=== PATIENT | male | born 1940 | race Caucasian/White ===

== ENCOUNTER → 2020-01-12 14:47 | Outpatient (ROUT) | payer MEDICARE, OTHER, SELFPAY ==
[2020-01-12 15:07] LABS: Add Manual Diff / Slide Review NO; Basophils Absolute Auto 100 /uL (0-100); Basophils Percent Auto 0.8 % (0-2); Eosinophils Absolute Auto 200 /uL (0-450); Eosinophils Percent Auto 2.5 % (2-4); Hematocrit 45.7 % (41-53); Hemoglobin 15.3 g/dL (13.5-17.5); Lymphocytes Absolute Auto 2000 /uL (1100-4500); Lymphocytes Percent Auto 26.6 % (25-40); Mean Corpuscular HGB Conc 33.4 % (30-36); Mean Corpuscular Hemoglobin 28.5 PG (26-34); Mean Corpuscular Volume 85.2 fL (80-100); Monocytes Absolute Auto 600 /uL (0-900); Monocytes Percent Auto 7.6 % (3-14); Neutrophils Absolute Auto 4700 /uL (1500-7000); Neutrophils Percent Auto 62.5 % (50-75); Platelet Count 367 X10^3/uL (150-400); Red Blood Cell Count 5.36 X10^6/uL (4.5-5.9); Red Cell Distribution Width 14.1 % (11.6-14.8); White Blood Cell Count 7.5 X10^3/uL (4.5-11.0)
[2020-01-12 15:19] LABS: Alanine Aminotransferase 24 IU/L (<50); Albumin 4.5 g/dL (3.5-5.0); Albumin Globulin Ratio 1.5 (1.0-2.8); Alkaline Phosphatase 73 U/L (38-126); Aspartate Aminotransferase 26 IU/L (17-59); BUN Creatinine Ratio 22.9 (6-22); Bilirubin Total 0.9 mg/dL (0.2-1.3); Blood Urea Nitrogen 22 mg/dL (9-20); Calcium 9.5 mg/dL (8.4-10.2); Carbon Dioxide 24 mmol/L (22-32); Chloride 104 mmol/L (98-107); Cholesterol 158 mg/dL (140-199); Estimated Glomerular Filt Rate > 60.0 mL/min (>60); Globulin 3.1 g/dL (1.7-4.1); Glucose 99 mg/dL (80-110); HDL Cholesterol 31 mg/dL (40-60); HEMOLYSIS < 15 (0-50); LDL Cholesterol Calculated 94 mg/dL (<100); Sodium 136 mmol/L (137-145); Total Protein 7.6 g/dL (6.3-8.2); Triglycerides 167 mg/dL (35-150)
[2020-01-12 15:41] LABS: TSH w/ Reflex to FT4 2.23 uIU/mL (0.47-4.68)
== END ==
PROVIDERS: PCP Internal Medicine; Visit Provider Internal Medicine
DX: E78.5 Hyperlipidemia, unspecified (principal); I10 Essential (primary) hypertension; R53.83 Other fatigue
CPT/HCPCS: 80053; 80061; 84443; 85025

== ENCOUNTER 2020-02-27 07:43 | Emergency (ER) | payer MEDICARE, OTHER, SELFPAY ==
[2020-02-27 08:17] VITALS: BP 130/64; PULSE 90; RESP 18; TEMP 37.5; O2SAT 93; BMI 28.1
--- NOTE | 2020-02-27 08:46 | ED.FALL ---
HPI - Fall General Chief Complaint: Fall Stated Complaint: POSS COVID SYMPTOMS 4 X DAYS Time Seen by Provider: 02/27/20 07:57 Source: patient Mode of arrival: Ambulatory Limitations: no limitations History of Present Illness HPI Narrative: PATIENT IS A 79-YEAR-OLD MALE WITH HISTORY OF CORONARY ARTERY DISEASE AND STENT IS PRESENTING WITH HIS BOTH HAVE BEEN EXTREMELY FATIGUED AND TIRED OVER THE LAST 5 DAYS. He lost his taste and smell 2 years ago. He denies any shortness of breath. Yesterday he got out of the shower felt extremely dizzy lightheaded and wound up on the floor after sitting on the bed. He had a brief loss of consciousness. He is not on any anticoagulation but he is on aspirin daily. He denies any nausea vomiting or weakness. He denies any chest pain or palpitations. He states he has nonproductive cough but denies any significant shortness of breath. He has no known exposure to COVID-19 that he is aware of. He states they have not traveled anywhere or seen anyone. Place fall occurred: home Related Data Home Medications Medication Instructions Recorded Confirmed aspirin 81 mg tablet,delayed 81 mg PO DAILY 04/05/19 09/18/19 release atorvastatin 20 mg tablet 20 mg PO DAILY 04/05/19 09/18/19 lisinopril 10 mg tablet 10 mg PO DAILY 04/05/19 09/18/19 metoprolol succinate 25 mg 25 mg PO DAILY 04/05/19 09/18/19 tablet,extended release 24 hr Allergies Allergy/AdvReac Type Severity Reaction Status Date / Time No Known Drug Allergies Allergy Verified 09/18/19 08:55 Review of Systems Review of Systems ROS Unobtainable: All systems reviewed & are unremarkable except as noted in HPI and below Constitutional Constitutional: Denies chills, Reports fatigue, Denies fever(s), Denies lethargy, Reports malaise and Denies weakness Eyes Eyes: Denies change in vision, Denies eye discharge, Denies irritation and Denies loss of vision Cardiovascular Cardiovascular: Reports as per HPI, Denies chest pain and Denies dyspnea Respiratory Respiratory: Reports cough and Denies dyspnea Gastrointestinal Gastrointestinal: Denies abdominal pain, Denies change in bowel habits, Denies diarrhea, Denies nausea and Denies vomiting Genitourinary Genitourinary: Denies urinary hesitancy and Denies urinary urgency Genitourinary: Denies urinary hesitancy and Denies urinary urgency Musculoskeletal Musculoskeletal: Denies back pain Integumentary/Breasts Skin/Breast: Denies pruritus, Denies erythema, Denies rash and Denies wounds Neurologic Neurologic: Denies loss of vision and Denies weakness Endocrine Endocrine: Reports fatigue Patient History Medical History Aortic root dilatation BPH w urinary obs/LUTS CAD (coronary artery disease) (~2014) Essential hypertension History of gout History of stroke Impaired fasting glucose Left ventricular hypertrophy due to hypertensive disease Leukocytosis Mild aortic stenosis Mixed hyperlipidemia Surgical History S/P appendectomy Status post primary angioplasty with coronary stent (02/16/15) Family History Mother Breast cancer genetic susceptibility Social History Smoking Status: Never smoker Smoking Status: Never smoker alcohol intake frequency: 0-2 drinks per day Substance Use Type: does not use Exam Initial Vital Signs Initial Vital Signs: Vital Signs Temperature 99.5 F 02/27/20 08:17 Pulse Rate 90 02/27/20 08:17 Respiratory Rate 18 02/27/20 08:17 Blood Pressure 130/64 02/27/20 08:17 Pulse Oximetry 93 02/27/20 08:17 GENERAL: Well-appearing, well-nourished and in no acute distress. HEENT: Head atraumatic,EOMI, pupils reactive, face symmetric, moist mucous membranes CARDIOVASCULAR: Regular rate and rhythm without murmurs, rubs or gallops. RESPIRATORY: Breath sounds equal bilaterally, no wheezes rales or rhonchi. ABDOMEN: Soft, nontender. Normoactive bowel sounds all 4 quadrants. No guarding or rebound. : No CVA tenderness EXTREMITIES: Normal range of motion, no clubbing or edema. Neurovascularly intact NEUROLOGICAL: Alert and oriented x4.Normal gait and speech. SKIN: Warm, dry, no laceration, no petechiae, no rashes or lesions. Course Orders Ordered: ED Orders 02/27/20 08:03 COVID19 Stat 02/27/20 08:45 XR chest 2V Stat 02/27/20 08:55 EKG-12 Lead Stat 02/27/20 09:05 Complete Blood Count AUTO DIFF Stat Comprehensive Metabolic Panel Stat D Dimer Stat Ferritin Stat Lactate Dehydrogenase Stat Lipase Stat NT-proBNP (BNP-Adult 18+) Stat Procalcitonin Stat Troponin & CK Cardiac Panel Stat Vital Signs Vital signs: Vital Signs - 8 hr 02/27/20 11:15 Pulse Rate 82 Respiratory Rate 16 Blood Pressure 146/73 H Pulse Oximetry 95 MDM - Fall Lab Data Attestation: I reviewed the patient's lab results. Result diagrams: 02/27/20 09:05 02/27/20 09:05 Labs: Lab Results 02/27/20 02/27/20 02/27/20 Range/Units 08:03 09:05 09:05 WBC 8.3 (4.5-11.0) X10^3/uL RBC 5.34 (4.5-5.9) X10^6/uL Hgb 15.1 (13.5-17.5) g/dL Hct 45.3 (41-53) % MCV 84.9 (80-100) fL MCH 28.3 (26-34) PG MCHC 33.3 (30-36) % RDW 14.6 (11.6-14.8) % Plt Count 203 (150-400) X10^3/uL Neut % (Auto) 79.2 H (50-75) % Lymph % (Auto) 12.7 L (25-40) % [place] % (Auto) 7.9 (3-14) % Eos % (Auto) 0.0 L (2-4) % Baso % (Auto) 0.2 (0-2) % Neut # (Auto) 6600 (0317-4934) /uL Lymph # (Auto) 1100 (5800-6552) /uL [place] # (Auto) 700 (0-900) /uL Eos # (Auto) 0 (0-450) /uL Baso # (Auto) 0 (0-100) /uL D-Dimer (<230) ng/mL Sodium 136 L (137-145) mmol/L Potassium 4.7 (3.4-5.1) mmol/L Chloride 106 (98-107) mmol/L Carbon Dioxide 23 (22-32) mmol/L BUN 29 H (9-20) mg/dL Creatinine 1.14 (0.66-1.25) mg/dL Estimated GFR > 60.0 (>60) mL/min BUN/Creatinine Ratio 25.4 H (6-22) Glucose 114 H (80-110) mg/dL Calcium 8.7 (8.4-10.2) mg/dL Ferritin (18-464) ng/mL Total Bilirubin 0.4 (0.2-1.3) mg/dL AST 71 H (17-59) IU/L ALT 51 H (<50) IU/L Alkaline Phosphatase 55 (38-126) U/L Lactate Dehydrogenase (313-618) U/L Total Creatine Kinase 172 H (55-170) U/L CK-MB (CK-2) < 0.22 (<2.37) ng/mL CK-MB (CK-2) Rel Index 0.1 L (1.5-5.0) % Troponin I < 0.012 (0.01-0.034) ng/mL NT-Pro-B Natriuret Pep (<450) pg/mL Total Protein 7.5 (6.3-8.2) g/dL Albumin 4.1 (3.5-5.0) g/dL Globulin 3.4 (1.7-4.1) g/dL Albumin/Globulin Ratio 1.2 (1.0-2.8) Lipase 537 H (23-300) U/L Procalcitonin (<0.5) ng/mL COVID-19 PCR Positive H (Negative) 02/27/20 02/27/20 02/27/20 Range/Units 09:05 09:05 09:05 WBC (4.5-11.0) X10^3/uL RBC (4.5-5.9) X10^6/uL Hgb (13.5-17.5) g/dL Hct (41-53) % MCV (80-100) fL MCH (26-34) PG MCHC (30-36) % RDW (11.6-14.8) % Plt Count (150-400) X10^3/uL Neut % (Auto) (50-75) % Lymph % (Auto) (25-40) % [place] % (Auto) (3-14) % Eos % (Auto) (2-4) % Baso % (Auto) (0-2) % Neut # (Auto) (0770-8363) /uL Lymph # (Auto) (5086-7586) /uL [place] # (Auto) (0-900) /uL Eos # (Auto) (0-450) /uL Baso # (Auto) (0-100) /uL D-Dimer 493 H (<230) ng/mL Sodium (137-145) mmol/L Potassium (3.4-5.1) mmol/L Chloride (98-107) mmol/L Carbon Dioxide (22-32) mmol/L BUN (9-20) mg/dL Creatinine (0.66-1.25) mg/dL Estimated GFR (>60) mL/min BUN/Creatinine Ratio (6-22) Glucose (80-110) mg/dL Calcium (8.4-10.2) mg/dL Ferritin 914 H (18-464) ng/mL Total Bilirubin (0.2-1.3) mg/dL AST (17-59) IU/L ALT (<50) IU/L Alkaline Phosphatase (38-126) U/L Lactate Dehydrogenase 763 H (313-618) U/L Total Creatine Kinase (55-170) U/L CK-MB (CK-2) (<2.37) ng/mL CK-MB (CK-2) Rel Index (1.5-5.0) % Troponin I (0.01-0.034) ng/mL NT-Pro-B Natriuret Pep 29 (<450) pg/mL Total Protein (6.3-8.2) g/dL Albumin (3.5-5.0) g/dL Globulin (1.7-4.1) g/dL Albumin/Globulin Ratio (1.0-2.8) Lipase (23-300) U/L Procalcitonin 0.24 (<0.5) ng/mL COVID-19 PCR (Negative) Imaging Data Chest x-ray: Radiologist's Impression: PROCEDURE: XR CHEST 2V INDICATIONS: passed out TECHNIQUE: 2 views of the chest were acquired. COMPARISON: None. FINDINGS: Surgical changes and devices: None. Lungs and pleura: Scattered subsegmental scarring and/or atelectasis. No acute consolidation. No pleural effusions or pneumothorax. Mediastinum: Mediastinal contours are normal. Heart size is normal. Bones and chest wall: No suspicious bony abnormalities. Soft tissues appear unremarkable. IMPRESSION: No acute disease. Dictated by: Mika Scott M.D. on 02/27/2020 at 9:30 ECG Data Attestation: I personally reviewed and interpreted this ECG as follows: Interpretation: Sinus rhythm rate 80 p.r. interval 178 QRS [address] changes no priors to compare MDM Narrative Medical decision making narrative: Patient has slightly elevated COVID-19 markers. Chest x-ray is clear. O2 is 93-94% on room air. He is feeling okay. I have instructed them to monitor oxygen levels frequently despite how they are feeling. And to return if oxygen levels are decreasing or failure feeling poorly. The patient's comorbidities coronary artery disease. He is already taking aspirin daily I also encouraged him to take vitamin-D supplements. SHAMA Index for Intubation after HFNC from [employer] on 02/27/2020 All calculations should be rechecked by clinician prior to use RESULT SUMMARY: 27.98 points SHAMA Index Low risk of progressing to intubation INPUTS: SpO? ?> 94 % FiO? ?> 21 % Respiratory rate ?> 16 breaths/min Discharge Plan Departure Patient Disposition: Home Clinical Impression: COVID-19 Instructions: DI for COVID-19 (Suspected or Confirmed ) Activity Restrictions/Additional Instructions: *You have been diagnosed with COVID-19 *What to do: Strongly recommend you purchase a home pulse oximeter to monitor your oxygen level. If your oxygen level starts decreasing lower than 88% need to return to the emergency department. Is also recommended that he start taking supplements such as vitamin D around 6636-1527 units daily *Continue to take medications as directed *Follow up with your primary care provider in 2-3 days *Return to ER if you should have increasing shortness of breath, chest pain, bluish lips or any new, worsening or concerning symptoms CDC Guidelines for home isolation: - Stay away from others - Limit contact with pets and animals: If you must care for a pet, wash your hands before and after interacting with them - Wear a mask if you are sick - Cover your mouth and nose with a tissue when you cough or sneeze. Dispose of tissues in a lined trash can and wash your hands immediately with soap and water for at least 20 seconds. If soap and water are not available, clean hands with alcohol-based hand environmental health and safety leader that contains at least 60% alcohol. - Clean your hands often with soap and water for at least 20 seconds - Avoid touching your eyes, nose and mouth with unwashed hands - Do not share dishes, drinking glasses, cups, eating utensils, towels, or bedding with other people in your home. After using these items, wash them thoroughly with soap and water or put in the writing manager. - Clean high-touch surfaces in your isolation area (?sick room? and bathroom) every day; let a caregiver clean and disinfect high-touch surfaces in other areas of the home. Clean the area or item with soap and water or another detergent if it is dirty. Then, use a household disinfectant. Seek medical attention, but call first: - Seek medical care right away if your illness is worsening (for example, if you have difficulty breathing). - Call your doctor before going in: Before going to the doctor?s office or emergency room, call ahead and tell them your symptoms. They will tell you what to do. - If possible, put on a facemask before you enter the building. If you can?t put on a facemask, try to keep a safe distance from other people (at least 6 feet away). This will help protect the people in the office or waiting room. - Follow care instructions from your healthcare provider and local health department: Your local health authorities will give instructions on checking your symptoms and reporting information. Emergency warning signs for COVID-19: - Difficulty breathing or shortness of breath - Persistent pain or pressure in the chest - New confusion or inability to arouse - Bluish lips or face Prescriptions: No Action atorvastatin 20 mg tablet 20 mg PO DAILY RF: 0 lisinopril 10 mg tablet 10 mg PO DAILY RF: 0 metoprolol succinate [Toprol XL] 25 mg tablet extended release 24 hr 25 mg PO DAILY RF: 0 aspirin [Adult Low Dose Aspirin] 81 mg tablet,delayed release (DR/EC) 81 mg PO DAILY RF: 0 Referrals: Danny Rosales MD [Primary Care Provider] -
[2020-02-27 08:48] LABS: COVID19 -Nasal RAPID POSITIVE (Negative)
[2020-02-27 08:52] VITALS: BP 125/66; PULSE 80; RESP 31; O2SAT 94
[2020-02-27 09:00] VITALS: PULSE 79; RESP 27; O2SAT 94
[2020-02-27 09:20] LABS: Add Manual Diff / Slide Review NO; Basophils Absolute Auto 0 /uL (0-100); Basophils Percent Auto 0.2 % (0-2); Eosinophils Absolute Auto 0 /uL (0-450); Hematocrit 45.3 % (41-53); Hemoglobin 15.1 g/dL (13.5-17.5); Lymphocytes Absolute Auto 1100 /uL (1100-4500); Lymphocytes Percent Auto 12.7 % (25-40); Mean Corpuscular HGB Conc 33.3 % (30-36); Mean Corpuscular Hemoglobin 28.3 PG (26-34); Mean Corpuscular Volume 84.9 fL (80-100); Monocytes Absolute Auto 700 /uL (0-900); Monocytes Percent Auto 7.9 % (3-14); Neutrophils Absolute Auto 6600 /uL (1500-7000); Neutrophils Percent Auto 79.2 % (50-75); Platelet Count 203 X10^3/uL (150-400); Red Blood Cell Count 5.34 X10^6/uL (4.5-5.9); Red Cell Distribution Width 14.6 % (11.6-14.8); White Blood Cell Count 8.3 X10^3/uL (4.5-11.0)
[2020-02-27 09:43] LABS: Alanine Aminotransferase 51 IU/L (<50); Albumin 4.1 g/dL (3.5-5.0); Albumin Globulin Ratio 1.2 (1.0-2.8); Alkaline Phosphatase 55 U/L (38-126); Aspartate Aminotransferase 71 IU/L (17-59); BUN Creatinine Ratio 25.4 (6-22); Bilirubin Total 0.4 mg/dL (0.2-1.3); Blood Urea Nitrogen 29 mg/dL (9-20); Calcium 8.7 mg/dL (8.4-10.2); Carbon Dioxide 23 mmol/L (22-32); Chloride 106 mmol/L (98-107); Creatine Kinase 172 U/L (55-170); Estimated Glomerular Filt Rate > 60.0 mL/min (>60); Globulin 3.4 g/dL (1.7-4.1); Glucose 114 mg/dL (80-110); Lipase 537 U/L (23-300); Potassium 4.7 mmol/L (3.4-5.1); Sodium 136 mmol/L (137-145); Total Protein 7.5 g/dL (6.3-8.2)
[2020-02-27 09:54] LABS: Troponin I < 0.012 ng/mL (0.01-0.034)
[2020-02-27 09:55] LABS: D Dimer 493 ng/mL (<230)
[2020-02-27 09:57] LABS: Procalcitonin 0.24 ng/mL (<0.5)
[2020-02-27 09:59] LABS: CKMB % Relative Index 0.1 % (1.5-5.0); Creatine Kinase MB < 0.22 ng/mL (<2.37); HEMOLYSIS 54 (0-50)
[2020-02-27 10:13] LABS: Lactate Dehydrogenase 763 U/L (313-618)
[2020-02-27 10:20] LABS: NT-proBNP (BNP-Adult 18+) 29 pg/mL (<450)
[2020-02-27 10:46] LABS: Ferritin 914 ng/mL (18-464)
[2020-02-27 11:15] VITALS: BP 146/73; PULSE 82; RESP 16; O2SAT 95
== END 2020-02-27 11:33 | disposition home or self-care (01) ==
PROVIDERS: Emergency Provider Emergency Medicine; PCP Internal Medicine
DX: U07.1 COVID-19 (principal); I25.10 Atherosclerotic heart disease of native coronary artery without angina pectoris; Z95.5 Presence of coronary angioplasty implant and graft; R42 Dizziness and giddiness; Z79.82 Long term (current) use of aspirin; R05 Cough; Z86.73 Personal history of transient ischemic attack (TIA), and cerebral infarction without residual deficits; E78.5 Hyperlipidemia, unspecified; I10 Essential (primary) hypertension; R55 Syncope and collapse
CPT/HCPCS: 36415; 71046; 80053; 82550; 82553; 82728; 83615; 83690; 83880; 84145; 84484; 85025; 85379; 87635; 93005; 99283; 99284

== ENCOUNTER 2020-02-29 08:39 | Emergency (ER) | payer MEDICARE, OTHER, SELFPAY ==
--- NOTE | 2020-02-29 08:44 | DI.RAD.S_ITS ---
PROCEDURE: XR CHEST 1V INDICATIONS: covid TECHNIQUE: One view of the chest was acquired. COMPARISON: [facility], CR, XR CHEST 2V, 02/27/2020, 9:05. FINDINGS: Surgical changes and devices: None. Lungs and pleura: Platelike atelectasis at left lung base is seen. Scattered atelectasis at right lung base is also noted. No focal infiltrate. No pleural effusions or pneumothorax. Mediastinum: Mediastinal contours appear normal. Heart size is normal. Bones and chest wall: No suspicious bony lesions. Overlying soft tissues appear unremarkable. IMPRESSION: Bibasilar atelectasis. No definite focal infiltrate. No pleural effusion or pneumothorax. Dictated by: Kevin Underwood M.D. on 02/29/2020 at 9:58 Approved by: Kevin Underwood M.D. on 02/29/2020 at 9:59
[2020-02-29 08:51] VITALS: BP 136/65; PULSE 73; RESP 18; TEMP 37.2; O2SAT 92; BMI 28.1
[2020-02-29 09:38] LABS: Add Manual Diff / Slide Review NO; Basophils Absolute Auto 0 /uL (0-100); Basophils Percent Auto 0.4 % (0-2); Eosinophils Absolute Auto 0 /uL (0-450); Eosinophils Percent Auto 0.1 % (2-4); Hematocrit 44.2 % (41-53); Hemoglobin 14.9 g/dL (13.5-17.5); Lymphocytes Absolute Auto 1000 /uL (1100-4500); Lymphocytes Percent Auto 17.3 % (25-40); Mean Corpuscular HGB Conc 33.8 % (30-36); Mean Corpuscular Hemoglobin 28.3 PG (26-34); Mean Corpuscular Volume 83.7 fL (80-100); Monocytes Absolute Auto 400 /uL (0-900); Neutrophils Absolute Auto 4100 /uL (1500-7000); Neutrophils Percent Auto 74.2 % (50-75); Platelet Count 172 X10^3/uL (150-400); Red Blood Cell Count 5.28 X10^6/uL (4.5-5.9); Red Cell Distribution Width 14.6 % (11.6-14.8); White Blood Cell Count 5.6 X10^3/uL (4.5-11.0)
[2020-02-29 09:46] LABS: D Dimer 258 ng/mL (<230)
[2020-02-29 09:51] LABS: Lactate Dehydrogenase 776 U/L (313-618)
[2020-02-29 09:53] LABS: Alanine Aminotransferase 47 IU/L (<50); Albumin Globulin Ratio 1.3 (1.0-2.8); Alkaline Phosphatase 55 U/L (38-126); Aspartate Aminotransferase 61 IU/L (17-59); BUN Creatinine Ratio 22.2 (6-22); Bilirubin Total 0.5 mg/dL (0.2-1.3); Blood Urea Nitrogen 24 mg/dL (9-20); C-Reactive Protein Quant 1.9 mg/dL (<1.0); Calcium 8.4 mg/dL (8.4-10.2); Carbon Dioxide 23 mmol/L (22-32); Chloride 103 mmol/L (98-107); Creatine Kinase 125 U/L (55-170); Estimated Glomerular Filt Rate > 60.0 mL/min (>60); Globulin 3.2 g/dL (1.7-4.1); Glucose 111 mg/dL (80-110); HEMOLYSIS 22 (0-50); Potassium 4.3 mmol/L (3.4-5.1); Sodium 134 mmol/L (137-145); Total Protein 7.2 g/dL (6.3-8.2)
[2020-02-29 10:00] LABS: NT-proBNP (BNP-Adult 18+) 40 pg/mL (<450)
[2020-02-29 10:02] LABS: Troponin I < 0.012 ng/mL (0.01-0.034)
[2020-02-29 10:05] LABS: Procalcitonin < 0.05 ng/mL (<0.5)
[2020-02-29 10:06] LABS: CKMB % Relative Index 0.2 % (1.5-5.0); Creatine Kinase MB < 0.22 ng/mL (<2.37)
[2020-02-29 10:11] VITALS: BP 133/65; PULSE 74; RESP 18; O2SAT 93
--- NOTE | 2020-02-29 10:27 | ED.SOB ---
HPI - SOB/Dyspnea General Chief Complaint: Shortness of Breath/Dyspnea Stated Complaint: positive kamara Time Seen by Provider: 02/29/20 08:43 Source: patient Mode of arrival: Ambulatory Limitations: no limitations History of Present Illness HPI Narrative: Patient is 79-year-old male who presents with a known COVID-19 and overall not feeling well. He was seen evaluated a few days ago and discharged home. His states that they have been checking there oxygen with her home pulse oximeter it was 90% this morning she did not feel well but he has no complaints and they both came to the emergency department for evaluation. He states that he overall has been feeling better but is not back up to his normal self. He denies any chest pain shortness of breath or cough. He lost his taste and smell a few years ago. He really has no changes from previously. Context: recent illness Related Data Home Medications Medication Instructions Recorded Confirmed aspirin 81 mg tablet,delayed 81 mg PO DAILY 04/05/19 09/18/19 release atorvastatin 20 mg tablet 20 mg PO DAILY 04/05/19 09/18/19 lisinopril 10 mg tablet 10 mg PO DAILY 04/05/19 09/18/19 metoprolol succinate 25 mg 25 mg PO DAILY 04/05/19 09/18/19 tablet,extended release 24 hr Allergies Allergy/AdvReac Type Severity Reaction Status Date / Time No Known Drug Allergies Allergy Verified 02/29/20 08:51 Review of Systems Review of Systems Narrative: GENERAL: Denies chills, fatigue, malaise, fever, sweats, travel HEENT: Denies sinus pain, ear pain, sore throat, difficulty swallowing, neck pain RESPIRATORY: Denies dyspnea, cough, wheezing, hemoptysis, sputum. CARDIOVASCULAR: Denies chest pain, palpitations, orthopnea, edema GASTROINTESTINAL: Denies nausea, vomiting, abdominal pain, diarrhea, constipation, melena. : Denies dysuria, frequency, incontinence, hematuria, urinary retention, flank pain. MUSCULOSKELETAL: Denies weakness, joint pain, or bony pain SKIN: No rash, no erythema, no pruritus NEUROLOGIC: Denies weakness, dizziness, headache, numbness, change in speech, confusion PSYCHIATRIC: No concerning psychosocial issues. 12 point review of systems is negative except for those stated above and HPI Patient History Medical History Aortic root dilatation BPH w urinary obs/LUTS CAD (coronary artery disease) (~2014) Essential hypertension History of gout History of stroke Impaired fasting glucose Left ventricular hypertrophy due to hypertensive disease Leukocytosis Mild aortic stenosis Mixed hyperlipidemia Surgical History S/P appendectomy Status post primary angioplasty with coronary stent (02/16/15) Family History Mother Breast cancer genetic susceptibility Social History Smoking Status: Never smoker Smoking Status: Never smoker alcohol intake frequency: 0-2 drinks per day Substance Use Type: does not use Exam Initial Vital Signs Initial Vital Signs: Vital Signs Temperature 99 F 02/29/20 08:51 Pulse Rate 73 02/29/20 08:51 Respiratory Rate 18 02/29/20 08:51 Blood Pressure 136/65 02/29/20 08:51 Pulse Oximetry 92 02/29/20 08:51 GENERAL: Well-appearing, well-nourished and in no acute distress. HEENT: Head atraumatic,EOMI, pupils reactive, face symmetric, moist mucous membranes CARDIOVASCULAR: Regular rate and rhythm without murmurs, rubs or gallops. RESPIRATORY: Breath sounds equal bilaterally, no wheezes rales or rhonchi. ABDOMEN: Soft, nontender. Normoactive bowel sounds all 4 quadrants. No guarding or rebound. EXTREMITIES: Normal range of motion, no clubbing or edema. Neurovascularly intact NEUROLOGICAL: Alert and oriented x4.Normal gait and speech. Cranial nerves II through XII grossly intact. SKIN: Warm, dry, no laceration, no petechiae, no rashes or lesions. Course Orders Ordered: ED Orders 02/29/20 08:44 XR chest 1V Stat EKG-12 Lead Stat 02/29/20 09:25 C-Reactive Protein Quant Stat Complete Blood Count AUTO DIFF Stat Comprehensive Metabolic Panel Stat D Dimer Stat Ferritin Stat Lactate (Lactic Acid) Stat Lactate Dehydrogenase Stat NT-proBNP (BNP-Adult 18+) Stat Procalcitonin Stat Troponin & CK Cardiac Panel Stat Vital Signs Vital signs: Vital Signs - 8 hr 02/29/20 08:51 02/29/20 10:11 Temperature 99 F Pulse Rate 73 74 Respiratory Rate 18 18 Blood Pressure 136/65 133/65 Pulse Oximetry 92 93 MDM - SOB/Dyspnea Lab Data Attestation: I reviewed the patient's lab results. Result diagrams: 02/29/20 09:25 02/29/20 09:25 Labs: Lab Results 02/29/20 02/29/20 02/29/20 Range/Units 09:25 09:25 09:25 WBC 5.6 (4.5-11.0) X10^3/uL RBC 5.28 (4.5-5.9) X10^6/uL Hgb 14.9 (13.5-17.5) g/dL Hct 44.2 (41-53) % MCV 83.7 (80-100) fL MCH 28.3 (26-34) PG MCHC 33.8 (30-36) % RDW 14.6 (11.6-14.8) % Plt Count 172 (150-400) X10^3/uL Neut % (Auto) 74.2 (50-75) % Lymph % (Auto) 17.3 L (25-40) % [place] % (Auto) 8.0 (3-14) % Eos % (Auto) 0.1 L (2-4) % Baso % (Auto) 0.4 (0-2) % Neut # (Auto) 4100 (3811-8116) /uL Lymph # (Auto) 1000 L (2489-9214) /uL [place] # (Auto) 400 (0-900) /uL Eos # (Auto) 0 (0-450) /uL Baso # (Auto) 0 (0-100) /uL D-Dimer 258 H (<230) ng/mL Sodium 134 L (137-145) mmol/L Potassium 4.3 (3.4-5.1) mmol/L Chloride 103 (98-107) mmol/L Carbon Dioxide 23 (22-32) mmol/L BUN 24 H (9-20) mg/dL Creatinine 1.08 (0.66-1.25) mg/dL Estimated GFR > 60.0 (>60) mL/min BUN/Creatinine Ratio 22.2 H (6-22) Glucose 111 H (80-110) mg/dL Lactate (0.7-2.1) mmol/L Calcium 8.4 (8.4-10.2) mg/dL Ferritin 1040 H (18-464) ng/mL Total Bilirubin 0.5 (0.2-1.3) mg/dL AST 61 H (17-59) IU/L ALT 47 (<50) IU/L Alkaline Phosphatase 55 (38-126) U/L Lactate Dehydrogenase (313-618) U/L Total Creatine Kinase 125 (55-170) U/L CK-MB (CK-2) < 0.22 (<2.37) ng/mL CK-MB (CK-2) Rel Index 0.2 L (1.5-5.0) % Troponin I < 0.012 (0.01-0.034) ng/mL C-Reactive Protein 1.9 H (<1.0) mg/dL NT-Pro-B Natriuret Pep (<450) pg/mL Total Protein 7.2 (6.3-8.2) g/dL Albumin 4.0 (3.5-5.0) g/dL Globulin 3.2 (1.7-4.1) g/dL Albumin/Globulin Ratio 1.3 (1.0-2.8) Procalcitonin (<0.5) ng/mL 02/29/20 02/29/20 02/29/20 Range/Units 09:25 09:25 09:25 WBC (4.5-11.0) X10^3/uL RBC (4.5-5.9) X10^6/uL Hgb (13.5-17.5) g/dL Hct (41-53) % MCV (80-100) fL MCH (26-34) PG MCHC (30-36) % RDW (11.6-14.8) % Plt Count (150-400) X10^3/uL Neut % (Auto) (50-75) % Lymph % (Auto) (25-40) % [place] % (Auto) (3-14) % Eos % (Auto) (2-4) % Baso % (Auto) (0-2) % Neut # (Auto) (1357-2211) /uL Lymph # (Auto) (2685-7993) /uL [place] # (Auto) (0-900) /uL Eos # (Auto) (0-450) /uL Baso # (Auto) (0-100) /uL D-Dimer (<230) ng/mL Sodium (137-145) mmol/L Potassium (3.4-5.1) mmol/L Chloride (98-107) mmol/L Carbon Dioxide (22-32) mmol/L BUN (9-20) mg/dL Creatinine (0.66-1.25) mg/dL Estimated GFR (>60) mL/min BUN/Creatinine Ratio (6-22) Glucose (80-110) mg/dL Lactate 1.0 (0.7-2.1) mmol/L Calcium (8.4-10.2) mg/dL Ferritin (18-464) ng/mL Total Bilirubin (0.2-1.3) mg/dL AST (17-59) IU/L ALT (<50) IU/L Alkaline Phosphatase (38-126) U/L Lactate Dehydrogenase 776 H (313-618) U/L Total Creatine Kinase (55-170) U/L CK-MB (CK-2) (<2.37) ng/mL CK-MB (CK-2) Rel Index (1.5-5.0) % Troponin I (0.01-0.034) ng/mL C-Reactive Protein (<1.0) mg/dL NT-Pro-B Natriuret Pep 40 (<450) pg/mL Total Protein (6.3-8.2) g/dL Albumin (3.5-5.0) g/dL Globulin (1.7-4.1) g/dL Albumin/Globulin Ratio (1.0-2.8) Procalcitonin < 0.05 (<0.5) ng/mL Imaging Data Chest x-ray: Radiologist's Impression: PROCEDURE: XR CHEST 1V INDICATIONS: covid TECHNIQUE: One view of the chest was acquired. COMPARISON: [facility], , XR CHEST 2V, 02/27/2020, 9:05. FINDINGS: Surgical changes and devices: None. Lungs and pleura: Platelike atelectasis at left lung base is seen. Scattered atelectasis at right lung base is also noted. No focal infiltrate. No pleural effusions or pneumothorax. Mediastinum: Mediastinal contours appear normal. Heart size is normal. Bones and chest wall: No suspicious bony lesions. Overlying soft tissues appear unremarkable. IMPRESSION: Bibasilar atelectasis. No definite focal infiltrate. No pleural effusion or pneumothorax. Dictated by: Kevin Underwood M.D. on 02/29/2020 at 9:58 MDM Narrative Medical decision making narrative: Okay. Laboratory markers are relatively stable ferritin is slightly higher but D-dimer is lower. He has had oxygen level over 90% at this time will not requiring oxygen. Have discussed both with he and his no need for admission at this time. Discussed when to return to the emergency department. I discussed all findings with the patient and , Education has been performed regarding treatment plan, diagnosis, warning signs and symptoms and all concerns have been addressed. Verbally agree with and understood all of the above. Discharge Plan Departure Patient Disposition: Home Clinical Impression: COVID-19 Instructions: DI for COVID-19 (Suspected or Confirmed ) Activity Restrictions/Additional Instructions: *You have been diagnosed with COVID-19 *What to do: At this time you do not require hospital admission. You do not require hospital admission typically in till your oxygen level decreases to 88%. There is also unfortunately no medication to make you feel better. Please continue to lay on her stomach if you are having any difficulty breathing. Increase food and fluid intake as tolerated. Rest. Take Tylenol as needed for fever *Continue to take medications as directed Tylenol 650 mg every 4-6 hours if needed for pain or fever Zofran 4 mg every 8 hours if needed for nausea or vomiting *Follow up with your primary care provider in 2-3 days *Return to ER if you should have increasing shortness of breath, oxygen levels 88% or less, decreased intake, passing out or any new, worsening or concerning symptoms Prescriptions: No Action atorvastatin 20 mg tablet 20 mg PO DAILY RF: 0 lisinopril 10 mg tablet 10 mg PO DAILY RF: 0 metoprolol succinate [Toprol XL] 25 mg tablet extended release 24 hr 25 mg PO DAILY RF: 0 aspirin [Adult Low Dose Aspirin] 81 mg tablet,delayed release (DR/EC) 81 mg PO DAILY RF: 0 Referrals: Alba Haas MD [Primary Care Provider] -
[2020-02-29 11:07] LABS: Ferritin 1040 ng/mL (18-464)
[2020-02-29 11:23] VITALS: BP 123/67; PULSE 74; RESP 16; O2SAT 93
== END 2020-02-29 11:24 | disposition home or self-care (01) ==
PROVIDERS: Emergency Provider Emergency Medicine; PCP Internal Medicine
DX: U07.1 COVID-19 (principal)
CPT/HCPCS: 36415; 71045; 80053; 82550; 82553; 82728; 83605; 83615; 83880; 84145; 84484; 85025; 85379; 86140; 99281

== ENCOUNTER 2020-03-03 12:54 | Inpatient (IN) | payer MEDICARE, OTHER, SELFPAY ==
[2020-03-03] VITALS (9 sets, daily range): BP systolic 113–155; BP diastolic 65–76; PULSE 56–76; RESP 16–32; TEMP 36.9–37.2; O2SAT 88–97; BMI 28.1
--- NOTE | 2020-03-03 13:05 | DI.RAD.S_ITS ---
PROCEDURE: XR CHEST 1V INDICATIONS: Short of breath, COVID + TECHNIQUE: One view of the chest was acquired. COMPARISON: [facility], CR, XR CHEST 2V, 02/27/2020, 9:05. [facility], CR, XR CHEST 1V, 02/29/2020, 9:21. FINDINGS: Surgical changes and devices: None. Lungs and pleura: Mild patchy interstitial type infiltrates are seen, right worse than left. An incomplete inspiratory result is noted, causing a crowded appearance to the lung markings. No pneumothorax or significant pleural effusions are seen. Mediastinum: Mediastinal contours appear normal. Heart size is normal. Bones and chest wall: No suspicious bony lesions. Age-appropriate bony degenerative changes are seen. Overlying soft tissues appear unremarkable. IMPRESSION: Mild, patchy bilateral interstitial infiltrates are seen, which are consistent with the given clinical history of COVID pneumonia. Dictated by: Bogdan Davis M.D. on 03/03/2020 at 12:43 Approved by: Bogdan Davis M.D. on 03/03/2020 at 12:44
--- NOTE | 2020-03-03 13:21 | ED.SOB ---
HPI - SOB/Dyspnea General Chief Complaint: Shortness of Breath/Dyspnea Stated Complaint: covid positive, trouble breathing, cough Time Seen by Provider: 03/03/20 12:55 Source: patient and family Mode of arrival: Ambulatory Limitations: no limitations History of Present Illness HPI Narrative: 79-year-old male nonsmoker with history of coronary artery disease presents with a chief complaint of significant shortness of breath with minimal exertion. He and his were both diagnosed with COVID-19 on 02/26. That was the 4th day of illness. This is not other 3rd visit for evaluation and up until this point labs, imaging and evaluation of an reassuring. He has a home pulse oximeter and his pulse ox has been down in the mid 80s. He denies any headache, runny nose sore throat. He has had a dry hacking cough and as stated becomes significantly short of breath with minimal exertion. He denies nausea, vomiting or diarrhea. Today is his 9th day of illness. MD Complaint: shortness of breath and cough Onset (ago): day(s) Context: recent illness Severity: severe Consistency/Duration: constant Relieving factors: rest Exacerbating factors: exertion Associated symptoms: denies other symptoms Treatment prior to arrival: none Related Data Home oxygen amount: none Home Medications Medication Instructions Recorded Confirmed aspirin 81 mg tablet,delayed 81 mg PO DAILY 04/05/19 03/03/20 release atorvastatin 20 mg tablet 20 mg PO DAILY 04/05/19 03/03/20 lisinopril 10 mg tablet 10 mg PO DAILY 04/05/19 03/03/20 metoprolol succinate 25 mg 25 mg PO DAILY 04/05/19 03/03/20 tablet,extended release 24 hr Allergies Allergy/AdvReac Type Severity Reaction Status Date / Time No Known Drug Allergies Allergy Verified 03/03/20 13:23 Review of Systems Constitutional Constitutional: Denies chills, Reports fatigue, Denies fever(s), Denies frequent falls, Denies lethargy and Reports weakness Eyes Eyes: Denies change in vision, Denies eye discharge, Denies irritation and Denies loss of vision ENT Ears, Nose, Mouth, and Throat: Denies change in voice, Denies dizziness, Denies neck pain, Denies sore throat and Denies throat swelling Cardiovascular Cardiovascular: Denies chest pain, Denies irregular heart rhythm, Denies lightheadedness, Denies palpitations, Reports dyspnea, Reports dyspnea on exertion and Denies orthopnea Respiratory Respiratory: Reports cough, Reports dyspnea, Reports dyspnea on exertion and Denies wheezing Gastrointestinal Gastrointestinal: Denies abdominal pain, Denies change in bowel habits, Denies diarrhea, Denies nausea and Denies vomiting Musculoskeletal Musculoskeletal: Denies neck pain and Denies numbness Integumentary/Breasts Skin/Breast: Denies pruritus, Denies erythema, Denies rash and Denies wounds Neurologic Neurologic: Denies behavioral changes, Denies confusion, Denies dizziness, Denies frequent falls, Denies loss of vision, Denies numbness and Reports weakness Psychiatric Psychiatric: Denies anxiety, Denies behavioral changes, Denies confusion, Denies depression, Denies homicidal ideation and Denies suicidal ideation Endocrine Endocrine: Reports fatigue, Denies flushing and Denies palpitations Hematologic/Lymphatic Hematologic/Lymphatic: Denies easy bruising Allergic/Immunologic Allergic/Immunologic: Denies urticaria, Denies throat swelling and Denies wheezing Patient History Medical History Aortic root dilatation BPH w urinary obs/LUTS CAD (coronary artery disease) (~2014) Essential hypertension History of gout History of stroke Impaired fasting glucose Left ventricular hypertrophy due to hypertensive disease Leukocytosis Mild aortic stenosis Mixed hyperlipidemia Surgical History S/P appendectomy Status post primary angioplasty with coronary stent (02/16/15) Family History Mother Breast cancer genetic susceptibility Social History household members: spouse Smoking Status: Never smoker Smoking Status: Never smoker alcohol intake frequency: 0-2 drinks per day Substance Use Type: does not use Exam Narrative Exam Narrative: GENERAL: [79] year old patient appears stated age. Well-nourished, well-developed patient, in obvious significant distress. Rapid shallow breathing. HEAD: Atraumatic. Normocephalic. EYES: Pupils equal round and reactive. Extraocular motions intact. No scleral icterus. No injection or drainage. ENT: Nose without bleeding, purulent drainage. Throat without erythema, tonsillar hypertrophy or exudate. Airway patent. NECK: Trachea midline. Non tender CARDIOVASCULAR: Regular rate and rhythm without murmurs, gallops, or rubs. RESPIRATORY: Increased work of breathing. Rapid, shallow. Breathless. Crackles in B/L bases. L>R GASTROINTESTINAL: Abdomen soft, non-tender, nondistended. EXTREMITIES: No edema or joint tenderness. BACK: Nontender without deformity or crepitance. No flank tenderness. NEURO: AOx3. SKIN: No rash or erythema of visible areas Initial Vital Signs Initial Vital Signs: Vital Signs Temperature 99.0 F 03/03/20 13:05 Course Orders Ordered: ED Orders 03/03/20 13:05 XR chest 1V Stat 03/03/20 13:19 EKG-12 Lead Stat 03/03/20 13:30 C-Reactive Protein Quant Stat Complete Blood Count AUTO DIFF Stat Comprehensive Metabolic Panel Stat D Dimer Stat Ferritin Stat Lactate (Lactic Acid) Stat Lactate Dehydrogenase Stat NT-proBNP (BNP-Adult 18+) Stat Procalcitonin Stat Troponin & CK Cardiac Panel Stat 03/03/20 13:53 Respiratory Panel (Film Array) Stat 03/03/20 14:07 Arterial Blood Gas Stat 03/03/20 14:11 Blood Culture Stat 03/03/20 14:48 Blood Culture Stat Acetaminophen (Acetaminophen 325 Mg Tablet) 650 mg PO Q6HR PRN PRN Reason: Fever/Mild Pain (1-3) Aspirin (Aspirin Ec 81 Mg Tablet) 81 mg PO DAILY [facility] Atorvastatin Calcium (Atorvastatin 20 Mg Tablet) 20 mg PO BEDTIME [facility] Bisacodyl (Bisacodyl 10 Mg Supp) 10 mg MD DAILY PRN PRN Reason: Constipation Dexamethasone (Dexamethasone 10 Mg/Ml Vial) 6 mg IV DAILY [facility] Docusate Sodium (Docusate 100 Mg Capsule) 100 mg PO BID [facility] Enoxaparin Sodium (Enoxaparin 40 Mg/0.4 Ml Syringe) 40 mg SUBCUT DAILY [facility] Remdesivir 100 mg/ Sodium (Chloride) 250 mls @ 250 mls/hr IV DAILY [facility]ICKI Stop: 03/09/20 18:00 Lisinopril (Lisinopril 10 Mg Tablet) 10 mg PO DAILY [facility] Magnesium Hydroxide (Magnesium Hydroxide 30 Ml Udc) 30 ml PO DAILY PRN PRN Reason: Constipation Metoprolol Succinate (Metoprolol Er 25 Mg Tablet) 25 mg PO DAILY [facility] Naloxone HCl (Naloxone 0.4 Mg/Ml Vial) 0.2 mg IV Q2MIN PRN PRN Reason: Opiate Reversal Ondansetron HCl (Ondansetron 4 Mg/2 Ml Inj) 4 mg IV Q8HR PRN PRN Reason: Nausea And Vomiting Discontinued Medications Dexamethasone (Dexamethasone 10 Mg/Ml Vial) 6 mg IV NOW ONE Stop: 03/03/20 13:16 Last Admin: 03/03/20 13:31 Dose: 6 mg Documented by: LINA Enoxaparin Sodium (Enoxaparin 40 Mg/0.4 Ml Syringe) 40 mg SUBCUT NOW ONE Stop: 03/03/20 14:18 Last Admin: 03/03/20 14:23 Dose: 40 mg Documented by: WENDY Remdesivir 200 mg/ Sodium (Chloride) 250 mls @ 250 mls/hr IV NOW ONE Stop: 03/03/20 13:16 Last Infusion: 03/03/20 15:00 Dose: 0 mls/hr Documented by: Admin: 03/03/20 13:48 Dose: 250 mls/hr Documented by: MEKA Vital Signs Vital signs: Vital Signs - 8 hr 03/03/20 13:05 03/03/20 13:18 03/03/20 14:12 Temperature 99.0 F Pulse Rate 76 75 Respiratory Rate 32 H 22 Blood Pressure 155/76 H Pulse Oximetry 88 L 97 03/03/20 14:30 03/03/20 15:00 Temperature Pulse Rate 75 69 Respiratory Rate 18 16 Blood Pressure 137/72 129/65 Pulse Oximetry 95 95 MDM - SOB/Dyspnea Lab Data Result diagrams: 03/03/20 13:30 03/03/20 13:30 Labs: Lab Results 03/03/20 03/03/20 03/03/20 Range/Units 13:30 13:30 13:30 WBC 6.2 (4.5-11.0) X10^3/uL RBC 5.18 (4.5-5.9) X10^6/uL Hgb 14.7 (13.5-17.5) g/dL Hct 43.1 (41-53) % MCV 83.1 (80-100) fL MCH 28.3 (26-34) PG MCHC 34.0 (30-36) % RDW 14.8 (11.6-14.8) % Plt Count 322 (150-400) X10^3/uL Neut % (Auto) 73.6 (50-75) % Lymph % (Auto) 15.6 L (25-40) % Bethel % (Auto) 10.6 (3-14) % Eos % (Auto) 0.0 L (2-4) % Baso % (Auto) 0.2 (0-2) % Neut # (Auto) 4600 (2704-5482) /uL Lymph # (Auto) 1000 L (6249-9583) /uL [place]hel # (Auto) 700 (0-900) /uL Eos # (Auto) 0 (0-450) /uL Baso # (Auto) 0 (0-100) /uL D-Dimer 461 H (<230) ng/mL ABG pH (7.35-7.45) ABG pCO2 (35-45) mmHg ABG pO2 (80-100) mmHg ABG HCO3 (22-26) mmol/L ABG Total CO2 (21-31) mmol/L ABG O2 Saturation (95-100) % ABG Base Excess (-2-2) mmol/L FiO2 Sodium 133 L (137-145) mmol/L Potassium 4.2 (3.4-5.1) mmol/L Chloride 101 (98-107) mmol/L Carbon Dioxide 24 (22-32) mmol/L BUN 19 (9-20) mg/dL Creatinine 1.04 (0.66-1.25) mg/dL Estimated GFR > 60.0 (>60) mL/min BUN/Creatinine Ratio 18.3 (6-22) Glucose 108 (80-110) mg/dL Lactate (0.7-2.1) mmol/L Calcium 8.5 (8.4-10.2) mg/dL Ferritin 1090 H (18-464) ng/mL Total Bilirubin 0.5 (0.2-1.3) mg/dL AST 59 (17-59) IU/L ALT 45 (<50) IU/L Alkaline Phosphatase 61 (38-126) U/L Lactate Dehydrogenase 993 H (313-618) U/L Total Creatine Kinase 124 (55-170) U/L CK-MB (CK-2) 0.34 (<2.37) ng/mL CK-MB (CK-2) Rel Index 0.3 L (1.5-5.0) % Troponin I < 0.012 (0.01-0.034) ng/mL C-Reactive Protein 3.9 H (<1.0) mg/dL NT-Pro-B Natriuret Pep 69 (<450) pg/mL Total Protein 7.4 (6.3-8.2) g/dL Albumin 3.9 (3.5-5.0) g/dL Globulin 3.5 (1.7-4.1) g/dL Albumin/Globulin Ratio 1.1 (1.0-2.8) Procalcitonin (<0.5) ng/mL Chlamy pneumoniae PCR (Not Detect) Adenovirus (PCR) (Not Detect) B.parapertussis DNA PCR (Not Detect) Coronavirus OC43 (PCR) (Not Detect) Coronavirus HKU1 (PCR) (Not Detect) Coronavirus 229E (PCR) (Not Detect) SARS-CoV-2 (PCR) (Not Detecte) Coronavirus NL63 (PCR) (Not Detect) Human Metapneumovir PCR (Not Detect) Influenza Type A (PCR) (Not Detect) Influenza Type B (PCR) (Not Detect) M. pneumoniae (PCR) (Not Detect) Parainfluenza 1 (PCR) (Not Detect) Parainfluenza 2 (PCR) (Not Detect) Parainfluenza 3 (PCR) (Not Detect) Parainfluenza 4 (PCR) (Not Detect) RSV (PCR) (Not Detect) Entero/Rhino (PCR) (Not Detect) 03/03/20 03/03/20 03/03/20 Range/Units 13:30 13:30 13:53 WBC (4.5-11.0) X10^3/uL RBC (4.5-5.9) X10^6/uL Hgb (13.5-17.5) g/dL Hct (41-53) % MCV (80-100) fL MCH (26-34) PG MCHC (30-36) % RDW (11.6-14.8) % Plt Count (150-400) X10^3/uL Neut % (Auto) (50-75) % Lymph % (Auto) (25-40) % Bethel % (Auto) (3-14) % Eos % (Auto) (2-4) % Baso % (Auto) (0-2) % Neut # (Auto) (8829-1290) /uL Lymph # (Auto) (3121-5618) /uL Bethel # (Auto) (0-900) /uL Eos # (Auto) (0-450) /uL Baso # (Auto) (0-100) /uL D-Dimer (<230) ng/mL ABG pH (7.35-7.45) ABG pCO2 (35-45) mmHg ABG pO2 (80-100) mmHg ABG HCO3 (22-26) mmol/L ABG Total CO2 (21-31) mmol/L ABG O2 Saturation (95-100) % ABG Base Excess (-2-2) mmol/L FiO2 Sodium (137-145) mmol/L Potassium (3.4-5.1) mmol/L Chloride (98-107) mmol/L Carbon Dioxide (22-32) mmol/L BUN (9-20) mg/dL Creatinine (0.66-1.25) mg/dL Estimated GFR (>60) mL/min BUN/Creatinine Ratio (6-22) Glucose (80-110) mg/dL Lactate 1.1 (0.7-2.1) mmol/L Calcium (8.4-10.2) mg/dL Ferritin (18-464) ng/mL Total Bilirubin (0.2-1.3) mg/dL AST (17-59) IU/L ALT (<50) IU/L Alkaline Phosphatase (38-126) U/L Lactate Dehydrogenase (313-618) U/L Total Creatine Kinase (55-170) U/L CK-MB (CK-2) (<2.37) ng/mL CK-MB (CK-2) Rel Index (1.5-5.0) % Troponin I (0.01-0.034) ng/mL C-Reactive Protein (<1.0) mg/dL NT-Pro-B Natriuret Pep (<450) pg/mL Total Protein (6.3-8.2) g/dL Albumin (3.5-5.0) g/dL Globulin (1.7-4.1) g/dL Albumin/Globulin Ratio (1.0-2.8) Procalcitonin 0.08 (<0.5) ng/mL Chlamy pneumoniae PCR Not detected (Not Detect) Adenovirus (PCR) Not detected (Not Detect) B.parapertussis DNA PCR Not detected (Not Detect) Coronavirus OC43 (PCR) Not detected (Not Detect) Coronavirus HKU1 (PCR) Not detected (Not Detect) Coronavirus 229E (PCR) Not detected (Not Detect) SARS-CoV-2 (PCR) Detected H (Not Detecte) Coronavirus NL63 (PCR) Not detected (Not Detect) Human Metapneumovir PCR Not detected (Not Detect) Influenza Type A (PCR) Not detected (Not Detect) Influenza Type B (PCR) Not detected (Not Detect) M. pneumoniae (PCR) Not detected (Not Detect) Parainfluenza 1 (PCR) Not detected (Not Detect) Parainfluenza 2 (PCR) Not detected (Not Detect) Parainfluenza 3 (PCR) Not detected (Not Detect) Parainfluenza 4 (PCR) Not detected (Not Detect) RSV (PCR) Not detected (Not Detect) Entero/Rhino (PCR) Not detected (Not Detect) 03/03/20 Range/Units 14:07 WBC (4.5-11.0) X10^3/uL RBC (4.5-5.9) X10^6/uL Hgb (13.5-17.5) g/dL Hct (41-53) % MCV (80-100) fL MCH (26-34) PG MCHC (30-36) % RDW (11.6-14.8) % Plt Count (150-400) X10^3/uL Neut % (Auto) (50-75) % Lymph % (Auto) (25-40) % Bethel % (Auto) (3-14) % Eos % (Auto) (2-4) % Baso % (Auto) (0-2) % Neut # (Auto) (2262-2547) /uL Lymph # (Auto) (3353-5450) /uL Bethel # (Auto) (0-900) /uL Eos # (Auto) (0-450) /uL Baso # (Auto) (0-100) /uL D-Dimer (<230) ng/mL ABG pH 7.42 (7.35-7.45) ABG pCO2 33.1 L (35-45) mmHg ABG pO2 108 H (80-100) mmHg ABG HCO3 22 (22-26) mmol/L ABG Total CO2 23 (21-31) mmol/L ABG O2 Saturation 98 (95-100) % ABG Base Excess -3.0 L (-2-2) mmol/L FiO2 32 Sodium (137-145) mmol/L Potassium (3.4-5.1) mmol/L Chloride (98-107) mmol/L Carbon Dioxide (22-32) mmol/L BUN (9-20) mg/dL Creatinine (0.66-1.25) mg/dL Estimated GFR (>60) mL/min BUN/Creatinine Ratio (6-22) Glucose (80-110) mg/dL Lactate (0.7-2.1) mmol/L Calcium (8.4-10.2) mg/dL Ferritin (18-464) ng/mL Total Bilirubin (0.2-1.3) mg/dL AST (17-59) IU/L ALT (<50) IU/L Alkaline Phosphatase (38-126) U/L Lactate Dehydrogenase (313-618) U/L Total Creatine Kinase (55-170) U/L CK-MB (CK-2) (<2.37) ng/mL CK-MB (CK-2) Rel Index (1.5-5.0) % Troponin I (0.01-0.034) ng/mL C-Reactive Protein (<1.0) mg/dL NT-Pro-B Natriuret Pep (<450) pg/mL Total Protein (6.3-8.2) g/dL Albumin (3.5-5.0) g/dL Globulin (1.7-4.1) g/dL Albumin/Globulin Ratio (1.0-2.8) Procalcitonin (<0.5) ng/mL Chlamy pneumoniae PCR (Not Detect) Adenovirus (PCR) (Not Detect) B.parapertussis DNA PCR (Not Detect) Coronavirus OC43 (PCR) (Not Detect) Coronavirus HKU1 (PCR) (Not Detect) Coronavirus 229E (PCR) (Not Detect) SARS-CoV-2 (PCR) (Not Detecte) Coronavirus NL63 (PCR) (Not Detect) Human Metapneumovir PCR (Not Detect) Influenza Type A (PCR) (Not Detect) Influenza Type B (PCR) (Not Detect) M. pneumoniae (PCR) (Not Detect) Parainfluenza 1 (PCR) (Not Detect) Parainfluenza 2 (PCR) (Not Detect) Parainfluenza 3 (PCR) (Not Detect) Parainfluenza 4 (PCR) (Not Detect) RSV (PCR) (Not Detect) Entero/Rhino (PCR) (Not Detect) Imaging Data Chest x-ray: Radiologist's Impression: [address] [id number] ReportSigned Patient: Everardo Matias LMR#: [id number]: [id number]:[id number]/Sex: 79 / MDate of Service: 03/03/20Loc: EDAccession Number: [id number] Procedure: XR chest 1V Ordering Provider: Cale Jimenez D.O. PROCEDURE: XR CHEST 1V INDICATIONS: Short of breath, COVID + TECHNIQUE: One view of the chest was acquired. COMPARISON: [facility], CR, XR CHEST 2V, 02/27/2020, 9:05. [facility], CR, XR CHEST 1V, 02/29/2020, 9:21. FINDINGS: Surgical changes and devices: None. Lungs and pleura: Mild patchy interstitial type infiltrates are seen, right worse than left. An incomplete inspiratory result is noted, causing a crowded appearance to the lung markings. No pneumothorax or significant pleural effusions are seen. Mediastinum: Mediastinal contours appear normal. Heart size is normal. Bones and chest wall: No suspicious bony lesions. Age-appropriate bony degenerative changes are seen. Overlying soft tissues appear unremarkable. IMPRESSION: Mild, patchy bilateral interstitial infiltrates are seen, which are consistent with the given clinical history of COVID pneumonia. Dictated by: Bogdan Davis M.D. on 03/03/2020 at 12:43 Approved by: Bogdan Davis M.D. on 03/03/2020 at 12:44 Discharge Plan Departure Patient Disposition: Admitted As Inpatient Clinical Impression: Pneumonia due to 2019 novel coronavirus Admit Date/Time: 03/03/20 15:06 Admit Provider: Mignon Bass
[2020-03-03] MEDS: DEXAMETHASONE 10 MG/ML VIAL 6 MG IV (13:31)
[2020-03-03] MEDS: REMDESIVIR 200 MG in SODIUM CHLORIDE 0.9% 210 ML 250 ML IV (13:48)
[2020-03-03 13:56] LABS: Add Manual Diff / Slide Review NO; Basophils Absolute Auto 0 /uL (0-100); Basophils Percent Auto 0.2 % (0-2); Eosinophils Absolute Auto 0 /uL (0-450); Hematocrit 43.1 % (41-53); Hemoglobin 14.7 g/dL (13.5-17.5); Lymphocytes Absolute Auto 1000 /uL (1100-4500); Lymphocytes Percent Auto 15.6 % (25-40); Mean Corpuscular Hemoglobin 28.3 PG (26-34); Mean Corpuscular Volume 83.1 fL (80-100); Monocytes Absolute Auto 700 /uL (0-900); Monocytes Percent Auto 10.6 % (3-14); Neutrophils Absolute Auto 4600 /uL (1500-7000); Neutrophils Percent Auto 73.6 % (50-75); Platelet Count 322 X10^3/uL (150-400); Red Blood Cell Count 5.18 X10^6/uL (4.5-5.9); Red Cell Distribution Width 14.8 % (11.6-14.8); White Blood Cell Count 6.2 X10^3/uL (4.5-11.0)
[2020-03-03 14:06] LABS: D Dimer 461 ng/mL (<230); HEMOLYSIS < 15 (0-50); Sodium 133 mmol/L (137-145)
[2020-03-03 14:09] LABS: Alanine Aminotransferase 45 IU/L (<50); Albumin 3.9 g/dL (3.5-5.0); Albumin Globulin Ratio 1.1 (1.0-2.8); Alkaline Phosphatase 61 U/L (38-126); Aspartate Aminotransferase 59 IU/L (17-59); BUN Creatinine Ratio 18.3 (6-22); Bilirubin Total 0.5 mg/dL (0.2-1.3); Blood Urea Nitrogen 19 mg/dL (9-20); C-Reactive Protein Quant 3.9 mg/dL (<1.0); Calcium 8.5 mg/dL (8.4-10.2); Carbon Dioxide 24 mmol/L (22-32); Chloride 101 mmol/L (98-107); Creatine Kinase 124 U/L (55-170); Estimated Glomerular Filt Rate > 60.0 mL/min (>60); Globulin 3.5 g/dL (1.7-4.1); Glucose 108 mg/dL (80-110); Lactate Dehydrogenase 993 U/L (313-618); Potassium 4.2 mmol/L (3.4-5.1); Total Protein 7.4 g/dL (6.3-8.2)
--- NOTE | 2020-03-03 14:09 | PC.NURSE ---
Patient comes to ED with who is also covid positive. Patient diagnosed with covid on 02/26. Since that time states has steadily gotten worse and home pulse oximeter reading 82% on RA for last 2 days. Patient appears visibily short of breath, with difficulty communicating after walking short distance into room. Patient 88% O2 on RA, placed on 3L nasal canula and improved to 96%.
[2020-03-03 14:19] LABS: NT-proBNP (BNP-Adult 18+) 69 pg/mL (<450); Troponin I < 0.012 ng/mL (0.01-0.034)
[2020-03-03 14:22] LABS: CKMB % Relative Index 0.3 % (1.5-5.0); Creatine Kinase MB 0.34 ng/mL (<2.37)
[2020-03-03] MEDS: ENOXAPARIN 40 MG/0.4 ML SYRINGE SUBCUT (14:23)
[2020-03-03 14:31] LABS: Fractionated Inspired Oxygen 32; HCO3 ABG 22 mmol/L (22-26); Oxygen Saturation ABG 98 % (95-100); PCO2 ABG 33.1 mmHg (35-45); PO2 ABG 108 mmHg (80-100); TCO2 ABG 23 mmol/L (21-31); pH ABG 7.42 (7.35-7.45)
[2020-03-03 14:37] LABS: Lactate (Lactic Acid) 1.1 mmol/L (0.7-2.1)
[2020-03-03 14:54] LABS: Adenovirus Not Detected (Not Detect)
[2020-03-03 14:55] LABS: Bordetella pertussis Not Detected (Not Detect); Chlamydophila pneumoniae Not Detected (Not Detect); Coronavirus 229E Not Detected (Not Detect); Coronavirus HKU1 Not Detected (Not Detect); Coronavirus NL 63 Not Detected (Not Detect); Coronavirus OC43 Not Detected (Not Detect); Human Metapneumovirus Not Detected (Not Detect); Human Rhinovirus/Enterovirus Not Detected (Not Detect); Influenza A Not Detected (Not Detect); Influenza B Not Detected (Not Detect); Mycoplasma pneumoniae Not Detected (Not Detect); Parainfluenza Virus 1 Not Detected (Not Detect); Parainfluenza Virus 2 Not Detected (Not Detect); Parainfluenza Virus 3 Not Detected (Not Detect); Parainfluenza Virus 4 Not Detected (Not Detect); Respiratory Syncytial Virus Not Detected (Not Detect); SARS- CoV-2 Detected (Not Detecte)
[2020-03-03 15:34] LABS: Procalcitonin 0.08 ng/mL (<0.5)
[2020-03-03 15:44] LABS: Ferritin 1090 ng/mL (18-464)
--- NOTE | 2020-03-03 17:29 | PM.HP.1 ---
History of Present Illness History of Present Illness Date Patient Seen: 03/03/20 Chief complaint: covid positive, trouble brathing, cough Narrative: The patient is a 79-year-old male with a history of hypertension hyperlipidemia and coronary disease who has known COVID-19 pneumonia. Patient initially presented to the emergency department on February 26. Patient has had COVID for 9 days. On the he was noted to be COVID positive. He was not hypoxic at that time. The patient reports he developed fatigue lightheadedness and near-syncope at home. He came into the hospital for evaluation then was sent home. On the both he and his home are all who is also COVID positive noted that his O2 sat was 90%. He presented back to the emergency department again for feelings of weakness and fatigue and was discharged back home. The patient reports he lost his sense of taste and smell several years ago. He has had no nausea. He has had intermittent fevers. He has been fatigued, he has had poor appetite, he has had a cough which has been nonproductive and fever. The patient has been short of breath and was noted to be hypoxic with O2 sats in the 80% range today. Given he has been to the emergency department 3 times in he has an to day 9 of his COVID diagnosis he is admitted to the hospital for treatment and evaluation. In the emergency department the patient received Decadron and remdesivir. He is admitted at the time for definitive treatment. Patient History Medical History Aortic root dilatation BPH w urinary obs/LUTS CAD (coronary artery disease) (~2014) Essential hypertension History of gout History of stroke Impaired fasting glucose Left ventricular hypertrophy due to hypertensive disease Leukocytosis Mild aortic stenosis Mixed hyperlipidemia Surgical History S/P appendectomy Status post primary angioplasty with coronary stent (02/16/15) Family & Social History Family History Mother Breast cancer genetic susceptibility Social History: household members spouse Prior Living Arrangements Apartment/Condo Safety & Behavioral: Feels Safe in Current Yes Environment Been Physically Hurt or No Threatened By a Person Suicidal Ideation Description None Suicide Plan Description No Plan Tobacco & Substance use: Smoking Status Never smoker alcohol intake frequency 0-2 drinks per day Substance Use Type does not use Meds Home Medications and Allergies Home Medications Medication Instructions Recorded Confirmed Type aspirin 81 mg tablet,delayed 81 mg PO DAILY 04/05/19 03/03/20 History release atorvastatin 20 mg tablet 20 mg PO DAILY 04/05/19 03/03/20 History lisinopril 10 mg tablet 10 mg PO DAILY 04/05/19 03/03/20 History metoprolol succinate 25 mg 25 mg PO DAILY 04/05/19 03/03/20 History tablet,extended release 24 hr Allergies Allergy/AdvReac Type Severity Reaction Status Date / Time No Known Drug Allergies Allergy Verified 03/03/20 13:23 Review of Systems Review of Systems ROS: Yes All systems reviewed with the patient and are negative except as otherwise documented Exam Vital Signs (past 8 hours): - 03/03/20 13:05 03/03/20 13:18 03/03/20 14:12 Temperature 99.0 F Pulse Rate 76 75 Respiratory Rate 32 H 22 Blood Pressure 155/76 H Pulse Oximetry 88 L 97 03/03/20 14:30 03/03/20 15:00 03/03/20 15:30 Temperature Pulse Rate 75 69 70 Respiratory Rate 18 16 21 Blood Pressure 137/72 129/65 136/65 Pulse Oximetry 95 95 93 Oxygen Delivery Method Room Air Oxygen Flow Rate 4 Narrative Exam Narrative: Pleasant gentleman lying in bed in no obvious distress HEENT: Normocephalic atraumatic, extraocular muscles are intact, oropharynx is clear with moist mucous membranes, neck is supple without adenopathy or thyromegaly Lungs: Decreased breath sounds with scattered rhonchi bilaterally Cardiac exam: Regular rate rhythm normal S1-S2 Abdomen: Soft nontender nondistended without hepatosplenomegaly Extremities: No edema Neuro exam: Nonfocal Skin exam: No lesion Psychiatric exam: Patient has no hallucinations no delusions or odd movements Objective Labs Result Diagrams: 03/03/20 13:30 03/03/20 13:30 Labs: Laboratory Results - last 24 hr 03/03/20 03/03/20 03/03/20 13:30 13:30 13:30 WBC 6.2 RBC 5.18 Hgb 14.7 Hct 43.1 MCV 83.1 MCH 28.3 MCHC 34.0 RDW 14.8 Plt Count 322 Neut % (Auto) 73.6 Lymph % (Auto) 15.6 L [place] % (Auto) 10.6 Eos % (Auto) 0.0 L Baso % (Auto) 0.2 Neut # (Auto) 4600 Lymph # (Auto) 1000 L [place] # (Auto) 700 Eos # (Auto) 0 Baso # (Auto) 0 D-Dimer 461 H ABG pH ABG pCO2 ABG pO2 ABG HCO3 ABG Total CO2 ABG O2 Saturation ABG Base Excess FiO2 Sodium 133 L Potassium 4.2 Chloride 101 Carbon Dioxide 24 BUN 19 Creatinine 1.04 Estimated GFR > 60.0 BUN/Creatinine Ratio 18.3 Glucose 108 Lactate Calcium 8.5 Ferritin 1090 H Total Bilirubin 0.5 AST 59 ALT 45 Alkaline Phosphatase 61 Lactate Dehydrogenase 993 H Total Creatine Kinase 124 CK-MB (CK-2) 0.34 CK-MB (CK-2) Rel Index 0.3 L Troponin I < 0.012 C-Reactive Protein 3.9 H NT-Pro-B Natriuret Pep 69 Total Protein 7.4 Albumin 3.9 Globulin 3.5 Albumin/Globulin Ratio 1.1 Procalcitonin Chlamy pneumoniae PCR Adenovirus (PCR) B.parapertussis DNA PCR Coronavirus OC43 (PCR) Coronavirus HKU1 (PCR) Coronavirus 229E (PCR) SARS-CoV-2 (PCR) Coronavirus NL63 (PCR) Human Metapneumovir PCR Influenza Type A (PCR) Influenza Type B (PCR) M. pneumoniae (PCR) Parainfluenza 1 (PCR) Parainfluenza 2 (PCR) Parainfluenza 3 (PCR) Parainfluenza 4 (PCR) RSV (PCR) Entero/Rhino (PCR) 03/03/20 03/03/20 03/03/20 13:30 13:30 13:53 WBC RBC Hgb Hct MCV MCH MCHC RDW Plt Count Neut % (Auto) Lymph % (Auto) [place] % (Auto) Eos % (Auto) Baso % (Auto) Neut # (Auto) Lymph # (Auto) [place] # (Auto) Eos # (Auto) Baso # (Auto) D-Dimer ABG pH ABG pCO2 ABG pO2 ABG HCO3 ABG Total CO2 ABG O2 Saturation ABG Base Excess FiO2 Sodium Potassium Chloride Carbon Dioxide BUN Creatinine Estimated GFR BUN/Creatinine Ratio Glucose Lactate 1.1 Calcium Ferritin Total Bilirubin AST ALT Alkaline Phosphatase Lactate Dehydrogenase Total Creatine Kinase CK-MB (CK-2) CK-MB (CK-2) Rel Index Troponin I C-Reactive Protein NT-Pro-B Natriuret Pep Total Protein Albumin Globulin Albumin/Globulin Ratio Procalcitonin 0.08 Chlamy pneumoniae PCR Not detected Adenovirus (PCR) Not detected B.parapertussis DNA PCR Not detected Coronavirus OC43 (PCR) Not detected Coronavirus HKU1 (PCR) Not detected Coronavirus 229E (PCR) Not detected SARS-CoV-2 (PCR) Detected H Coronavirus NL63 (PCR) Not detected Human Metapneumovir PCR Not detected Influenza Type A (PCR) Not detected Influenza Type B (PCR) Not detected M. pneumoniae (PCR) Not detected Parainfluenza 1 (PCR) Not detected Parainfluenza 2 (PCR) Not detected Parainfluenza 3 (PCR) Not detected Parainfluenza 4 (PCR) Not detected RSV (PCR) Not detected Entero/Rhino (PCR) Not detected 03/03/20 14:07 WBC RBC Hgb Hct MCV MCH MCHC RDW Plt Count Neut % (Auto) Lymph % (Auto) [place] % (Auto) Eos % (Auto) Baso % (Auto) Neut # (Auto) Lymph # (Auto) [place] # (Auto) Eos # (Auto) Baso # (Auto) D-Dimer ABG pH 7.42 ABG pCO2 33.1 L ABG pO2 108 H ABG HCO3 22 ABG Total CO2 23 ABG O2 Saturation 98 ABG Base Excess -3.0 L FiO2 32 Sodium Potassium Chloride Carbon Dioxide BUN Creatinine Estimated GFR BUN/Creatinine Ratio Glucose Lactate Calcium Ferritin Total Bilirubin AST ALT Alkaline Phosphatase Lactate Dehydrogenase Total Creatine Kinase CK-MB (CK-2) CK-MB (CK-2) Rel Index Troponin I C-Reactive Protein NT-Pro-B Natriuret Pep Total Protein Albumin Globulin Albumin/Globulin Ratio Procalcitonin Chlamy pneumoniae PCR Adenovirus (PCR) B.parapertussis DNA PCR Coronavirus OC43 (PCR) Coronavirus HKU1 (PCR) Coronavirus 229E (PCR) SARS-CoV-2 (PCR) Coronavirus NL63 (PCR) Human Metapneumovir PCR Influenza Type A (PCR) Influenza Type B (PCR) M. pneumoniae (PCR) Parainfluenza 1 (PCR) Parainfluenza 2 (PCR) Parainfluenza 3 (PCR) Parainfluenza 4 (PCR) RSV (PCR) Entero/Rhino (PCR) Assessment & Plan Assessment & Plan narrative: Impression 1. 79-year-old male admitted to the hospital with acute hypoxic respiratory failure -patient diagnosed with COVID-19, 9 days ago -he is in the 2nd week of illness which corresponds to his worsening hypoxemia -will continue oxygen, remdesivir, and Decadron -would consider awake pronating if the patient develops progressive hypoxemia -patient will be placed on standard DVT prophylaxis -chest x-ray confirms bilateral alveolar infiltrate 2. Coronary artery disease -continue aspirin, metoprolol and atorvastatin -remote history of stent placement -no active ischemia at this time 3. Hypertension -continue lisinopril Patient is admitted as an inpatient for acute hypoxic respiratory failure, anticipate 3-5 day admission Patient is a full code will note that his record accordingly His also hospitalized is his surrogate demand decision maker
[2020-03-03] MEDS: lisinopriL 10 MG TABLET PO (20:26)
[2020-03-03] MEDS: DOCUSATE 100 MG CAPSULE PO (20:26)
[2020-03-03] MEDS: METOPROLOL ER 25 MG TABLET PO (20:27)
[2020-03-03] MEDS: ATORVASTATIN 20 MG TABLET PO (20:27)
[2020-03-03] MEDS: ASPIRIN EC 81 MG TABLET PO (20:27)
[2020-03-04] VITALS (11 sets, daily range): BP systolic 100–129; BP diastolic 52–77; PULSE 56–71; RESP 16–26; TEMP 36–36.6; O2SAT 90–97
[2020-03-04 05:43] LABS: Basophils Absolute Auto 0 /uL (0-100); Basophils Percent Auto 0.2 % (0-2); Eosinophils Absolute Auto 0 /uL (0-450); Hematocrit 42.8 % (41-53); Hemoglobin 14.2 g/dL (13.5-17.5); Lymphocytes Absolute Auto 700 /uL (1100-4500); Lymphocytes Percent Auto 13.6 % (25-40); Mean Corpuscular HGB Conc 33.2 % (30-36); Mean Corpuscular Hemoglobin 27.8 PG (26-34); Mean Corpuscular Volume 83.7 fL (80-100); Monocytes Absolute Auto 700 /uL (0-900); Neutrophils Absolute Auto 3700 /uL (1500-7000); Neutrophils Percent Auto 73.2 % (50-75); Platelet Count 353 X10^3/uL (150-400); Red Blood Cell Count 5.11 X10^6/uL (4.5-5.9); Red Cell Distribution Width 14.7 % (11.6-14.8); White Blood Cell Count 5.1 X10^3/uL (4.5-11.0)
[2020-03-04 05:44] LABS: Add Manual Diff / Slide Review SLIDE REVIEW
[2020-03-04 05:46] LABS: BUN Creatinine Ratio 26.3 (6-22); Blood Urea Nitrogen 21 mg/dL (9-20); Calcium 8.5 mg/dL (8.4-10.2); Carbon Dioxide 22 mmol/L (22-32); Chloride 104 mmol/L (98-107); Estimated Glomerular Filt Rate > 60.0 mL/min (>60); Glucose 152 mg/dL (80-110); HEMOLYSIS < 15 (0-50); Potassium 4.4 mmol/L (3.4-5.1); Sodium 133 mmol/L (137-145)
[2020-03-04 06:41] LABS: Anisocytosis 1+; Burr Cells 2+
[2020-03-04] MEDS: ENOXAPARIN 40 MG/0.4 ML SYRINGE SUBCUT (08:58)
[2020-03-04] MEDS: DOCUSATE 100 MG CAPSULE PO ×2 (08:59→20:36)
[2020-03-04] MEDS: DEXAMETHASONE 10 MG/ML VIAL 6 MG IV (08:59)
[2020-03-04] MEDS: lisinopriL 10 MG TABLET PO (08:59)
[2020-03-04] MEDS: METOPROLOL ER 25 MG TABLET PO (08:59)
[2020-03-04] MEDS: ASPIRIN EC 81 MG TABLET PO ×2 (08:59→20:36)
--- NOTE | 2020-03-04 10:07 | PC.NURSE ---
Addendum entered by Charles Hill R.N. 03/04/20 11:27: Patient declines offer again to get up to chair. Re enforced recommendation for self proning positioning along with right and left side laying rotations, patient able to move himself in bed independently but remains to sit upright in bed at this time. Call light and urinal within reach. Original Note: Patient sleeping this morning on his side. Awakened for morning medications and to try to eat breakfast. Says he slept well, and that his breathing is ok this morning. Continues on 5L NC at this time, respiratory therapy following. Patient encouraged to spend as much time as he can after breakfast laying on his stomach, and rotating on his sides. Urinal and call light within reach. Continue to monitor.
[2020-03-04] MEDS: REMDESIVIR 100 MG in SODIUM CHLORIDE 0.9% 230 ML 250 ML IV (13:11)
--- NOTE | 2020-03-04 17:42 | P.PN_ITS ---
Subjective Subjective Date Patient Seen: 03/04/20 Interval history: The patient is a 79-year-old male who was admitted to the hospital with COVID-19 pneumonia. He was diagnosed about 9 days ago. Patient was seen in the emergency room twice. It however he developed progressive hypoxemia and was admitted to the hospital. He has been started on remdesivir Decadron. He is maintaining his saturation are 93% on 5 L of oxygen. He has no specific complaints today. He seems to have lost his voice but otherwise has no nausea vomiting or diarrhea Exam Vital Signs (past 8 hours): - 03/04/20 13:00 03/04/20 16:50 03/04/20 17:26 Temperature 97.4 F L 97.8 F Pulse Rate 71 60 65 Respiratory Rate 22 22 23 Blood Pressure 101/55 L 109/55 L Pulse Oximetry 93 93 93 Oxygen Delivery Method Nasal Cannula Oxygen Flow Rate 5 Narrative Exam Narrative: Pleasant gentleman resting comfortably in no obvious distress Lungs: Decreased breath sounds with scattered crackles bilaterally Cardiac exam: Regular rate rhythm normal S1-S2 Abdomen soft and nontender Extremities: No edema Objective Labs Result Diagrams: 03/04/20 05:05 03/04/20 05:05 Labs: Laboratory Results - last 24 hr 03/04/20 03/04/20 05:05 05:05 WBC 5.1 RBC 5.11 Hgb 14.2 Hct 42.8 MCV 83.7 MCH 27.8 MCHC 33.2 RDW 14.7 Plt Count 353 Neut % (Auto) 73.2 Lymph % (Auto) 13.6 L [place] % (Auto) 13.0 Eos % (Auto) 0.0 L Baso % (Auto) 0.2 Neut # (Auto) 3700 Lymph # (Auto) 700 L [place] # (Auto) 700 Eos # (Auto) 0 Baso # (Auto) 0 RBC Morphology See below Anisocytosis 1+ H Flor Cells 2+ H Sodium 133 L Potassium 4.4 Chloride 104 Carbon Dioxide 22 BUN 21 H Creatinine 0.80 Estimated GFR > 60.0 BUN/Creatinine Ratio 26.3 H Glucose 152 H Calcium 8.5 PFSH Medical History Aortic root dilatation BPH w urinary obs/LUTS CAD (coronary artery disease) (~2014) Essential hypertension History of gout History of stroke Impaired fasting glucose Left ventricular hypertrophy due to hypertensive disease Leukocytosis Mild aortic stenosis Mixed hyperlipidemia Surgical History S/P appendectomy Status post primary angioplasty with coronary stent (02/16/15) Family History Mother Breast cancer genetic susceptibility Social History household members: spouse Smoking Status: Never smoker Assessment & Plan Assessment & Plan narrative: Impression 1. Acute hypoxic respiratory failure -patient is maintaining oxygenation on 5 L of O2 -chest x-ray confirms bilateral alveolar infiltrate -patient is a SARs COVID 2 positive -will continue Decadron and remdesivir for 5 days -will continue DVT prophylaxis -hopefully will be able to taper oxygen over the next day or so 2. Coronary disease -will continue aspirin, atorvastatin, and metoprolol 3. Hypertension -continue lisinopril
[2020-03-04] MEDS: guaiFENesin ER 600 MG TAB PO (20:36)
[2020-03-04] MEDS: ATORVASTATIN 20 MG TABLET PO (20:36)
[2020-03-04] MEDS: SODIUM CHLORIDE 0.9% FLUSH 10 ML IV (21:15)
[2020-03-05] VITALS (11 sets, daily range): BP systolic 98–139; BP diastolic 53–69; PULSE 54–80; RESP 15–31; TEMP 36–37.2; O2SAT 91–97
[2020-03-05 05:45] LABS: Add Manual Diff / Slide Review NO; Basophils Absolute Auto 0 /uL (0-100); Basophils Percent Auto 0.2 % (0-2); Eosinophils Absolute Auto 0 /uL (0-450); Hematocrit 41.6 % (41-53); Hemoglobin 13.9 g/dL (13.5-17.5); Lymphocytes Absolute Auto 900 /uL (1100-4500); Mean Corpuscular HGB Conc 33.3 % (30-36); Mean Corpuscular Hemoglobin 27.7 PG (26-34); Monocytes Absolute Auto 800 /uL (0-900); Monocytes Percent Auto 9.3 % (3-14); Neutrophils Absolute Auto 6800 /uL (1500-7000); Neutrophils Percent Auto 79.5 % (50-75); Platelet Count 424 X10^3/uL (150-400); Red Blood Cell Count 5.01 X10^6/uL (4.5-5.9); Red Cell Distribution Width 14.3 % (11.6-14.8); White Blood Cell Count 8.6 X10^3/uL (4.5-11.0)
[2020-03-05 05:54] LABS: BUN Creatinine Ratio 32.1 (6-22); Blood Urea Nitrogen 26 mg/dL (9-20); Calcium 8.4 mg/dL (8.4-10.2); Carbon Dioxide 22 mmol/L (22-32); Chloride 106 mmol/L (98-107); Estimated Glomerular Filt Rate > 60.0 mL/min (>60); Glucose 142 mg/dL (80-110); HEMOLYSIS < 15 (0-50); Potassium 4.7 mmol/L (3.4-5.1); Sodium 133 mmol/L (137-145)
--- NOTE | 2020-03-05 08:43 | CM.DANOTE ---
DCP/Brief Assessment: Reviewed chart. Patient admitted to [facility] on 03-03-2020 with COVID. PCP listed is Alba Haas. Primary payor is 1)Medicare 2)[employer]. CM team did not see patient in room due to COVID precautions. Per notes, patient is doing fairly well. Patient's spouse also hospitalized with COVID. Spoke with RN whom reports patient currently on 5 liters of 02 and ambulating in room. At this time d/c needs unknown. Patient resides with spouse in [place]. P: Anticipate home when stable. CM team to continue to follow closely. RITESH Proctor Discharge Planning/Care Management Advanced directive, confirm from FAMILY Start: 03/03/20 16:36 Freq: BID Status: Complete Protocol: Document 03/03/20 16:38 AK (Rec: 03/03/20 16:38 AK [id number]) Advance Directive, confirm on record Time 16:38 Person contacted Copy received No CM Discharge Assessment Start: 03/05/20 08:13 Freq: Status: Active Protocol: Document 03/05/20 08:13 KJS (Rec: 03/05/20 08:43 KJS [id number]) Discharge Planning Assessment Assigned Scrum Coach RITESH Proctor Contact Information Claudia Matias (spouse) ph# Advance Directives? Yes History Provided By Medical Record Prior Living Arrangements Apartment/Condo Household Members spouse Comment Patient currently COVID positive Discharge Plan Home Transportation Arrangement Family or self Whiteboard Updated in Patient Room with No name and ext. # of Scrum Coach Comment Patient COVID positive Review Status In Process Next Review Type Continued Stay Review
[2020-03-05] MEDS: guaiFENesin ER 600 MG TAB PO ×2 (08:52→20:25)
[2020-03-05] MEDS: SODIUM CHLORIDE 0.9% FLUSH 10 ML IV ×2 (08:52→20:27)
[2020-03-05] MEDS: DEXAMETHASONE 10 MG/ML VIAL 6 MG IV (08:52)
[2020-03-05] MEDS: DOCUSATE 100 MG CAPSULE PO ×2 (08:52→20:24)
[2020-03-05] MEDS: FAMOTIDINE 20 MG TABLET PO ×2 (08:52→20:25)
[2020-03-05] MEDS: ENOXAPARIN 40 MG/0.4 ML SYRINGE SUBCUT (08:52)
--- NOTE | 2020-03-05 12:41 | DIET.PN ---
Dietary Progress Note RD note: to support nutrition for Covid19 pneumonia kitchen sending ONS Ensure Max c lunch to support protein needs in low kcal/low CHO formula
[2020-03-05] MEDS: REMDESIVIR 100 MG in SODIUM CHLORIDE 0.9% 230 ML 250 ML IV (13:05)
--- NOTE | 2020-03-05 14:50 | PC.NURSE ---
Day Shift Note Pt remains in 5L NC, SpO2 90-91% when sitting up in chair and 94-95% when side-lying/proning. Instructed on need to prone and to cough and deep breathe. RT provided and instructed on acapella which is at bedside. Desaturated to 88% after walking to bathroom and back but recovered quickly. Call light within reach, using appropriately to make needs known.
--- NOTE | 2020-03-05 19:26 | P.PN_ITS ---
Subjective Subjective Date Patient Seen: 03/05/20 Time Patient Seen: 19:26 Interval history: The patient is a 79-year-old male who was admitted to the hospital with COVID-19 pneumonia. He is improving today. During my exam I was able to turn him down to 1 L of supplemental oxygen and he was saturating in the low 90s. He reports continued cough, although it is not very frequent. He denies any chest pain, shortness of breath, orthopnea, lower extremity edema, na usea, vomiting, abdominal pain, diarrhea. Exam Vital Signs (past 8 hours): - 03/05/20 12:00 03/05/20 14:20 03/05/20 16:00 Temperature 98.9 F 98.9 F Pulse Rate 62 65 Respiratory Rate 22 24 15 Blood Pressure 98/53 L 125/56 L Pulse Oximetry 93 92 91 Oxygen Delivery Method Nasal Cannula Oxygen Flow Rate 5 Narrative Exam Narrative: Gen: Pleasant gentleman resting comfortably in no obvious distress Lungs: Decreased breath sounds with scattered crackles bilaterally Cardiac exam: Regular rate rhythm normal S1-S2 Abdomen soft and nontender Extremities: No edema Objective Labs Result Diagrams: 03/05/20 05:05 03/05/20 05:05 Labs: Laboratory Results - last 24 hr 03/05/20 03/05/20 05:05 05:05 WBC 8.6 D RBC 5.01 Hgb 13.9 Hct 41.6 MCV 83.0 MCH 27.7 MCHC 33.3 RDW 14.3 Plt Count 424 H Neut % (Auto) 79.5 H Lymph % (Auto) 11.0 L [place] % (Auto) 9.3 Eos % (Auto) 0.0 L Baso % (Auto) 0.2 Neut # (Auto) 6800 Lymph # (Auto) 900 L [place] # (Auto) 800 Eos # (Auto) 0 Baso # (Auto) 0 Sodium 133 L Potassium 4.7 Chloride 106 Carbon Dioxide 22 BUN 26 H Creatinine 0.81 Estimated GFR > 60.0 BUN/Creatinine Ratio 32.1 H Glucose 142 H Calcium 8.4 PFSH Medical History Aortic root dilatation BPH w urinary obs/LUTS CAD (coronary artery disease) (~2014) Essential hypertension History of gout History of stroke Impaired fasting glucose Left ventricular hypertrophy due to hypertensive disease Leukocytosis Mild aortic stenosis Mixed hyperlipidemia Surgical History S/P appendectomy Status post primary angioplasty with coronary stent (02/16/15) Family History Mother Breast cancer genetic susceptibility Social History household members: spouse Smoking Status: Never smoker Assessment & Plan Assessment & Plan narrative: 1. Acute hypoxic respiratory failure -patient continues to improve with oxygenation today, able to decrease to 1 L NC on my exam. At most, required 5L supplemental O2. -chest x-ray confirms bilateral alveolar infiltrate -patient is a SARs COVID 2 positive -will continue Decadron and remdesivir for 5 days or as long as admitted. -will continue DVT prophylaxis -hopefully will be able to taper oxygen over the next day or so 2. Coronary disease -will continue aspirin, atorvastatin, and metoprolol 3. Hypertension -continue lisinopril Dispo: anticipate discharge home possibly as soon as tomorrow if he is no longer hypoxic. Will need to ambulate him as well. Code: Full
[2020-03-05] MEDS: ATORVASTATIN 20 MG TABLET PO (20:24)
[2020-03-05] MEDS: lisinopriL 10 MG TABLET PO (20:24)
[2020-03-05] MEDS: METOPROLOL ER 25 MG TABLET PO (20:25)
[2020-03-05] MEDS: ASPIRIN EC 81 MG TABLET PO (20:25)
--- NOTE | 2020-03-05 21:54 | PC.NURSE ---
shift note: Pt AAOx3 maintaining sats of 92%. refused to sit in chair for dinner. Encouraged to prone as much as possible but pt states he is not able to fully prone but able to turn side to side ok. VSS. Denies pain or discomfort.
[2020-03-06] VITALS (10 sets, daily range): BP systolic 108–132; BP diastolic 53–86; PULSE 55–93; RESP 16–28; TEMP 26.6–36.6; O2SAT 91–95
[2020-03-06] MEDS: FAMOTIDINE 20 MG TABLET PO ×2 (09:25→20:35)
[2020-03-06] MEDS: DEXAMETHASONE 10 MG/ML VIAL 6 MG IV (09:25)
[2020-03-06] MEDS: guaiFENesin ER 600 MG TAB PO ×2 (09:25→20:34)
[2020-03-06] MEDS: ENOXAPARIN 40 MG/0.4 ML SYRINGE SUBCUT (09:26)
[2020-03-06] MEDS: DOCUSATE 100 MG CAPSULE PO ×2 (09:26→20:34)
[2020-03-06] MEDS: SODIUM CHLORIDE 0.9% FLUSH 10 ML IV ×2 (09:26→20:35)
[2020-03-06] MEDS: REMDESIVIR 100 MG in SODIUM CHLORIDE 0.9% 230 ML 250 ML IV (13:06)
--- NOTE | 2020-03-06 17:16 | P.PN_ITS ---
Subjective Subjective Date Patient Seen: 03/06/20 Time Patient Seen: 14:30 Interval history: The patient is a 79-year-old male who was admitted to the hospital with COVID-19 pneumonia. He is improving today. During my exam I was able to turn him down to 1 L of supplemental oxygen and he was saturating in the low 90s. He reports continued cough, although it is not very frequent. He denies any chest pain, shortness of breath, orthopnea, lower extremity edema, na usea, vomiting, abdominal pain, diarrhea. Exam Vital Signs (past 8 hours): - 03/06/20 12:30 03/06/20 14:39 03/06/20 16:00 Temperature 97.7 F 79.9 F L Pulse Rate 77 77 69 Respiratory Rate 22 18 16 Blood Pressure 109/61 116/69 Pulse Oximetry 93 92 91 Oxygen Delivery Method Room Air Oxygen Flow Rate 2 Narrative Exam Narrative: Gen: Pleasant gentleman resting comfortably in no obvious distress Lungs: Decreased breath sounds with scattered crackles bilaterally Cardiac exam: Regular rate rhythm normal S1-S2 Abdomen soft and nontender Extremities: No edema Objective Labs Result Diagrams: 03/05/20 05:05 03/05/20 05:05 [facility] Medical History Aortic root dilatation BPH w urinary obs/LUTS CAD (coronary artery disease) (~2014) Essential hypertension History of gout History of stroke Impaired fasting glucose Left ventricular hypertrophy due to hypertensive disease Leukocytosis Mild aortic stenosis Mixed hyperlipidemia Surgical History S/P appendectomy Status post primary angioplasty with coronary stent (02/16/15) Family History Mother Breast cancer genetic susceptibility Social History household members: spouse Smoking Status: Never smoker Assessment & Plan Assessment & Plan narrative: 1. Acute hypoxic respiratory failure -patient continues to improve with oxygenation today, able to decrease to 1 L NC on my exam and has been stable on 1-2 L. At most he required 5L supplemental O2. -chest x-ray confirms bilateral alveolar infiltrate -patient is a SARs COVID 2 positive -will continue Decadron and remdesivir for 5 days or as long as admitted. -will continue DVT prophylaxis -hopefully will be able to taper oxygen over the next day or so. He did desaturate a bit more to the upper 80s when ambulating to the bathroom today. 2. Coronary disease -will continue aspirin, atorvastatin, and metoprolol 3. Hypertension -continue lisinopril Dispo: anticipate discharge home possibly as soon as tomorrow if he is no longer hypoxic. He is ambulating in his room without difficulty. Code: Full COVID-19 COVID-19 status: Positive
[2020-03-06] MEDS: ATORVASTATIN 20 MG TABLET PO (20:34)
[2020-03-06] MEDS: ASPIRIN EC 81 MG TABLET PO (20:34)
[2020-03-06] MEDS: lisinopriL 10 MG TABLET PO (20:35)
[2020-03-06] MEDS: METOPROLOL ER 25 MG TABLET PO (20:35)
--- NOTE | 2020-03-06 23:29 | PC.NURSE ---
No BM today. Patient refuses milk of mag or suppository. Maintains good appetite. Off o2 NC since beginning of shift, satting >90%. Using commode independently. No complaints of pain or nausea. Inspiratory wheeze heard but patient states his breathing feels just fine. Call light at bedside, able to make needs known.
[2020-03-07] VITALS (8 sets, daily range): BP systolic 99–111; BP diastolic 57–65; PULSE 54–70; RESP 16–21; TEMP 36.2–36.6; O2SAT 88–94
[2020-03-07] MEDS: DOCUSATE 100 MG CAPSULE PO (08:46)
[2020-03-07] MEDS: ENOXAPARIN 40 MG/0.4 ML SYRINGE SUBCUT (08:46)
[2020-03-07] MEDS: DEXAMETHASONE 10 MG/ML VIAL 6 MG IV (08:46)
[2020-03-07] MEDS: guaiFENesin ER 600 MG TAB PO (08:46)
[2020-03-07] MEDS: FAMOTIDINE 20 MG TABLET PO (08:46)
[2020-03-07] MEDS: SODIUM CHLORIDE 0.9% FLUSH 10 ML IV (08:47)
[2020-03-07] MEDS: REMDESIVIR 100 MG in SODIUM CHLORIDE 0.9% 230 ML 250 ML IV (13:10)
--- NOTE | 2020-03-07 16:17 | PM.DS.1 ---
History of Present Illness History of Present Illness Date Patient Seen: 03/07/20 Time Patient Seen: 16:17 Chief complaint: covid positive, trouble brathing, cough Narrative: As per Dr. Bass, The patient is a 79-year-old male with a history of hypertension hyperlipidemia and coronary disease who has known COVID-19 pneumonia. Patient initially presented to the emergency department on February 26. Patient has had COVID for 9 days. On the he was noted to be COVID positive. He was not hypoxic at that time. The patient reports he developed fatigue lightheadedness and near-syncope at home. He came into the hospital for evaluation then was sent home. On the both he and his home are all who is also COVID positive noted that his O2 sat was 90%. He presented back to the emergency department again for feelings of weakness and fatigue and was discharged back home. The patient reports he lost his sense of taste and smell several years ago. He has had no nausea. He has had intermittent fevers. He has been fatigued, he has had poor appetite, he has had a cough which has been nonproductive and fever. The patient has been short of breath and was noted to be hypoxic with O2 sats in the 80% range today. Given he has been to the emergency department 3 times in he has an to day 9 of his COVID diagnosis he is admitted to the hospital for treatment and evaluation. In the emergency department the patient received Decadron and remdesivir. He is admitted at the time for definitive treatment. Discharge Providers Provider Date of admission: 03/03/20 15:06 Discharge Date: 03/07/20 Primary care physician: Alba Haas MD Discharge provider: Navarro Em DO Summary Hospital Course Discharge Diagnosis: 1. Acute hypoxic respiratory failure 2. Pneumonia secondary to COVID-19, acute, present on admission 3. Coronary disease, chronic 4. Hypertension, chronic Hospital Course: Everardo Matias is a 79-year-old male with a history of hypertension and CAD who was admitted for acute hypoxic respiratory failure secondary to COVID-19. He required as much as 5 L of supplemental oxygen via nasal cannula. He was started on Decadron and remdesivir therapy. He improved slowly over the course of his admission, and when off of supplemental oxygen he was discharged home. No further changes to his home medications are recommended as an outpatient. Exam Vital Signs (past 8 hours): - 03/07/20 10:45 03/07/20 10:50 03/07/20 12:00 Temperature 97.9 F Pulse Rate 67 Respiratory Rate 16 Blood Pressure 110/61 Pulse Oximetry 94 94 91 03/07/20 13:36 Temperature Pulse Rate 70 Respiratory Rate 20 Blood Pressure Pulse Oximetry 91 Oxygen Delivery Method Room Air Oxygen Flow Rate 0 Narrative Exam Narrative: GENERAL APPEARANCE: Well developed, well nourished, in no acute distress. SKIN: Inspection of the skin reveals no rashes, ulcerations or petechiae. HEENT: Normocephalic atraumatic, extraocular muscles are intact, oropharynx is clear and mucous membranes are moist, neck is supple without adenopathy NECK: Supple and symmetric. There was no thyroid enlargement, and no tenderness, or masses were felt. CHEST: Normal AP diameter and normal contour without any kyphoscoliosis. LUNGS: Auscultation of the lungs revealed no wheezes, rhonchi, or rales. CARDIOVASCULAR: There was a regular rate and rhythm without any murmurs, gallops, rubs. Peripheral pulses were 2+ and symmetric. ABDOMEN: Soft and nontender with normal bowel sounds. No ascites was noted. MUSCULOSKELETAL: There was no tenderness or effusions noted. Muscle strength and tone were normal. EXTREMITIES: No cyanosis, clubbing or edema. NEUROLOGIC: Alert and oriented x 3. Normal affect. Gait was normal. Strength is +5/5 in the Upper Extremities and Lower Extremities Bilaterally. Objective Labs Result Diagrams: 03/05/20 05:05 03/05/20 05:05 [facility] Medical History Aortic root dilatation BPH w urinary obs/LUTS CAD (coronary artery disease) (~2014) Essential hypertension History of gout History of stroke Impaired fasting glucose Left ventricular hypertrophy due to hypertensive disease Leukocytosis Mild aortic stenosis Mixed hyperlipidemia Surgical History S/P appendectomy Status post primary angioplasty with coronary stent (02/16/15) Family History Mother Breast cancer genetic susceptibility Social History household members: spouse Smoking Status: Never smoker Discharge Plan Discharge Plan Patient Disposition: Home Provider Discharge Comment: You were admitted to the hospital with COVID 19. You improved with steroids and an antiviral and time. You were in the hospital for 5 days and received 5 days of therapy. You were able to be discharged without oxygen. Please try and schedule a follow up with your PCP, preferrably via telehealth. No medication changes are necessary. Please try and stay isolated at home for at least another 7 days, at least 14 after symptoms fully resolve. Discharge orders & Medications Prescriptions: Continued atorvastatin 20 mg tablet 20 mg PO DAILY RF: 0 lisinopril 10 mg tablet 10 mg PO DAILY RF: 0 metoprolol succinate [Toprol XL] 25 mg tablet extended release 24 hr 25 mg PO DAILY RF: 0 aspirin [Adult Low Dose Aspirin] 81 mg tablet,delayed release (DR/EC) 81 mg PO DAILY RF: 0 Follow up/Referrals: Alba Haas MD [Primary Care Provider] - Discharge Health Status Health Concerns: COVID 19 Diet/Activity/Treatments Diet: Diet as Tolerated Activity: As tolerated Visit Report/Discharge Packet Instructions: DI for Heart Failure, DI for Prescription Opioid Use Discharge Data Primary Care Provider: Alba Haas
== END 2020-03-07 16:58 | disposition home or self-care (01) | DRG 177 ==
LOC: ED 14:04 → AC 15:07 → ICU 15:38
PROVIDERS: Nurse Practitioner Adult Health; Admitting Provider Internal Medicine; Emergency Provider Emergency Medicine; PCP Internal Medicine; Referring Provider Emergency Medicine; Visit Provider Internal Medicine
DX: U07.1 COVID-19 (principal); J12.89 Other viral pneumonia; J96.01 Acute respiratory failure with hypoxia; I10 Essential (primary) hypertension; I25.10 Atherosclerotic heart disease of native coronary artery without angina pectoris; E78.2 Mixed hyperlipidemia
CPT/HCPCS: 36415; 36600; 71045; 80048; 80053; 82550; 82553; 82728; 82805; 83605; 83615; 83880; 84145; 84484; 85025; 85379; 86140; 87040; 87633; 93005; 94762; 96365; 96372; 96375; 99281; 99284; 99285; A9270; J1100; J1650

== ENCOUNTER 2020-03-14 09:20 | Emergency (ER) | payer MEDICARE, OTHER, SELFPAY ==
[2020-03-03 16:30] VITALS: BMI 28.1
[2020-03-14] VITALS (13 sets, daily range): BP systolic 94–125; BP diastolic 56–62; PULSE 59–83; RESP 18–29; TEMP 36.5; O2SAT 90–97
--- NOTE | 2020-03-14 09:30 | DI.RAD.S_ITS ---
PROCEDURE: XR CHEST 1V INDICATIONS: right sided chest pain, COVID + TECHNIQUE: One view of the chest was acquired. COMPARISON: [facility], CR, XR CHEST 1V, 03/03/2020, 13:11. [facility], CR, XR CHEST 1V, 02/29/2020, 9:21. FINDINGS: Surgical changes and devices: None. Lungs and pleura: Lungs are abnormal, with patchy bilateral pneumonia consistent with the stated clinical history of atypical/viral pneumonia.. No pleural effusions or pneumothorax. Mediastinum: Mediastinal contours appear normal. Heart size is normal. Bones and chest wall: No suspicious bony lesions. Overlying soft tissues appear unremarkable. IMPRESSION: The pattern of bilateral pneumonia has mildly worsened from the comparison study by plain film by 03/03/20 and 02/29/20. The appearance is consistent with atypical/viral pneumonia worsening. Dictated by: Aron Ruano M.D. on 03/14/2020 at 10:30 Approved by: Aron Ruano M.D. on 03/14/2020 at 10:31
--- NOTE | 2020-03-14 09:42 | ED.CHESTPAIN ---
HPI - Chest Pain General Chief Complaint: Chest Pain Stated Complaint: Chest pain x3 days, COVID + Time Seen by Provider: 03/14/20 09:27 Source: patient, EMS and old records reviewed Mode of arrival: EMS Limitations: no limitations History of Present Illness HPI narrative: Patient is a 79-year-old male with history of coronary artery disease hypertension hyperlipidemia and recent diagnosis a COVID. He was diagnosed on February 26, symptoms started on February 23 he was finally hospitalized on March 03 in the ICU until March. Today he is presenting with 3 days of right-sided chest pain. It hurts whenever he takes a deep breath and he does feel some shortness of breath. He says his shortness of breath is definitely worse with activity is been ongoing since all of this started. The pain really seems to be worse though. He has lost his voice due to COVID. He has not had any fever or chills. Since both he and his got home from the hospital he has been doing well until 3 days ago. MD complaint: chest pain Onset (ago): day(s) (3) Duration: constant Pain location: right chest Quality: sharp Relieving factors: nothing Exacerbating factors: inspiration Related Data Home Medications Medication Instructions Recorded Confirmed aspirin 81 mg tablet,delayed 81 mg PO DAILY 04/05/19 03/03/20 release atorvastatin 20 mg tablet 20 mg PO DAILY 04/05/19 03/03/20 lisinopril 10 mg tablet 10 mg PO DAILY 04/05/19 03/03/20 metoprolol succinate 25 mg 25 mg PO DAILY 04/05/19 03/03/20 tablet,extended release 24 hr Previous Rx's Medication Instructions Recorded doxycycline hyclate 100 mg PO BID #14 cap 03/14/20 Allergies Allergy/AdvReac Type Severity Reaction Status Date / Time No Known Drug Allergies Allergy Verified 03/03/20 13:23 Review of Systems Review of Systems ROS Unobtainable: All systems reviewed & are unremarkable except as noted in HPI and below Constitutional Constitutional: Denies chills, Denies fever(s), Reports lethargy and Denies weakness ENT Ears, Nose, Mouth, and Throat: Reports change in voice and Denies neck pain Cardiovascular Cardiovascular: Reports dyspnea and Denies dyspnea on exertion Respiratory Respiratory: Denies cough, Reports dyspnea, Denies dyspnea on exertion and Denies wheezing Musculoskeletal Musculoskeletal: Denies back pain and Denies neck pain Integumentary/Breasts Skin/Breast: Denies pruritus, Denies erythema, Denies rash and Denies wounds Neurologic Neurologic: Denies weakness Allergic/Immunologic Allergic/Immunologic: Denies wheezing Patient History Medical History Aortic root dilatation BPH w urinary obs/LUTS CAD (coronary artery disease) (~2014) Essential hypertension History of gout History of stroke Impaired fasting glucose Left ventricular hypertrophy due to hypertensive disease Leukocytosis Mild aortic stenosis Mixed hyperlipidemia Surgical History S/P appendectomy Status post primary angioplasty with coronary stent (02/16/15) Family History Mother Breast cancer genetic susceptibility Social History household members: spouse Smoking Status: Never smoker Smoking Status: Never smoker alcohol intake frequency: 0-2 drinks per day Substance Use Type: does not use Exam Initial Vital Signs Initial Vital Signs: Vital Signs Pulse Rate 72 03/14/20 09:25 Respiratory Rate 25 H 03/14/20 09:25 Pulse Oximetry 93 03/14/20 09:25 GENERAL: Alert pleasant male and in [no acute] distress. HEENT: Head atraumatic,EOMI, pupils reactive, face symmetric, hoarse voice no drooling CARDIOVASCULAR: Regular rate and rhythm without murmurs, rubs or gallops. RESPIRATORY: Breath sounds equal bilaterally, no wheezes rales or rhonchi. Pain is not reproducible to palpation on the right side ABDOMEN: Soft, nontender. Normoactive bowel sounds all 4 quadrants. No guarding or rebound. : No CVA tenderness EXTREMITIES: Normal range of motion, no clubbing or edema. Neurovascularly intact NEUROLOGICAL: Alert and oriented x4.Normal gait and speech. Cranial nerves II through XII grossly intact. SKIN: Warm, dry, no laceration, no petechiae, no rashes or lesions. Scores GCS [place] coma scale eye opening: Spontaneous [place] coma scale verbal response: Orientated [place] coma scale motor response: Obey commands [place] coma scale total score: 15 Course Orders Ordered: ED Orders 03/14/20 11:33 Procalcitonin Stat Discontinued Medications Sodium Chloride (Normal Saline 0.9%) 1,000 mls @ 150 mls/hr IV CONT NICKI Last Admin: 03/14/20 09:49 Dose: 150 mls/hr Documented by: RACHEL Morphine Sulfate (Morphine 4 Mg/Ml Inj) 4 mg IV NOW ONE Stop: 03/14/20 09:56 Last Admin: 03/14/20 09:57 Dose: 4 mg Documented by: MAHESH Ondansetron HCl (Ondansetron 4 Mg/2 Ml Inj) 4 mg IV NOW ONE Stop: 03/14/20 09:56 Last Admin: 03/14/20 09:57 Dose: 4 mg Documented by: MAHESH Vital Signs Vital signs: Vital Signs - 8 hr 03/14/20 11:30 03/14/20 12:00 03/14/20 12:12 Pulse Rate 59 L 63 65 Respiratory Rate 25 H 29 H Blood Pressure 125/60 Pulse Oximetry 96 92 90 L 03/14/20 12:14 03/14/20 12:30 Pulse Rate 83 61 Respiratory Rate 18 25 H Blood Pressure 105/60 Pulse Oximetry 91 93 MDM - Chest Pain Lab Data Attestation: I reviewed the patient's lab results. Result diagrams: 03/14/20 09:40 03/14/20 09:40 Labs: Lab Results 03/14/20 03/14/20 03/14/20 Range/Units 09:40 09:40 09:40 WBC 12.9 H (4.5-11.0) X10^3/uL RBC 4.96 (4.5-5.9) X10^6/uL Hgb 13.8 (13.5-17.5) g/dL Hct 41.7 (41-53) % MCV 84.1 (80-100) fL MCH 27.8 (26-34) PG MCHC 33.1 (30-36) % RDW 14.1 (11.6-14.8) % Plt Count 495 H (150-400) X10^3/uL Neut % (Auto) 77.4 H (50-75) % Lymph % (Auto) 10.5 L (25-40) % Moore % (Auto) 10.9 (3-14) % Eos % (Auto) 0.7 L (2-4) % Baso % (Auto) 0.5 (0-2) % Neut # (Auto) 02811 H (9419-9475) /uL Lymph # (Auto) 1400 (9948-3980) /uL Moore # (Auto) 1400 H (0-900) /uL Eos # (Auto) 100 (0-450) /uL Baso # (Auto) 100 (0-100) /uL PT 13.0 H (10.1-12.7) SECONDS INR 1.1 (0.9-1.3) APTT 34 (26.4-36.2) SECONDS Sodium 131 L (137-145) mmol/L Potassium 4.7 (3.4-5.1) mmol/L Chloride 104 (98-107) mmol/L Carbon Dioxide 23 (22-32) mmol/L BUN 18 (9-20) mg/dL Creatinine 0.95 (0.66-1.25) mg/dL Estimated GFR > 60.0 (>60) mL/min BUN/Creatinine Ratio 18.9 (6-22) Glucose 110 (80-110) mg/dL Calcium 8.2 L (8.4-10.2) mg/dL Total Bilirubin 0.4 (0.2-1.3) mg/dL AST 25 (17-59) IU/L ALT 32 (<50) IU/L Alkaline Phosphatase 68 (38-126) U/L Total Creatine Kinase 29 L (55-170) U/L CK-MB (CK-2) TNP CK-MB (CK-2) Rel Index TNP Troponin I < 0.012 (0.01-0.034) ng/mL NT-Pro-B Natriuret Pep 45 (<450) pg/mL Total Protein 6.6 (6.3-8.2) g/dL Albumin 3.4 L (3.5-5.0) g/dL Globulin 3.2 (1.7-4.1) g/dL Albumin/Globulin Ratio 1.1 (1.0-2.8) Lipase 278 (23-300) U/L Procalcitonin (<0.5) ng/mL 03/14/20 Range/Units 11:33 WBC (4.5-11.0) X10^3/uL RBC (4.5-5.9) X10^6/uL Hgb (13.5-17.5) g/dL Hct (41-53) % MCV (80-100) fL MCH (26-34) PG MCHC (30-36) % RDW (11.6-14.8) % Plt Count (150-400) X10^3/uL Neut % (Auto) (50-75) % Lymph % (Auto) (25-40) % Moore % (Auto) (3-14) % Eos % (Auto) (2-4) % Baso % (Auto) (0-2) % Neut # (Auto) (8697-7796) /uL Lymph # (Auto) (2432-8907) /uL Moore # (Auto) (0-900) /uL Eos # (Auto) (0-450) /uL Baso # (Auto) (0-100) /uL PT (10.1-12.7) SECONDS INR (0.9-1.3) APTT (26.4-36.2) SECONDS Sodium (137-145) mmol/L Potassium (3.4-5.1) mmol/L Chloride (98-107) mmol/L Carbon Dioxide (22-32) mmol/L BUN (9-20) mg/dL Creatinine (0.66-1.25) mg/dL Estimated GFR (>60) mL/min BUN/Creatinine Ratio (6-22) Glucose (80-110) mg/dL Calcium (8.4-10.2) mg/dL Total Bilirubin (0.2-1.3) mg/dL AST (17-59) IU/L ALT (<50) IU/L Alkaline Phosphatase (38-126) U/L Total Creatine Kinase (55-170) U/L CK-MB (CK-2) CK-MB (CK-2) Rel Index Troponin I (0.01-0.034) ng/mL NT-Pro-B Natriuret Pep (<450) pg/mL Total Protein (6.3-8.2) g/dL Albumin (3.5-5.0) g/dL Globulin (1.7-4.1) g/dL Albumin/Globulin Ratio (1.0-2.8) Lipase (23-300) U/L Procalcitonin < 0.05 (<0.5) ng/mL Imaging Data Chest x-ray: Radiologist's Impression: PROCEDURE: XR CHEST 1V INDICATIONS: right sided chest pain, COVID + TECHNIQUE: One view of the chest was acquired. COMPARISON: [facility]erged with [facility], XR CHEST 1V, 03/03/2020, 13:11. Merged with [facility], XR CHEST 1V, 02/29/2020, 9:21. FINDINGS: Surgical changes and devices: None. Lungs and pleura: Lungs are abnormal, with patchy bilateral pneumonia consistent with the stated clinical history of atypical/viral pneumonia.. No pleural effusions or pneumothorax. Mediastinum: Mediastinal contours appear normal. Heart size is normal. Bones and chest wall: No suspicious bony lesions. Overlying soft tissues appear unremarkable. IMPRESSION: The pattern of bilateral pneumonia has mildly worsened from the comparison study by plain film by 03/03/20 and 02/29/20. The appearance is consistent with atypical/viral pneumonia worsening. Dictated by: Aron Ruano M.D. on 03/14/2020 at 10:30 CT scan - chest: Radiologist's Impression: PROCEDURE: CT ANGIO CHEST PE PROTOCOL INDICATIONS: right sided pain + SOB covid 02/23 TECHNIQUE: After the administration of intravenous contrast, 2 mm thick sections acquired from the pulmonary apices to the posterior costophrenic angles. 3-dimensional maximum intensity projection (MIP) coronal and sagittal reformats were then acquired through the thorax. For radiation dose reduction, the following was used: automated exposure control, adjustment of mA and/or kV according to patient size. COMPARISON: [facility]erged with [facility], XR CHEST 1V, 03/03/2020, 13:11. Merged with [facility], XR CHEST 1V, 03/14/2020, 9:36. FINDINGS: Image quality: Excellent. Pulmonary arteries: Pulmonary arteries are normal in size, and demonstrate no intraluminal filling defects to suggest central pulmonary embolism. Lungs and pleura: Bilateral near confluent peripheral airspace opacities consistent with pneumonia. No pleural effusions or pneumothorax. Central and peripheral airways are patent. Mediastinum: Heart size is normal, without pericardial effusion. Mild mediastinal or hilar adenopathy. For example, there is a 1.2 by 1.7 cm paratracheal lymph node. A 1 cm right hilar lymph node is identified. The ascending aorta is mildly aneurysmal measuring 4.5 x 4.8 cm, tapering to 3.5 cm in the proximal aortic arch and 2.8 cm in the distal aortic arch. Esophagus is normal in caliber. Small hiatal hernia. Bones and chest wall: No suspicious bony lesions. Ribs and thoracic spine appear intact throughout. There may be left thyroid nodule in the inferior pole of the left thyroid lobe. No axillary or supraclavicular adenopathy. Abdomen: Visualized upper abdominal solid organs appear normal in the early arterial phase of enhancement. IMPRESSION: 1. No evidence for pulmonary embolism. 2. Bilateral near confluent peripheral airspace opacities consistent with atypical pneumonia. 3. Mild mediastinal and bilateral hilar lymphadenopathy, most likely reactive. 4. Mild ascending thoracic aortic aneurysm. 5. Possible nodule in the inferior pole of the left thyroid lobe. Thyroid ultrasound suggested for follow-up. Dictated by: Joel Escobar M.D. on 03/14/2020 at 11:01 ECG Data Attestation: I personally reviewed and interpreted this ECG as follows: Prior ECG tracings: available for review Interpretation: 70 p.r. interval 1 7 QRS [address] changes Q-wave noted in lead 3 similar to previous MDM Narrative Medical decision making narrative: Patient has been having ongoing right-sided chest pain worse with inspiration is for 3 days with recent COVID infection. He now has leukocytosis of 12 and pneumonia on x-ray. The head his O2 is low at about 91-95% both with exertion and at rest. PE study is negative. At this time will treat with antibiotics, possible co infection. He overall appears well and not septic. His pain was relieved with morphine. Discharge Plan Departure Patient Disposition: Home Clinical Impression: Pneumonia due to 2019 novel coronavirus Instructions: DI for Pneumonia -- Adult Activity Restrictions/Additional Instructions: *You have been diagnosed with pneumonia *What to do: At this time your chest pain is likely from pneumonia. I think he will improve with antibiotics. Your oxygen level is just above 90%. Please continue to monitor very closely. If you are experiencing increased shortness of breath or cough *Continue to take medications as directed Doxycycline 100 mg twice a day for 7 days--> sent to [facility] and in [place] *Follow up with your primary care provider in 2-3 days *Return to ER if you should have increasing shortness of breath, body aches, fever, increasing pain or any new, worsening or concerning symptoms Prescriptions: New doxycycline hyclate 100 mg capsule 100 mg PO BID Qty: 14 RF: 0 No Action atorvastatin 20 mg tablet 20 mg PO DAILY RF: 0 lisinopril 10 mg tablet 10 mg PO DAILY RF: 0 metoprolol succinate [Toprol XL] 25 mg tablet extended release 24 hr 25 mg PO DAILY RF: 0 aspirin [Adult Low Dose Aspirin] 81 mg tablet,delayed release (DR/EC) 81 mg PO DAILY RF: 0 Referrals: Alicia Huitron ARNP [Primary Care Provider] -
[2020-03-14] MEDS: SODIUM CHLORIDE 0.9% 1,000 ML 150 ML IV (09:49)
[2020-03-14 09:50] LABS: Add Manual Diff / Slide Review NO; Basophils Absolute Auto 100 /uL (0-100); Basophils Percent Auto 0.5 % (0-2); Eosinophils Absolute Auto 100 /uL (0-450); Eosinophils Percent Auto 0.7 % (2-4); Hematocrit 41.7 % (41-53); Hemoglobin 13.8 g/dL (13.5-17.5); Lymphocytes Absolute Auto 1400 /uL (1100-4500); Lymphocytes Percent Auto 10.5 % (25-40); Mean Corpuscular HGB Conc 33.1 % (30-36); Mean Corpuscular Hemoglobin 27.8 PG (26-34); Mean Corpuscular Volume 84.1 fL (80-100); Monocytes Absolute Auto 1400 /uL (0-900); Monocytes Percent Auto 10.9 % (3-14); Neutrophils Absolute Auto 10000 /uL (1500-7000); Neutrophils Percent Auto 77.4 % (50-75); Platelet Count 495 X10^3/uL (150-400); Red Blood Cell Count 4.96 X10^6/uL (4.5-5.9); Red Cell Distribution Width 14.1 % (11.6-14.8); White Blood Cell Count 12.9 X10^3/uL (4.5-11.0)
--- NOTE | 2020-03-14 09:52 | DI.CT.S_ITS ---
PROCEDURE: CT ANGIO CHEST PE PROTOCOL INDICATIONS: right sided pain + SOB covid 02/23 TECHNIQUE: After the administration of intravenous contrast, 2 mm thick sections acquired from the pulmonary apices to the posterior costophrenic angles. 3-dimensional maximum intensity projection (MIP) coronal and sagittal reformats were then acquired through the thorax. For radiation dose reduction, the following was used: automated exposure control, adjustment of mA and/or kV according to patient size. COMPARISON: [facility], CR, XR CHEST 1V, 03/03/2020, 13:11. [facility], CR, XR CHEST 1V, 03/14/2020, 9:36. FINDINGS: Image quality: Excellent. Pulmonary arteries: Pulmonary arteries are normal in size, and demonstrate no intraluminal filling defects to suggest central pulmonary embolism. Lungs and pleura: Bilateral near confluent peripheral airspace opacities consistent with pneumonia. No pleural effusions or pneumothorax. Central and peripheral airways are patent. Mediastinum: Heart size is normal, without pericardial effusion. Mild mediastinal or hilar adenopathy. For example, there is a 1.2 by 1.7 cm paratracheal lymph node. A 1 cm right hilar lymph node is identified. The ascending aorta is mildly aneurysmal measuring 4.5 x 4.8 cm, tapering to 3.5 cm in the proximal aortic arch and 2.8 cm in the distal aortic arch. Esophagus is normal in caliber. Small hiatal hernia. Bones and chest wall: No suspicious bony lesions. Ribs and thoracic spine appear intact throughout. There may be left thyroid nodule in the inferior pole of the left thyroid lobe. No axillary or supraclavicular adenopathy. Abdomen: Visualized upper abdominal solid organs appear normal in the early arterial phase of enhancement. IMPRESSION: 1. No evidence for pulmonary embolism. 2. Bilateral near confluent peripheral airspace opacities consistent with atypical pneumonia. 3. Mild mediastinal and bilateral hilar lymphadenopathy, most likely reactive. 4. Mild ascending thoracic aortic aneurysm. 5. Possible nodule in the inferior pole of the left thyroid lobe. Thyroid ultrasound suggested for follow-up. Dictated by: Joel Escobar M.D. on 03/14/2020 at 11:01 Approved by: Joel Escobar M.D. on 03/14/2020 at 11:09
[2020-03-14 09:56] LABS: INR 1.1 (0.9-1.3)
[2020-03-14] MEDS: MORPHINE 4 MG/ML INJ IV (09:57)
[2020-03-14] MEDS: ONDANSETRON 4 MG/2 ML INJ IV (09:57)
[2020-03-14 09:59] LABS: PTT Partial Thromboplastin Tim 34 SECONDS (26.4-36.2)
[2020-03-14 10:01] LABS: Alanine Aminotransferase 32 IU/L (<50); Albumin 3.4 g/dL (3.5-5.0); Albumin Globulin Ratio 1.1 (1.0-2.8); Alkaline Phosphatase 68 U/L (38-126); Aspartate Aminotransferase 25 IU/L (17-59); BUN Creatinine Ratio 18.9 (6-22); Bilirubin Total 0.4 mg/dL (0.2-1.3); Blood Urea Nitrogen 18 mg/dL (9-20); Calcium 8.2 mg/dL (8.4-10.2); Carbon Dioxide 23 mmol/L (22-32); Chloride 104 mmol/L (98-107); Creatine Kinase 29 U/L (55-170); Estimated Glomerular Filt Rate > 60.0 mL/min (>60); Globulin 3.2 g/dL (1.7-4.1); Glucose 110 mg/dL (80-110); HEMOLYSIS < 15 (0-50); Lipase 278 U/L (23-300); Potassium 4.7 mmol/L (3.4-5.1); Sodium 131 mmol/L (137-145); Total Protein 6.6 g/dL (6.3-8.2)
[2020-03-14 10:13] LABS: NT-proBNP (BNP-Adult 18+) 45 pg/mL (<450); Troponin I < 0.012 ng/mL (0.01-0.034)
[2020-03-14 12:03] LABS: Procalcitonin < 0.05 ng/mL (<0.5)
--- NOTE | 2020-03-22 11:41 | PC.NURSE ---
IV stop time of NS at 1300
== END 2020-03-14 13:02 | disposition home or self-care (01) ==
PROVIDERS: Emergency Provider Emergency Medicine; PCP Nurse Practitioner Family
DX: J12.82 Pneumonia due to coronavirus disease 2019 (principal); R07.9 Chest pain, unspecified; I25.10 Atherosclerotic heart disease of native coronary artery without angina pectoris; I10 Essential (primary) hypertension; E78.5 Hyperlipidemia, unspecified
CPT/HCPCS: 36415; 71045; 71275; 80053; 82550; 83690; 83880; 84145; 84484; 85025; 85610; 85730; 93005; 93010; 96361; 96374; 96375; 99284; J2270; J2405; Q9967

== ENCOUNTER 2020-12-24 09:21 | Emergency (ER) | payer MEDICARE, OTHER, SELFPAY ==
[2020-03-03 16:30] VITALS: BMI 28.1
[2020-12-24] VITALS (13 sets, daily range): BP systolic 107–140; BP diastolic 58–71; PULSE 50–62; RESP 13–45; TEMP 37.1; O2SAT 94–97; BMI 27.3
--- NOTE | 2020-12-24 09:49 | DI.CT.S_ITS ---
PROCEDURE: CT HEAD/BRAIN WO CON INDICATIONS: memory problems x 1 day TECHNIQUE: Noncontrast 4.5 mm thick angled axial sections acquired from the foramen magnum to the vertex, with coronal and sagittal reformats. For radiation dose reduction, the following was used: automated exposure control, adjustment of mA and/or kV according to patient size. COMPARISON: [facility], CT, CT ANGIO HEAD AND NECK, 12/24/2020, 9:59. FINDINGS: Image quality: Excellent. CSF spaces: Basal cisterns are patent. No extra-axial fluid collections. The ventricles are symmetric in size and shape. Brain: No intracranial bleeds or masses. There is cerebral volume loss for age, with resultant ventricular and sulcal prominence. There are periventricular and deep white matter chronic small vessel ischemic changes. There is intracranial internal carotid artery atherosclerosis. Skull and face: Calvarium and visualized facial bones appear intact, without suspicious lesions. Sinuses: Visualized sinuses and mastoids are clear. IMPRESSION: Normal noncontrast head CT. No acute intracranial hemorrhage is seen. Dictated by: Bogdan Davis M.D. on 12/24/2020 at 9:15 Approved by: Bogdan Davis M.D. on 12/24/2020 at 9:16
--- NOTE | 2020-12-24 09:49 | ED.NEUROSD ---
HPI - Neuro Symptoms/Deficit General Chief Complaint: Altered Mental Status Stated Complaint: TIA Time Seen by Provider: 12/24/20 09:35 History of Present Illness HPI Narrative: Patient is a 80-year-old male history of coronary artery disease, hypertension, hyperlipidemia, TIA, remote infection of COVID, presenting today with memory issues. states that his last known well was yesterday at 3:00 p.m. he dropped her off at the hair salon and picked her up at 5:00 p.m.. He noticed that his normal routine was off. Normally he wakes in the car and she comes out however this time he parked the car in went into get her. She noticed at dinner that they had a repetitive conversation they had been to the restaurant expeditor times but he did not remember it. He states that he still is not quite right this morning. No facial droop or difficulty speaking no numbness tingling or weakness. His previous TIA presented similarly. He denies any chest pain or palpitations. He cannot remember the last 2 days and happened. Related Data Home Medications Medication Instructions Recorded Confirmed aspirin 81 mg tablet,delayed 81 mg PO DAILY 04/05/19 03/03/20 release (Adult Low Dose Aspirin) atorvastatin 20 mg tablet 20 mg PO DAILY 04/05/19 03/03/20 lisinopril 10 mg tablet 10 mg PO DAILY 04/05/19 03/03/20 metoprolol succinate 25 mg 25 mg PO DAILY 04/05/19 03/03/20 tablet,extended release 24 hr (Toprol XL) Previous Rx's Medication Instructions Recorded doxycycline hyclate 100 mg capsule 100 mg PO BID #14 cap 03/14/20 Allergies Allergy/AdvReac Type Severity Reaction Status Date / Time No Known Drug Allergies Allergy Verified 12/24/20 09:49 Review of Systems Review of Systems Narrative: GENERAL: Denies chills, fatigue, malaise, fever, sweats, travel HEENT: Denies sinus pain, ear pain, sore throat, difficulty swallowing, neck pain RESPIRATORY: Denies dyspnea, cough, wheezing, hemoptysis, sputum. CARDIOVASCULAR: Denies chest pain, palpitations, orthopnea, edema GASTROINTESTINAL: Denies nausea, vomiting, abdominal pain, diarrhea, constipation, melena. : Denies dysuria, frequency, incontinence, hematuria, urinary retention, flank pain. MUSCULOSKELETAL: Denies weakness, joint pain, or bony pain SKIN: No rash, no erythema, no pruritus NEUROLOGIC: See HPI PSYCHIATRIC: No concerning psychosocial issues. 12 point review of systems is negative except for those stated above and HPI Patient History Medical History Aortic root dilatation BPH w urinary obs/LUTS CAD (coronary artery disease) (~2014) Essential hypertension History of gout History of stroke Impaired fasting glucose Left ventricular hypertrophy due to hypertensive disease Leukocytosis Mild aortic stenosis Mixed hyperlipidemia Surgical History S/P appendectomy Status post primary angioplasty with coronary stent (02/16/15) Family History Mother Breast cancer genetic susceptibility Social History household members: spouse Smoking Status: Never smoker Smoking Status: Never smoker alcohol intake frequency: 0-2 drinks per day Substance Use Type: does not use Exam Initial Vital Signs Initial Vital Signs: Vital Signs Pulse Rate 59 L 12/24/20 09:37 Respiratory Rate 22 12/24/20 09:37 Pulse Oximetry 96 12/24/20 09:37 GENERAL: Alert well-appearing 80 male and in no acute distress. HEENT: Head atraumatic,EOMI, pupils reactive, face symmetric, moist mucous membranes CARDIOVASCULAR: Regular rate and rhythm without murmurs, rubs or gallops. RESPIRATORY: Breath sounds equal bilaterally, no wheezes rales or rhonchi. ABDOMEN: Soft, nontender. Normoactive bowel sounds all 4 quadrants. No guarding or rebound. EXTREMITIES: Normal range of motion, no clubbing or edema. Neurovascularly intact NEUROLOGICAL: Alert and oriented x3 (confused on year), still cannot remember events of yesterday or the day before. Normal speech speech. Cranial nerves II through XII grossly intact. Good ctxccs-oh-mdbz, good wzcn-fg-qhao, strength equal bilaterally, no dysarthria or aphasia, sensation in tact to soft touch bilaterally, no visual changes, no facial droop SKIN: Warm, dry, no laceration, no petechiae, no rashes or lesions. Scores NIH Stroke Scale Level of Conciousness: Alert, keenly responsive Ask month/age: Answers both questions correctly. Open/close eyes, close hand: Performs both tasks correctly Best gaze horizontal: Normal Visual beverly: No visual loss Facial palsy: Normal symetrical movement Left arm drift: No drift for full 10 sec Right arm drift: No drift for full 10 sec Left leg drift: No drift for full 5 sec Right leg drift: No drift for full 5 sec Limb ataxia: Absent Sensory on face/arms/legs: Normal, no sensory loss Best language: No aphasia, normal Dysarthria: Normal Extinction or inattention: No abnormality Total NIH Stroke scale score: 0 Course Orders Ordered: ED Orders 12/24/20 09:44 Complete Blood Count AUTO DIFF Stat Comprehensive Metabolic Panel Stat Troponin & CK Cardiac Panel Stat 12/24/20 09:49 CT head/brain wo con Stat EKG-12 Lead Stat 12/24/20 10:06 CT angio head and neck Stat 12/24/20 10:42 MR head/brain wo con Stat Vital Signs Vital signs: Vital Signs - 8 hr 12/24/20 10:41 12/24/20 11:00 12/24/20 11:30 Pulse Rate 54 L 51 L 52 L Respiratory Rate 23 18 18 Blood Pressure 125/58 L 111/61 107/59 L Pulse Oximetry 96 95 94 12/24/20 12:00 12/24/20 12:01 12/24/20 12:55 Pulse Rate 55 L 51 L Respiratory Rate 45 H 13 Blood Pressure 133/61 137/71 Pulse Oximetry 95 97 12/24/20 13:00 12/24/20 13:30 12/24/20 14:00 Pulse Rate 50 L 51 L 54 L Respiratory Rate 18 17 21 Blood Pressure 130/70 122/68 140/64 Pulse Oximetry 95 94 96 MDM - Neuro Symptoms/Deficit Lab Data Result diagrams: 12/24/20 09:44 12/24/20 09:44 Labs: Lab Results 12/24/20 12/24/20 Range/Units 09:44 09:44 WBC 10.1 (4.5-11.0) X10^3/uL RBC 4.99 (4.5-5.9) X10^6/uL Hgb 14.3 (13.5-17.5) g/dL Hct 42.3 (41-53) % MCV 84.8 (80-100) fL MCH 28.7 (26-34) PG MCHC 33.8 (30-36) % RDW 14.0 (11.6-14.8) % Plt Count 331 (150-400) X10^3/uL Neut % (Auto) 72.1 (50-75) % Lymph % (Auto) 17.8 L (25-40) % Orange % (Auto) 7.5 (3-14) % Eos % (Auto) 2.0 (2-4) % Baso % (Auto) 0.6 (0-2) % Neut # (Auto) 7300 H (9068-2824) /uL Lymph # (Auto) 1800 (8685-8486) /uL Orange # (Auto) 800 (0-900) /uL Eos # (Auto) 200 (0-450) /uL Baso # (Auto) 100 (0-100) /uL Sodium 137 (137-145) mmol/L Potassium 4.4 (3.4-5.1) mmol/L Chloride 103 (98-107) mmol/L Carbon Dioxide 25 (22-32) mmol/L BUN 23 H (9-20) mg/dL Creatinine 1.17 (0.66-1.25) mg/dL Estimated GFR > 60.0 (>60) mL/min BUN/Creatinine Ratio 19.7 (6-22) Glucose 102 (80-110) mg/dL Calcium 9.4 (8.4-10.2) mg/dL Total Bilirubin 0.6 (0.2-1.3) mg/dL AST 22 (17-59) IU/L ALT 17 (<50) IU/L Alkaline Phosphatase 65 (38-126) U/L Total Creatine Kinase 63 (55-170) U/L CK-MB (CK-2) TNP CK-MB (CK-2) Rel Index TNP Troponin I < 0.012 (0.01-0.034) ng/mL Total Protein 7.1 (6.3-8.2) g/dL Albumin 4.4 (3.5-5.0) g/dL Globulin 2.7 (1.7-4.1) g/dL Albumin/Globulin Ratio 1.6 (1.0-2.8) Point of Care Testing Glucose POC 102 Urine Dip Bedside Urine Glucose Negative Bedside Urine Bilirubin - Negative Bedside Urine Ketone - Negative Urine Specific Gibson 1.015 Bedside Urine Occult Blood - Negative Bedside Urine pH 6 Bedside Urine Protein - Negative Bedside Urine Urobilinogen - Negative Bedside Urine Nitrite - Negative Bedside Urine Leukocytes - Negative Esterase Imaging Data CT scan - head: Radiologist's Impression: PROCEDURE:? CT HEAD/BRAIN WO CON ? INDICATIONS:? memory problems x 1 day ? TECHNIQUE:? Noncontrast 4.5 mm thick angled axial sections acquired from the foramen magnum to the vertex, with coronal and sagittal reformats.? For radiation dose reduction, the following was used:? automated exposure control, adjustment of mA and/or kV according to patient size.? ? COMPARISON:? [facility], CT, CT ANGIO HEAD AND NECK, 12/24/2020, 9:59. ? FINDINGS:? Image quality:? Excellent.? ? CSF spaces:? Basal cisterns are patent.? No extra-axial fluid collections.? The ventricles are symmetric in size and shape.? ? Brain:? No intracranial bleeds or masses.? There is cerebral volume loss for age, with resultant ventricular and sulcal prominence.? There are periventricular and deep white matter chronic small vessel ischemic changes.? There is intracranial internal carotid artery atherosclerosis.? ? Skull and face:? Calvarium and visualized facial bones appear intact, without suspicious lesions.? ? Sinuses:? Visualized sinuses and mastoids are clear.? ? ? IMPRESSION:? ? Normal noncontrast head CT.? ? No acute intracranial hemorrhage is seen.? ? ? Dictated by: Bogdan Davis M.D. on 12/24/2020 at 9:15 ? ? CTA - brain/neck: Radiologist's Impression: PROCEDURE:? CT HEAD/BRAIN WO CON ? INDICATIONS:? memory problems x 1 day ? TECHNIQUE:? Noncontrast 4.5 mm thick angled axial sections acquired from the foramen magnum to the vertex, with coronal and sagittal reformats.? For radiation dose reduction, the following was used:? automated exposure control, adjustment of mA and/or kV according to patient size.? ? COMPARISON:? [facility], CT, CT ANGIO HEAD AND NECK, 12/24/2020, 9:59. ? FINDINGS:? Image quality:? Excellent.? ? CSF spaces:? Basal cisterns are patent.? No extra-axial fluid collections.? The ventricles are symmetric in size and shape.? ? Brain:? No intracranial bleeds or masses.? There is cerebral volume loss for age, with resultant ventricular and sulcal prominence.? There are periventricular and deep white matter chronic small vessel ischemic changes.? There is intracranial internal carotid artery atherosclerosis.? ? Skull and face:? Calvarium and visualized facial bones appear intact, without suspicious lesions.? ? Sinuses:? Visualized sinuses and mastoids are clear.? ? ? IMPRESSION:? ? Normal noncontrast head CT.? ? No acute intracranial hemorrhage is seen.? ? ? Dictated by: Bogdan Davis M.D. on 12/24/2020 at 9:15 ? ? MR head: Radiologist's Impression: PROCEDURE:? MR HEAD/BRAIN WO CON ? INDICATIONS:? difficulty remembering x 1 day ? TECHNIQUE:? Non-contrast axial T1 spin echo, axial T2 fast spin echo, sagittal and axial FLAIR, coronal T2 fast spin echo, axial gradient echo, axial diffusion and ADC through the brain.? ? COMPARISON:? [facility], CT, CT ANGIO HEAD AND NECK, 12/24/2020, 9:59.? [facility], CT, CT HEAD/BRAIN WO CON, 12/24/2020, 9:59. ? FINDINGS:? Image quality:? This examination is limited by involuntary motion artifact.? ? CSF spaces:? Ventricles appear symmetric in size and shape.? Basal cisterns are patent.? No extra-axial fluid collections.? ? Brain:? No intracranial bleeds or mass effects.? There is cerebral volume loss for age.? There are periventricular and deep white matter chronic small vessel ischemic changes.? Brainstem appears normal.? Diffusion-weighted images show no acute ischemic insults.? No chronic ischemic insults.? Normal intravascular flow voids are present.? ? Skull and face:? Calvarial bone marrow is normal in signal.? Orbits are normal.? Note is made of bilateral lens replacements. ? Sinuses:? Sinuses and mastoids are clear.? ? ? IMPRESSION:? No findings of acute or subacute infarction can be seen. ? Note is made of age-appropriate brain parenchymal volume loss and chronic small vessel ischemic changes. ? ? Dictated by: Bogdan Davis M.D. on 12/24/2020 at 11:55 ?? ECG Data Interpretation: Normal sinus rhythm rate 59 OR interval 204 QRS [address] changes no T-wave inversion MDM Narrative Medical decision making narrative: Patient is out of the window for tPA. He actually does not have focal deficits and has an NIH is 0. She does have some amnesia and very mild repetitive questioning. Possible transient global amnesia versus TIA. Fortunately the MRI does not show any acute stroke. Discussion of test results and treatment in the emergency department with both patient and his . At this time agrees with outpatient follow-up and return as needed. He is taking aspirin 81 mg already. Discharge Plan Departure Patient Disposition: Home Clinical Impression: Amnesia, global, transient Instructions: DI for Transient Ischemic Attack Activity Restrictions/Additional Instructions: *You have been diagnosed with transient global amnesia *What to do: This is similar to small stroke. Her MRI is negative and other testing done today is negative. Please continue to take aspirin 81 mg daily. He may need further testing with her primary care provider *Continue to take medications as directed *Follow up with your primary care provider in 2-3 days *Return to ER if you should have increasing confusion, weakness, numbness, tingling or any new, worsening or concerning symptoms Prescriptions: No Action atorvastatin 20 mg tablet 20 mg PO DAILY RF: 0 lisinopril 10 mg tablet 10 mg PO DAILY RF: 0 metoprolol succinate [Toprol XL] 25 mg tablet extended release 24 hr 25 mg PO DAILY RF: 0 aspirin [Adult Low Dose Aspirin] 81 mg tablet,delayed release (DR/EC) 81 mg PO DAILY RF: 0 doxycycline hyclate 100 mg capsule 100 mg PO BID Qty: 14 RF: 0 Referrals: Alicia Huitron ARNP [Primary Care Provider] -
[2020-12-24 10:02] LABS: Add Manual Diff / Slide Review NO; Basophils Absolute Auto 100 /uL (0-100); Basophils Percent Auto 0.6 % (0-2); Eosinophils Absolute Auto 200 /uL (0-450); Hematocrit 42.3 % (41-53); Hemoglobin 14.3 g/dL (13.5-17.5); Lymphocytes Absolute Auto 1800 /uL (1100-4500); Lymphocytes Percent Auto 17.8 % (25-40); Mean Corpuscular HGB Conc 33.8 % (30-36); Mean Corpuscular Hemoglobin 28.7 PG (26-34); Mean Corpuscular Volume 84.8 fL (80-100); Monocytes Absolute Auto 800 /uL (0-900); Monocytes Percent Auto 7.5 % (3-14); Neutrophils Absolute Auto 7300 /uL (1500-7000); Neutrophils Percent Auto 72.1 % (50-75); Platelet Count 331 X10^3/uL (150-400); Red Blood Cell Count 4.99 X10^6/uL (4.5-5.9); White Blood Cell Count 10.1 X10^3/uL (4.5-11.0)
--- NOTE | 2020-12-24 10:06 | DI.CT.S_ITS ---
PROCEDURE: CT ANGIO HEAD AND NECK INDICATIONS: memory problems TECHNIQUE: Noncontrast images were performed earlier in the day and not repeated. After the administration of intravenous contrast, 1 mm thick sections acquired from the aortic arch through the [place] of [place]. Post-contrast 4.5 mm thick sections then re-acquired from the foramen magnum to the vertex. 3-dimensional mlfgpui-ypvybzhhr-xykzxpvzpa (MIP) and/or volume rendering reformats were acquired of the central intracranial vasculature and neck separately. COMPARISON: [facility], CT, CT HEAD/BRAIN WO CON, 12/24/2020, 9:59. FINDINGS: Image quality: Excellent. BRAIN: CSF spaces: Ventricles are normal in size and shape. Basal cisterns are patent. No extra-axial fluid collections. Brain: No midline shift. No intracranial bleeds or masses. Colindres-white matter interface appears intact. Skull and face: Calvarium and facial bones appear intact, without suspicious lesions. Orbits appear normal. Sinuses: Sinuses and mastoids are clear. HEAD CT ANGIOGRAPHY: Anterior circulation: Intracranial internal carotid arteries demonstrate dense atherosclerotic calcification, with 40-50% luminal narrowing seen on each side. The flow within the paired anterior cerebral arteries is normal and symmetric. The flow within the middle cerebral arteries is normal and symmetric. The anterior communicating artery is seen. No aneurysms are seen. Posterior circulation: There is poor flow seen within the distal right V4 segment. The left V4 segment is unremarkable. The distal vertebral arteries join to form the basilar artery. The basilar artery appears somewhat small in caliber, without a focal narrowing seen. There is a prominent right posterior communicating artery seen, with an accompanying diminutive right P1 segment. This is attributed to a type origin of the right posterior cerebral artery, which is considered to be a normal developmental variant of typically no clinical consequence. Flow within the posterior cerebral arteries is normal and symmetric. No aneurysms are seen. NECK CT ANGIOGRAPHY: Carotid system: The great vessels demonstrate a conventional anatomy as they arise from the aortic arch. The origins of the common carotid arteries appear patent. The common carotid arteries demonstrate normal caliber and courses. The bifurcation regions are both widely patent. The internal carotid arteries demonstrate normal calibers and courses. Posterior circulation: The right vertebral artery is believed to be occluded at its origin. Within the right vertebral artery, there is a small amount of intermittent flow seen, which is supplied via collateral circulation. There is 30-40% narrowing seen involving the origin of the left vertebral artery. The left vertebral artery is otherwise unremarkable. Soft tissues: Visualized neck soft tissues demonstrate no suspicious abnormalities. Bones: No suspicious bony lesions. Visualized cervical spine appears normally aligned. At least moderate cervical spine degenerative change can be seen. IMPRESSION: No significant intracranial arterial abnormality is seen. Small caliber basilar artery, without focal narrowing seen. 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 A small amount of intermittent flow can be seen within the right vertebral artery, supplied via collateral circulation. 30-40% narrowing seen involving the origin of the left vertebral artery. Normal appearing carotid system within the neck. Incidental note is made of: type origin of the right posterior cerebral artery At least moderate cervical spine degenerative change Any quantitative measurements of stenosis were performed using NASCET criteria. Dictated by: Bogdan Davis M.D. on 12/24/2020 at 9:16 Approved by: Bogdan Davis M.D. on 12/24/2020 at 9:24
[2020-12-24 10:07] LABS: Alanine Aminotransferase 17 IU/L (<50); Albumin 4.4 g/dL (3.5-5.0); Albumin Globulin Ratio 1.6 (1.0-2.8); Alkaline Phosphatase 65 U/L (38-126); Aspartate Aminotransferase 22 IU/L (17-59); BUN Creatinine Ratio 19.7 (6-22); Bilirubin Total 0.6 mg/dL (0.2-1.3); Blood Urea Nitrogen 23 mg/dL (9-20); Calcium 9.4 mg/dL (8.4-10.2); Carbon Dioxide 25 mmol/L (22-32); Chloride 103 mmol/L (98-107); Creatine Kinase 63 U/L (55-170); Estimated Glomerular Filt Rate > 60.0 mL/min (>60); Globulin 2.7 g/dL (1.7-4.1); Glucose 102 mg/dL (80-110); HEMOLYSIS < 15 (0-50); Potassium 4.4 mmol/L (3.4-5.1); Sodium 137 mmol/L (137-145); Total Protein 7.1 g/dL (6.3-8.2)
[2020-12-24 10:18] LABS: Troponin I < 0.012 ng/mL (0.01-0.034)
--- NOTE | 2020-12-24 10:42 | DI.MRI.S_ITS ---
PROCEDURE: MR HEAD/BRAIN WO CON INDICATIONS: difficulty remembering x 1 day TECHNIQUE: Non-contrast axial T1 spin echo, axial T2 fast spin echo, sagittal and axial FLAIR, coronal T2 fast spin echo, axial gradient echo, axial diffusion and ADC through the brain. COMPARISON: [facility], CT, CT ANGIO HEAD AND NECK, 12/24/2020, 9:59. [facility], CT, CT HEAD/BRAIN WO CON, 12/24/2020, 9:59. FINDINGS: Image quality: This examination is limited by involuntary motion artifact. CSF spaces: Ventricles appear symmetric in size and shape. Basal cisterns are patent. No extra-axial fluid collections. Brain: No intracranial bleeds or mass effects. There is cerebral volume loss for age. There are periventricular and deep white matter chronic small vessel ischemic changes. Brainstem appears normal. Diffusion-weighted images show no acute ischemic insults. No chronic ischemic insults. Normal intravascular flow voids are present. Skull and face: Calvarial bone marrow is normal in signal. Orbits are normal. Note is made of bilateral lens replacements. Sinuses: Sinuses and mastoids are clear. IMPRESSION: No findings of acute or subacute infarction can be seen. Note is made of age-appropriate brain parenchymal volume loss and chronic small vessel ischemic changes. Dictated by: Bogdan Davis M.D. on 12/24/2020 at 11:55 Approved by: Bogdan Davis M.D. on 12/24/2020 at 11:57
== END 2020-12-24 14:12 | disposition home or self-care (01) ==
PROVIDERS: Emergency Provider Emergency Medicine; PCP Nurse Practitioner Family
DX: G45.4 Transient global amnesia (principal); I10 Essential (primary) hypertension
CPT/HCPCS: 36415; 70450; 70496; 70498; 70551; 80053; 81003; 82550; 82962; 84484; 85025; 93005; 99284

== ENCOUNTER 2021-10-16 14:36 | Inpatient (IN) | payer MEDICARE, OTHER, SELFPAY ==
[2020-03-03 16:30] VITALS: BMI 28.1
[2021-10-16] VITALS (17 sets, daily range): BP systolic 101–139; BP diastolic 49–72; PULSE 59–98; RESP 13–22; TEMP 36.1–37.1; O2SAT 93–99; BMI 28.8
--- NOTE | 2021-10-16 | DI.RAD.S_ITS ---
PROCEDURE: XR HIP W PEL IF DONE LT 2V INDICATIONS: FRACTURED LEFT HIP TECHNIQUE: 7 views of the hip were acquired. COMPARISON: [facility], CR, XR HIP W PEL IF DONE LT 2V, 10/16/2021, 14:56. FINDINGS: 7 intraoperative fluoroscopic views demonstrate open reduction and internal fixation of the previously described intertrochanteric proximal left femoral fracture. There is improved alignment with placement a telescoping screw traversing the femoral neck and a proximal lateral femoral fixation plate. There are 4 associated fixation screws. IMPRESSION: 1. Intraoperative fluoroscopic views demonstrate ORIF of intertrochanteric left femoral fracture. Dictated by: Yuan Ro M.D. on 10/16/2021 at 20:51 Approved by: Yuan Ro M.D. on 10/16/2021 at 20:52
--- NOTE | 2021-10-16 14:49 | DI.RAD.S_ITS ---
PROCEDURE: XR HIP W PEL IF DONE LT 2V INDICATIONS: Fall, unable to bear weight TECHNIQUE: AP pelvis with AP and lateral views of the left hip. COMPARISON: None. FINDINGS: Bones: A comminuted intertrochanteric fracture of the left proximal femur is seen with lateral displacement of the distal femoral shaft fragment. Osseous structures are otherwise intact. Degenerative changes are seen in the hips and lower lumbar spine. Soft tissues: The visualized bowel gas pattern is normal. No suspicious soft tissue calcifications. IMPRESSION: Displaced intertrochanteric fracture of the left proximal femur. Dictated by: Mina Castillo M.D. on 10/16/2021 at 15:32 Approved by: Mina Castillo M.D. on 10/16/2021 at 15:34
--- NOTE | 2021-10-16 15:26 | DI.RAD.S_ITS ---
PROCEDURE: XR CHEST 1V INDICATIONS: fall TECHNIQUE: One view of the chest was acquired. COMPARISON: [facility], , XR CHEST 1V, 03/14/2020, 9:36. [facility], CR, XR CHEST 1V, 03/03/2020, 13:11. FINDINGS: Surgical changes and devices: None. Lungs and pleura: Lungs appear clear. No pleural effusions or pneumothorax. Mediastinum: Mediastinal contours appear unchanged. Heart size is prominent. Bones and chest wall: No suspicious bony lesions. Overlying soft tissues appear unremarkable. IMPRESSION: No acute cardiopulmonary abnormality identified. Dictated by: Kaz Laura M.D. on 10/16/2021 at 15:54 Approved by: Kaz Laura M.D. on 10/16/2021 at 15:56
--- NOTE | 2021-10-16 15:30 | ED.FALL ---
HPI - Fall General Chief Complaint: Fall Stated Complaint: GLF Time Seen by Provider: 10/16/21 15:22 Source: patient and EMS Mode of arrival: EMS History of Present Illness HPI Narrative: Patient is a 81-year-old male history of hypertension coronary artery disease with stent hyperlipidemia presenting today after a fall. He says he fell on his fell landing on his left hip. He did not his head or lose consciousness. He has no neck pain. No chest pain or shortness of breath. But is having pain and spasming in the left hip area. Says he fell about 4 stairs. Related Data Home Medications Medication Instructions Recorded Confirmed aspirin 81 mg tablet,delayed 81 mg PO DAILY 04/05/19 10/16/21 release (Adult Low Dose Aspirin) atorvastatin 20 mg tablet 40 mg PO DAILY 04/05/19 10/16/21 lisinopril 10 mg tablet 10 mg PO DAILY 04/05/19 10/16/21 metoprolol succinate 25 mg 25 mg PO DAILY 04/05/19 10/16/21 tablet,extended release 24 hr (Toprol XL) Allergies Allergy/AdvReac Type Severity Reaction Status Date / Time No Known Drug Allergies Allergy Verified 12/24/20 09:49 Review of Systems Review of Systems Narrative: GENERAL: Denies chills,fever HEENT: Denies throat pain RESPIRATORY: Denies dyspnea, cough, wheezing CARDIOVASCULAR: Denies chest pain, palpitations GASTROINTESTINAL: Denies nausea, vomiting MUSCULOSKELETAL: See HPI SKIN: No rash, no laceration, no pruritus NEUROLOGIC: Denies weakness, dizziness, headache, numbness 8 point review of systems is negative except for those stated above and HPI Patient History Medical History Aortic root dilatation BPH w urinary obs/LUTS CAD (coronary artery disease) (~2014) Essential hypertension History of gout History of stroke Impaired fasting glucose Left ventricular hypertrophy due to hypertensive disease Leukocytosis Mild aortic stenosis Mixed hyperlipidemia Surgical History S/P appendectomy Status post primary angioplasty with coronary stent (02/16/15) Family History Mother Breast cancer genetic susceptibility Father No pertinent past medical history Social History household members: spouse Smoking Status: Never smoker Smoking Status: Never smoker alcohol intake frequency: 0-2 drinks per day Substance Use Type: does not use Exam Initial Vital Signs Initial Vital Signs: Vital Signs Temperature 97.0 F L 10/16/21 14:45 Pulse Rate 59 L 10/16/21 14:45 Respiratory Rate 18 10/16/21 14:45 Blood Pressure 123/56 L 10/16/21 14:45 Pulse Oximetry 98 10/16/21 14:45 Oxygen Delivery Method 10/16/21 14:45 GENERAL: Alert pleasant 81-year-old male and in no acute distress. HEENT: Head atraumatic,EOMI, pupils reactive, face symmetric, moist mucous membranes CARDIOVASCULAR: Regular rate and rhythm without murmurs, rubs or gallops. RESPIRATORY: Breath sounds equal bilaterally, no wheezes rales or rhonchi. ABDOMEN: Soft, nontender. Normoactive bowel sounds all 4 quadrants. No guarding or rebound. EXTREMITIES: Normal range of motion, no clubbing or edema. Neurovascularly intact Positional of comfort left hip is tender shortened faint palpable pulses found NEUROLOGICAL: Alert and oriented x4. SKIN: Warm, dry, no laceration, no petechiae, no rashes or lesions. Course Orders Ordered: Atorvastatin Calcium (Atorvastatin 20 Mg Tablet) 40 mg PO DAILY [facility] Enoxaparin Sodium (Enoxaparin 40 Mg/0.4 Ml Syringe) 40 mg SUBCUT DAILY [facility] Stop: 10/27/21 20:53 Lactated Ringer's (Lactated Ringers) 1,000 mls @ 125 mls/hr IV CONT [facility] Last Admin: 10/16/21 21:49 Dose: 125 mls/hr Documented By: DARRON Lisinopril (Lisinopril 10 Mg Tablet) 10 mg PO DAILY [facility] Metoprolol Succinate (Metoprolol Er 25 Mg Tablet) 25 mg PO DAILY [facility] Naloxone HCl (Naloxone 0.4 Mg/Ml Vial) 0.2 mg IV Q2MIN PRN PRN Reason: Opiate Reversal Ondansetron HCl (Ondansetron 4 Mg Odt) 4 mg PO Q4HR PRN PRN Reason: Nausea And Vomiting Oxycodone HCl (Oxycodone Ir 5 Mg Tablet) 5 mg PO Q3HR PRN PRN Reason: Pain, Mild (1-3) Oxycodone HCl (Oxycodone Ir 10 Mg Tablet) 10 mg PO Q3HR PRN PRN Reason: Pain, Moderate (4-6) Polyethylene Glycol (Polyethylene Glycol 3350 17 Gm Powd.Pack) 17 gm PO DAILY PRN PRN Reason: Constipation Discontinued Medications Bupivacaine HCl/Epinephrine Bitart (Bupivacaine 0.5% W/ Epi (Pf) 30 Ml Vial) 30 ml INJ NOW ONE Stop: 10/16/21 19:56 Last Admin: 10/16/21 19:56 Dose: 30 ml Documented By: CHARU Fentanyl (Fentanyl 100 Mcg/2 Ml Inj) 0 mcg IV Q5M PRN PRN Reason: Pain, Moderate (4-6) Hydromorphone HCl (Hydromorphone 0.5 Mg Inj) 1 mg IV Q2H PRN PRN Reason: Pain, Severe (7-10) Last Admin: 10/16/21 17:43 Dose: 1 mg Documented By: BILL Hydromorphone HCl (Hydromorphone 2 Mg Inj) 0 mg IV Q5M PRN PRN Reason: Pain, Moderate (4-6) Sodium Chloride (Normal Saline 0.9%) 1,000 mls @ 100 mls/hr IV CONT NICKI Last Admin: 10/16/21 19:55 Dose: Not Given Documented By: DARRON Sodium Chloride (Normal Saline 0.9%) 1,000 mls @ 1,000 mls/hr IV BOLUS ONE Stop: 10/16/21 18:38 Last Admin: 10/16/21 17:53 Dose: 1,000 mls/hr Documented By: BILL Lactated Ringer's (Lactated Ringers) 1,000 mls @ 42 mls/hr IV CONT NICKI Last Infusion: 10/16/21 20:58 Dose: 0 mls/hr Documented By: Admin: 10/16/21 20:57 Dose: 42 mls/hr Documented By: Infusion: 10/16/21 20:57 Dose: 0 mls/hr Documented By: Admin: 10/16/21 18:31 Dose: 42 mls/hr Documented By: HESHAM Cefazolin Sodium/Dextrose (Ancef) 100 mls @ 200 mls/hr IV NOW ONE Stop: 10/16/21 19:39 Last Infusion: 10/16/21 19:30 Dose: 0 mls/hr Documented By: Admin: 10/16/21 19:25 Dose: 200 mls/hr Documented By: BRE Metoclopramide HCl (Metoclopramide 10 Mg/2 Ml Inj) 10 mg IV NOW PRN PRN Reason: Nausea And Vomiting Morphine Sulfate (Morphine 4 Mg/Ml Inj) 4 mg IV NOW ONE Stop: 10/16/21 15:28 Last Admin: 10/16/21 16:09 Dose: 4 mg Documented By: ANGY Ondansetron HCl (Ondansetron 4 Mg/2 Ml Inj) 4 mg IV NOW ONE Stop: 10/16/21 15:28 Last Admin: 10/16/21 16:09 Dose: 4 mg Documented By: ANGY Ondansetron HCl (Ondansetron 4 Mg/2 Ml Inj) 4 mg IV Q8HR PRN PRN Reason: Nausea And Vomiting Ondansetron HCl (Ondansetron 4 Mg/2 Ml Inj) 4 mg IV NOW PRN PRN Reason: Nausea And Vomiting Oxycodone/Acetaminophen (Oxycodone/Acetaminophen 5/325 Tablet) 1 tab PO PACUNOW PRN PRN Reason: Mild or Moderate Pain Vital Signs Vital signs: Vital Signs - 8 hr 10/16/21 14:45 Temperature 97.0 F L Pulse Rate 59 L Respiratory Rate 18 Blood Pressure 123/56 L Pulse Oximetry 98 Oxygen Delivery Method Room Air - Fall Lab Data Result diagrams: 10/17/21 05:55 10/17/21 05:55 Labs: Lab Results 10/16/21 10/16/21 10/16/21 Range/Units 15:27 15:39 15:39 WBC 18.9 H (4.5-11.0) X10^3/uL RBC 4.80 (4.5-5.9) X10^6/uL Hgb 13.8 (13.5-17.5) g/dL Hct 40.4 L (41-53) % MCV 84.1 (80-100) fL MCH 28.7 (26-34) PG MCHC 34.1 (30-36) % RDW 14.5 (11.6-14.8) % Plt Count 331 (150-400) X10^3/uL Neut % (Auto) 86.6 H (50-75) % Lymph % (Auto) 6.8 L (25-40) % [place] % (Auto) 5.7 (3-14) % Eos % (Auto) 0.5 L (2-4) % Baso % (Auto) 0.4 (0-2) % Neut # (Auto) 27831 H (9215-6131) /uL Lymph # (Auto) 1300 (6788-5182) /uL [place] # (Auto) 1100 H (0-900) /uL Eos # (Auto) 100 (0-450) /uL Baso # (Auto) 100 (0-100) /uL Sodium 135 L (137-145) mmol/L Potassium 5.0 (3.4-5.1) mmol/L Chloride 104 (98-107) mmol/L Carbon Dioxide 22 (22-32) mmol/L BUN 29 H (9-20) mg/dL Creatinine 1.22 (0.66-1.25) mg/dL Estimated GFR > 60 (>60) mL/min BUN/Creatinine Ratio 23.8 H (6-22) Glucose 111 H (80-110) mg/dL Calcium 8.8 (8.4-10.2) mg/dL Total Bilirubin 0.9 (0.2-1.3) mg/dL AST 47 (17-59) IU/L ALT 21 (<50) IU/L Alkaline Phosphatase 67 (38-126) U/L Total Creatine Kinase 513 H (55-170) U/L CK-MB (CK-2) 3.21 H (<2.37) ng/mL CK-MB (CK-2) Rel Index 0.6 L (1.5-5.0) % Troponin I < 0.012 (0.01-0.034) ng/mL Total Protein 7.3 (6.3-8.2) g/dL Albumin 4.3 (3.5-5.0) g/dL Globulin 3.0 (1.7-4.1) g/dL Albumin/Globulin Ratio 1.4 (1.0-2.8) SARS-CoV-2 (PCR) Negative (Negative) Imaging Data Extremity x-ray #1: Radiologist's Impression: [address] [address] XRay Report Signed Patient: Everardo Matias MR#: [id number] : 1940 Acct:[id number] Age/Sex: 81 / M Date of Service: 10/16/21 Loc: Accession Number: [id number] ?? Procedure: XR hip w pel if done LT 2V Ordering Provider: Leah Moreno D.O. PROCEDURE:? XR HIP W PEL IF DONE LT 2V ? INDICATIONS:? Fall, unable to bear weight ? TECHNIQUE:? AP pelvis with AP and lateral views of the left hip. ? COMPARISON:? None. ? FINDINGS:? ? Bones:? A comminuted intertrochanteric fracture of the left proximal femur is seen with lateral displacement of the distal femoral shaft fragment.? Osseous structures are otherwise intact.? Degenerative changes are seen in the hips and lower lumbar spine. ? Soft tissues:? The visualized bowel gas pattern is normal.? No suspicious soft tissue calcifications.? ? IMPRESSION:? Displaced intertrochanteric fracture of the left proximal femur. ? ? ? Dictated by: Mina Castillo M.D. on 10/16/2021 at 15:32 ? ? Chest x-ray: Radiologist's Impression: Everardo Matias MR#: [id number] : 1940 Acct:[id number] Age/Sex: 81 / M Date of Service: 10/16/21 Loc: 90B-1 Accession Number: [id number] ?? Procedure: XR chest 1V Ordering Provider: Leah Moreno D.O. PROCEDURE:? XR CHEST 1V ? INDICATIONS:? fall ? TECHNIQUE:? One view of the chest was acquired.? ? COMPARISON:? [facility], , XR CHEST 1V, 03/14/2020, 9:36.? [facility], , XR CHEST 1V, 03/03/2020, 13:11. ? FINDINGS:? ? Surgical changes and devices:? None.? ? Lungs and pleura:? Lungs appear clear.? No pleural effusions or pneumothorax.? ? Mediastinum:? Mediastinal contours appear unchanged.? Heart size is prominent.? ? Bones and chest wall:? No suspicious bony lesions.? Overlying soft tissues appear unremarkable.? ? IMPRESSION:? No acute cardiopulmonary abnormality identified. ? ? ? Dictated by: Kaz Laura M.D. on 10/16/2021 at 15:54 ? ? ECG Data Interpretation: Normal sinus rhythm rate 69 MA interval 202 QRS [address] changes similar to previous EKG MDM Narrative Medical decision making narrative: Patient is found have a left intertrochanteric fracture. No other injury no sign of head injury. Chest x-ray is negative blood work is reassuring. Dr. Neal orthopedic has been consult, likely OR tonight Dr. Em, accepts Discharge Plan Departure Patient Disposition: Admitted As Inpatient Clinical Impression: Closed left hip fracture Admit Date/Time: 10/16/21 15:56 Admit Provider: Navarro Em
[2021-10-16 15:49] LABS: Add Manual Diff / Slide Review NO; Basophils Absolute Auto 100 /uL (0-100); Basophils Percent Auto 0.4 % (0-2); Eosinophils Absolute Auto 100 /uL (0-450); Eosinophils Percent Auto 0.5 % (2-4); Hematocrit 40.4 % (41-53); Hemoglobin 13.8 g/dL (13.5-17.5); Lymphocytes Absolute Auto 1300 /uL (1100-4500); Lymphocytes Percent Auto 6.8 % (25-40); Mean Corpuscular HGB Conc 34.1 % (30-36); Mean Corpuscular Hemoglobin 28.7 PG (26-34); Mean Corpuscular Volume 84.1 fL (80-100); Monocytes Absolute Auto 1100 /uL (0-900); Monocytes Percent Auto 5.7 % (3-14); Neutrophils Absolute Auto 16400 /uL (1500-7000); Neutrophils Percent Auto 86.6 % (50-75); Platelet Count 331 X10^3/uL (150-400); Red Cell Distribution Width 14.5 % (11.6-14.8); White Blood Cell Count 18.9 X10^3/uL (4.5-11.0)
[2021-10-16] MEDS: ONDANSETRON 4 MG/2 ML INJ IV (16:09)
[2021-10-16] MEDS: MORPHINE 4 MG/ML INJ IV (16:09)
[2021-10-16 16:10] LABS: COVID19 -Nasal RAPID Negative (Negative)
[2021-10-16 16:13] LABS: Troponin I < 0.012 ng/mL (0.01-0.034)
[2021-10-16 16:18] LABS: Alanine Aminotransferase 21 IU/L (<50); Albumin 4.3 g/dL (3.5-5.0); Albumin Globulin Ratio 1.4 (1.0-2.8); Alkaline Phosphatase 67 U/L (38-126); Aspartate Aminotransferase 47 IU/L (17-59); BUN Creatinine Ratio 23.8 (6-22); Bilirubin Total 0.9 mg/dL (0.2-1.3); Blood Urea Nitrogen 29 mg/dL (9-20); Calcium 8.8 mg/dL (8.4-10.2); Carbon Dioxide 22 mmol/L (22-32); Chloride 104 mmol/L (98-107); Creatine Kinase 513 U/L (55-170); Estimated Glomerular Filt Rate > 60 mL/min (>60); Glucose 111 mg/dL (80-110); Sodium 135 mmol/L (137-145); Total Protein 7.3 g/dL (6.3-8.2)
[2021-10-16 16:34] LABS: CKMB % Relative Index 0.6 % (1.5-5.0); Creatine Kinase MB 3.21 ng/mL (<2.37)
[2021-10-16 16:45] LABS: HEMOLYSIS 58 (0-50)
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
--- NOTE | 2021-10-16 17:38 | PM.HP.1 ---
History of Present Illness History of Present Illness Date Patient Seen: 10/16/21 Time Patient Seen: 17:39 Chief complaint: GLF Narrative: This is a 81 year old male with PMH of HTN, HLD, CAD who presented with left hip pain after a mechanical fall at home. He did not hit his head and denies pain in any other location. He denies recent chest pain, shortness of breath, dyspnea on exertion, lower extremity edema, palpitations, or dizziness . He denies any recent abdominal pain, nausea, vomiting, diarrhea, or constipation. He denies fever or chills. Imaging in the emergency room showed a displaced intertrochanteric fracture of the left femur. Laboratory evaluation was notable for a mild leukocytosis with WBC of 18.9, creatinine of 1.12 with a CK of 513. Troponin was undetectable. EKG showed some chronic inferior T-wave inversions, but no significant changes compared to his baseline. COVID-19 testing was negative. He was admitted for further management of his intertrochanteric left femur fracture with orthopedic consultation and surgery planned for this evening. Patient History Medical History Aortic root dilatation BPH w urinary obs/LUTS CAD (coronary artery disease) (~2014) Essential hypertension History of gout History of stroke Impaired fasting glucose Left ventricular hypertrophy due to hypertensive disease Leukocytosis Mild aortic stenosis Mixed hyperlipidemia Surgical History S/P appendectomy Status post primary angioplasty with coronary stent (02/16/15) Family & Social History Family History Mother Breast cancer genetic susceptibility Father No pertinent past medical history Social History: household members spouse Safety & Behavioral: Feels Safe in Current Yes Environment Tobacco & Substance use: Smoking Status Never smoker alcohol intake frequency 0-2 drinks per day Substance Use Type does not use Meds Home Medications and Allergies Home Medications Medication Instructions Recorded Confirmed Type aspirin 81 mg tablet,delayed 81 mg PO DAILY 04/05/19 03/03/20 History release (Adult Low Dose Aspirin) atorvastatin 20 mg tablet 20 mg PO DAILY 04/05/19 03/03/20 History lisinopril 10 mg tablet 10 mg PO DAILY 04/05/19 03/03/20 History metoprolol succinate 25 mg 25 mg PO DAILY 04/05/19 03/03/20 History tablet,extended release 24 hr (Toprol XL) Allergies Allergy/AdvReac Type Severity Reaction Status Date / Time No Known Drug Allergies Allergy Verified 12/24/20 09:49 Review of Systems Review of Systems Narrative: All other systems reviewed with the patient and are negative unless otherwise stated. Exam Vital Signs (past 8 hours): - 10/16/21 14:45 10/16/21 14:51 10/16/21 15:21 Temperature 97.0 F L Pulse Rate 59 L 70 72 Respiratory Rate 18 Blood Pressure 123/56 L Pulse Oximetry 98 95 98 Oxygen Delivery Method Room Air Oxygen Flow Rate 10/16/21 15:30 10/16/21 16:00 10/16/21 16:19 Temperature Pulse Rate 68 70 67 Respiratory Rate Blood Pressure Pulse Oximetry 97 98 97 Oxygen Delivery Method Oxygen Flow Rate 10/16/21 16:19 10/16/21 17:13 Temperature 97.6 F Pulse Rate 62 Respiratory Rate 20 Blood Pressure 117/56 L 128/65 Pulse Oximetry 99 Oxygen Delivery Method Oxygen Flow Rate 0 Oxygen Delivery Method Room Air Oxygen Flow Rate 0 Narrative Exam Narrative: General:? Patient is well developed and well nourished, in no distress at this time. HEENT:? Normocephalic, atraumatic, extraocular muscles intact, oral pharynx is clear and mucous membranes are moist. Neck: supple and symmetric, trachea is midline Chest:? Normal AP diameter and contour without kyphoscoliosis, no tachypnea, equal chest rise bilaterally. Lungs:? CTA b/l no wheezing rhonchi or rales. Cardio:?RRR no m/r/g. Abdomen: S NT ND. No CVA tenderness. Musculoskeletal:? Left leg shortened, externally rotated. No knee or ankle tenderness. Extremities: No edema or joint effusions. No cyanosis or clubbing. Skin:? Pale,? Warm to touch,dry and intact without rashes, ulcerations or petechiae.? Neuro:? Alert and orientated x3,? sensation to touch intact in all extremities, no gross deficits noted of cranial nerves. Psych:? Patient has a well-kept appearance, appropriate affect, mental status attitude thought context and judgment are appropriate for age. Objective ECG Impression: Sinus rhythm with PVC, TWI inferiorly seen on previous EKGs. Labs Result Diagrams: 10/16/21 15:39 10/16/21 15:39 Labs: Laboratory Results - last 24 hr 10/16/21 10/16/21 10/16/21 15:27 15:39 15:39 WBC 18.9 H RBC 4.80 Hgb 13.8 Hct 40.4 L MCV 84.1 MCH 28.7 MCHC 34.1 RDW 14.5 Plt Count 331 Neut % (Auto) 86.6 H Lymph % (Auto) 6.8 L [place] % (Auto) 5.7 Eos % (Auto) 0.5 L Baso % (Auto) 0.4 Neut # (Auto) 35764 H Lymph # (Auto) 1300 [place] # (Auto) 1100 H Eos # (Auto) 100 Baso # (Auto) 100 Sodium 135 L Potassium 5.0 Chloride 104 Carbon Dioxide 22 BUN 29 H Creatinine 1.22 Estimated GFR > 60 BUN/Creatinine Ratio 23.8 H Glucose 111 H Calcium 8.8 Total Bilirubin 0.9 AST 47 ALT 21 Alkaline Phosphatase 67 Total Creatine Kinase 513 H CK-MB (CK-2) 3.21 H CK-MB (CK-2) Rel Index 0.6 L Troponin I < 0.012 Total Protein 7.3 Albumin 4.3 Globulin 3.0 Albumin/Globulin Ratio 1.4 SARS-CoV-2 (PCR) Negative Assessment & Plan Assessment & Plan narrative: 1. Left intertrochanteric femur fracture, pathologic likely due to osteoporosis, present on admission - Dr. Neal with orthopedic surgery is consulting, plan for OR tonight. - would recommend fluid bolus prior to surgery given elevated CK level - continue NS infusion after surgery - RCRI class II, 6%, with 1 risk factor prior CAD. 2. Rhabdomyolysis - ordered NS @100 cc per hour, give 1L bolus prior to OR - continue NS overnight after OR. 2. HTN - can resume home medications of lisinopril and metorpolol after OR 3. CAD - EKG unchanged from prior studies. No current chest pain and troponins negative. - continue asa and statin therapy after OR. DVT: hold prior to surgery, per orthopedics following Code: Full, surrogate decision maker is Harriett, patient's spouse. Dispo: Admitted as inpatient, suspect home after surgery. I have utilized all available immediate resources to obtain, update, or review the patient's current medications. COVID-19 COVID-19 status: Negative Time Spent With Patient Critical Care time: I spent a total of [] minutes of critical care time on this patient's care today; this time is exclusive of procedural time. Quality MIPS - Admit I confirm the patient?s Advance Care Plan is present, Code status is documented, Surrogate decision maker is in patient?s record [If Yes, STOP here]: Yes
[2021-10-16] MEDS: HYDROMORPHONE 0.5 MG INJ 1 MG IV (17:43)
[2021-10-16] MEDS: SODIUM CHLORIDE 0.9% 1,000 ML 1000 ML IV (17:53)
[2021-10-16] MEDS: LACTATED RINGERS 1,000 ML 42 ML IV ×2 (18:31→20:57)
[2021-10-16] MEDS: CEFAZOLIN 2 GM/100 ML PREMIX 100 ML IV (19:25)
[2021-10-16] MEDS: BUPIVACAINE 0.5% W/ EPI (PF) 30 ML VIAL INJ (19:56)
--- NOTE | 2021-10-16 20:02 | SUR.OPER ---
Supine on padded [place]ron table with left leg secured in padded positioning boots and suspended in positioning spar, right leg in padded well leg to and secured with blanket and GLENYS perkins in place. operative leg in traction per surgeon. Head on one pillow. Arm on non-operative side secured on padded armboard <90 degrees abduction. Arm on operative side padded and resting across chest then secured with tape over sheet. Padded perineal post in place per surgeon.
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
[2021-10-16] MEDS: LACTATED RINGERS 1,000 ML 125 ML IV (21:49)
[2021-10-17] VITALS (8 sets, daily range): BP systolic 115–134; BP diastolic 61–75; PULSE 71–94; RESP 17–20; TEMP 36.6–38.8; O2SAT 94–100
[2021-10-17 06:09] LABS: Add Manual Diff / Slide Review NO; Basophils Absolute Auto 0 /uL (0-100); Basophils Percent Auto 0.1 % (0-2); Eosinophils Absolute Auto 0 /uL (0-450); Hematocrit 33.7 % (41-53); Hemoglobin 11.5 g/dL (13.5-17.5); Lymphocytes Absolute Auto 800 /uL (1100-4500); Lymphocytes Percent Auto 5.7 % (25-40); Mean Corpuscular HGB Conc 34.3 % (30-36); Mean Corpuscular Hemoglobin 28.6 PG (26-34); Mean Corpuscular Volume 83.6 fL (80-100); Monocytes Absolute Auto 1100 /uL (0-900); Monocytes Percent Auto 7.7 % (3-14); Neutrophils Absolute Auto 12400 /uL (1500-7000); Neutrophils Percent Auto 86.5 % (50-75); Platelet Count 300 X10^3/uL (150-400); Red Blood Cell Count 4.03 X10^6/uL (4.5-5.9); Red Cell Distribution Width 14.2 % (11.6-14.8); White Blood Cell Count 14.3 X10^3/uL (4.5-11.0)
[2021-10-17 06:20] LABS: BUN Creatinine Ratio 18.9 (6-22); Blood Urea Nitrogen 20 mg/dL (9-20); Calcium 7.9 mg/dL (8.4-10.2); Carbon Dioxide 23 mmol/L (22-32); Chloride 103 mmol/L (98-107); Estimated Glomerular Filt Rate > 60 mL/min (>60); Glucose 141 mg/dL (80-110); HEMOLYSIS < 15 (0-50); Potassium 4.6 mmol/L (3.4-5.1); Sodium 131 mmol/L (137-145)
--- NOTE | 2021-10-17 07:18 | PM.PNPO.1 ---
Subjective Subjective Date Patient Seen: 10/17/21 Time Patient Seen: 07:18 Interval history: Pt lying in bed, comfortable, has not been OOB since surgery. Exam Vital Signs (past 8 hours): - 10/17/21 00:15 10/17/21 02:00 10/17/21 04:00 Temperature 98.9 F 98.6 F Pulse Rate 89 90 Respiratory Rate 17 17 Blood Pressure 124/75 128/71 Pulse Oximetry 96 99 94 Oxygen Delivery Method Room Air Oxygen Flow Rate 0 0 10/17/21 06:00 Temperature Pulse Rate Respiratory Rate Blood Pressure Pulse Oximetry 98 Oxygen Delivery Method Room Air Oxygen Flow Rate Oxygen Delivery Method Room Air Oxygen Flow Rate 0 Narrative Exam Narrative: 5/5 strength in quadriceps, hamstrings, DF, PF, EHL bilaterally. 3/5 hip flexors on left. Calves soft, compressible, nontender. Sensation to light touch intact in BLE. Left hip dressings CDI. Objective Labs Result Diagrams: 10/17/21 05:55 10/17/21 05:55 Labs: Laboratory Results - last 24 hr 10/16/21 10/16/21 10/16/21 15:27 15:39 15:39 WBC 18.9 H RBC 4.80 Hgb 13.8 Hct 40.4 L MCV 84.1 MCH 28.7 MCHC 34.1 RDW 14.5 Plt Count 331 Neut % (Auto) 86.6 H Lymph % (Auto) 6.8 L Stephens % (Auto) 5.7 Eos % (Auto) 0.5 L Baso % (Auto) 0.4 Neut # (Auto) 45460 H Lymph # (Auto) 1300 Stephens # (Auto) 1100 H Eos # (Auto) 100 Baso # (Auto) 100 Sodium 135 L Potassium 5.0 Chloride 104 Carbon Dioxide 22 BUN 29 H Creatinine 1.22 Estimated GFR > 60 BUN/Creatinine Ratio 23.8 H Glucose 111 H Calcium 8.8 Total Bilirubin 0.9 AST 47 ALT 21 Alkaline Phosphatase 67 Total Creatine Kinase 513 H CK-MB (CK-2) 3.21 H CK-MB (CK-2) Rel Index 0.6 L Troponin I < 0.012 Total Protein 7.3 Albumin 4.3 Globulin 3.0 Albumin/Globulin Ratio 1.4 SARS-CoV-2 (PCR) Negative 10/17/21 10/17/21 05:55 05:55 WBC 14.3 H RBC 4.03 L Hgb 11.5 L Hct 33.7 L MCV 83.6 MCH 28.6 MCHC 34.3 RDW 14.2 Plt Count 300 Neut % (Auto) 86.5 H Lymph % (Auto) 5.7 L Stephens % (Auto) 7.7 Eos % (Auto) 0.0 L Baso % (Auto) 0.1 Neut # (Auto) 83790 H Lymph # (Auto) 800 L Stephens # (Auto) 1100 H Eos # (Auto) 0 Baso # (Auto) 0 Sodium 131 L Potassium 4.6 Chloride 103 Carbon Dioxide 23 BUN 20 Creatinine 1.06 Estimated GFR > 60 BUN/Creatinine Ratio 18.9 Glucose 141 H Calcium 7.9 L Total Bilirubin AST ALT Alkaline Phosphatase Total Creatine Kinase CK-MB (CK-2) CK-MB (CK-2) Rel Index Troponin I Total Protein Albumin Globulin Albumin/Globulin Ratio SARS-CoV-2 (PCR) PFSH Medical History Aortic root dilatation BPH w urinary obs/LUTS CAD (coronary artery disease) (~2014) Essential hypertension History of gout History of stroke Impaired fasting glucose Left ventricular hypertrophy due to hypertensive disease Leukocytosis Mild aortic stenosis Mixed hyperlipidemia Surgical History S/P appendectomy Status post primary angioplasty with coronary stent (02/16/15) Family History Mother Breast cancer genetic susceptibility Father No pertinent past medical history Social History household members: spouse Smoking Status: Never smoker Assessment & Plan Post-op Assessment and plan (1) Closed left hip fracture: Assessment and Plan narrative: WBAT on LLE. PT today; may d/c home when safe per PT and medically stable per hospitalist service. Continue enoxaparin daily through 10/27 for VTE prophylaxis; on 10/28, start ASA 81 mg BID x 5 weeks, then can return to regular home dose of ASA daily. Follow up w/ [facility] for staple removal between October 26 and Oct 30. Postoperative Procedures: Procedures Operation Date: 10/16/21 17:15 Actual Procedure Side Surgeon p ORIF Hip DHS Left Seven Neal MD Postoperative day: 1
[2021-10-17] MEDS: ENOXAPARIN 40 MG/0.4 ML SYRINGE SUBCUT (08:31)
--- NOTE | 2021-10-17 08:41 | PC.NURSE ---
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 Refused pain meds but stating pain is 3/10. Refused all other meds but lovenox injection. Dressing on left hip is CDI, CMS WNL, and pedal pulses +4. Explained to pt that PT will get him up today, offered oxycodone but refused at this time.
[2021-10-17] MEDS: OXYCODONE IR 5 MG TABLET PO ×2 (10:35→13:08)
--- NOTE | 2021-10-17 10:35 | CM.DANOTE ---
DCP Assessment: Payor: Medicare PCP: Alicia Huitron MD Pt is a 81 y.o. M who presented to the ED via ambulance for a GLF. Pt has a PMH of HTN, CAD with stent, and hyperlipidemia. Pt told ED physician he fell 4 stairs. Ortho had been consulted. Pt had surgery last night 10/16 for a hip fracture. Pt then admitted to the floor as inpatient for further evaluation and management of surgical intervention. DCP met with the patient this morning to discuss discharge needs. Pt laying in bed. DCP introduced herself and role. Pt goes by the name Mt. Pt states that he lives in a 3 story condo with an elevator with his , Claudia, here in [place]. Pt states that he is independent at baseline and does not use any DME's. Pt states that he still drives and can get around just fine. Pt states, as long as I can walk when I get discharged, I wont need anything. Pt states that his will pick him up from the hospital when he is ready to be discharged. Whiteboard was updated. Instructed to call with any questions that might arise. Pt to work with PT today for an evaluation. DCP to continue to follow case. P: Pt to work with PT today for an evaluation. Once medically stable for discharge, pt to go home via spouse POV. R/O any SNF or Home Health. Suzanne Zarate RN/NICOLAP Discharge Planning/Care Management Advanced directive, confirm from FAMILY Start: 10/16/21 18:36 Freq: Q24H Status: Active Protocol: Document 10/16/21 18:36 DARRON (Rec: 10/16/21 21:22 DARRON [id number]) Advance Directive, confirm on record Time 21:22 Person contacted patient Copy received No CM Discharge Assessment Start: 10/17/21 08:03 Freq: Status: Active Protocol: Document 10/17/21 09:19 JIMMIE (Rec: 10/17/21 09:20 AJ [id number]) Discharge Planning Assessment Assigned Electrical Timing Device Calibrator Suzanne Zarate RN/IRMA Advance Directives? Yes Advance Directives on File No History Provided By Patient,Medical Record Prior Living Arrangements House Household Members spouse Type of transporation used prior to Drives own vehicle admit Independent with ADL's Yes Is patient alert and oriented? Yes Caregiver for Another No Discharge Plan Home Transportation Arrangement Spouse POV Referrals Initiated None needed Whiteboard Updated in Patient Room with Yes name and ext. # of Electrical Timing Device Calibrator Comment Instructed to call Review Status In Process Please Provide Date Initial DC 10/17/21 Assessment Was Performed Next Review Type Continued Stay Review
--- NOTE | 2021-10-17 11:19 | PT.IIE ---
Current Diagnoses Fracture of unspecified part of neck of left femur, initial encounter for closed fracture (10/16/21) Surgery Performed Operation Date: 10/16/21 17:15 Actual Procedures p ORIF Hip DHS(Left) - Seven Neal MD Surgical History (Last Reviewed 10/16/21 @ 17:49 by Navarro Em DO) S/P appendectomy Status post primary angioplasty with coronary stent (02/16/15) Medical History (Last Reviewed 10/16/21 @ 17:49 by Navarro Em DO) Aortic root dilatation BPH w urinary obs/LUTS CAD (coronary artery disease) (~2014) Essential hypertension History of gout History of stroke Impaired fasting glucose Left ventricular hypertrophy due to hypertensive disease Leukocytosis Mild aortic stenosis Mixed hyperlipidemia Physical Therapy Inpatient Evaluation/Re-Eval M1 PT/OT-IP Prior Functional Status Start: 10/17/21 12:29 Freq: NEEDED Status: Active Protocol: Document 10/17/21 11:19 AB (Rec: 10/17/21 12:45 AB [email or web address]) Medical Review Prior Functional Status Medical History Reviewed Yes Communication able to make needs known Mobility and Gait pt stated that he is independent with all mobilities and ambulation without AD Social History Household Members spouse Living Arrangements Apartment/Condo Number of Floors (Floors) One Floor Number of Stairs To Enter/Railing? has an elevator to get into his apartment level Home Environment High Toilet,Walk in Shower, Elevator Home Equipment Shower Seat without Backrest M2 PT-IP Current Condition Start: 10/17/21 12:29 Freq: NEEDED Status: Active Protocol: Document 10/17/21 11:19 AB (Rec: 10/17/21 12:45 AB [email or web address]) Physical Therapy Current Condition Current Condition Evaluation Date 10/17/21 Treatment Diagnosis L prox femoral fx s/p ORIF; difficulty in walking Onset Date M3 PT-IP Subjective Start: 10/17/21 12:29 Freq: NEEDED Status: Active Protocol: Document 10/17/21 11:19 AB (Rec: 10/17/21 12:45 AB [email or web address]) Subjective Physical Therapy Visit Type Type Initial Evaluation Visit Start Time 11:19 Visit Stop Time 12:16 Total Visit Minutes 57 Number of DATA CENTER ARCHITECT Visits 0 Physical Therapy Visit Comments Patient Comments agreeable to do PT Therapy Pain Assessment Pain When Pain Assessed During Mobility Pain Present Pain Present Pain Reported Location Left Hip Intensity 10 Scale Used Numeric (0 - 10) Pain Behaviors Facial Grimacing,Guarding, Holding Area Pain Management Techniques Apply Cold,Distraction, Modification of Treatment,Re- positioning,Timing of Activity with Medications M4 PT-IP Mobility and Gait Start: 10/17/21 12:29 Freq: NEEDED Status: Active Protocol: Document 10/17/21 11:19 AB (Rec: 10/17/21 12:45 AB [email or web address]) PT-Bed Mobility Assessment Supine to Sit Supine to Sit Maximum Assistance,1 Person Assistance,2 Person Assistance Scooting Scooting to Edge of Bed Maximum Assistance PT-Transfer Assessment Sit to and From Stand Sit to and from Stand Maximum Assistance,1 Person Assistance,2 Person Assistance ,Use of Upper Extremities Equipment Transfer Assistive Device Front Wheeled Walker Orthotic/Prosthetic Devices or Brace: No Transfers Transfer Destination Chair Transfer Technique Stand Step Pivot Transfer Ability Level of Assist Maximum Assistance,1 Person Assistance,2 Person Assistance ,Use of Upper Extremities Comments Mobility Comments spouse in room with pt. BP in supine: 134/68 pt completed supine to sit x 3 attempts max A x 2 and max cues. c/o increase L hip pain with increase guarding affecting mobility. pt also can be impulsive. able to sit on EOB SBA to CGA with increase lateral leaning to the R. educated pt on importance of weight bearing on LLE. no c/o dizziness/ lightheadedness. BP sittin/64 and after 2 minutes 110 /63. agreed to sit on chair. completed sit to stand max A and max uces and step transfer to chair using FWW max A x 1-2 and max cues. cued for L quads activation. positioned pt on the chair. call light and table placed within reach. BP checked: 120 /78 informed pt and spouse regarding current mobility level and SNF rehab recommendation. pt and spouse understood but hoping for pt to go home and informed that PT has ongoing assessment for safe d/c plan depending on pt' s progress. PT-Balance Assessment Sitting Balance and Reactions Static Sitting Balance Ability Good Dynamic Sitting Balance Ability Fair Standing Balance and Reactions Static Standing Balance Ability Poor Dynamic Standing Balance Ability Poor Device Used FWW M5 PT-IP Objective Assessments Start: 10/17/21 12:29 Freq: NEEDED Status: Active Protocol: Document 10/17/21 11:19 AB (Rec: 10/17/21 12:45 AB [email or web address]) Orientation Orientation/Cognition Level of Alertness Alert Orientation Name,Place,Situation Language Function Ability No Deficits Noted Safety Awareness Decreased Safety Awareness Memory Description Short Term Impaired Gross Range of Motion Lower Extremity ROM Assessment Left Impaired Impairments increase LLE muscle guarding affecting ROM Strength Lower Extremity Strength Assessment Left Impaired Hip 3-/5 Knee 3-/5 Muscle Tone Muscle Tone WNL Yes M6 PT-IP Treatment Start: 10/17/21 12:29 Freq: NEEDED Status: Active Protocol: Document 10/17/21 11:19 AB (Rec: 10/17/21 12:45 AB [email or web address]) Physical Therapy Treatment Education Education Provided Precautions,Weight Bearing Status,Post-Op Packet,Safety M7 PT-IP Assessment and Plan Start: 10/17/21 12:29 Freq: NEEDED Status: Active Protocol: Document 10/17/21 11:19 AB (Rec: 10/17/21 12:45 AB [email or web address]) PT Summary Assessment and Plan Potential Rehabilitation Potential Fair Status of Condition at Evaluation Evolving Summary Impairments Pain,ROM,Strength,Balance, Coordination,Sensation,Tone, Cognition,Bed Mobility, Transfers,Gait,Activity Tolerance Assessment Summary pt requiring max A x 2 with mobility using FWW. pt with c /o increase L hip pain affecting mobility. d/c plan depending on progress but may require SNF rehab. will continue to assess progress. Goals Bed Mobility Goal Minimal Assistance Transfer Goal Minimal Assistance,Front Wheeled Walker Gait Goal Minimal Assistance,Front Wheel Walker Gait Distance 50 Other Goals improve bed mobility, transfers and ambulation using fWW 150 ft SBA Days to Meet Goals 10 Frequency of Treatment Frequency Of Treatment Twice a Day Treatment Plan Physical Therapy Treatment Plan Bed Mobility Training,Transfer Training,Gait Training, Therapeutic Exercise,Balance Retraining,Post Op Education, Discharge Planning,Hot or Cold Pack,Neuromuscular Re-ed, Coordination Retraining,Manual Therapy Precautions Other Precautions falls Weight Bearing Status Weight Bearing Status Weight Bear as Tolerated Allowed Weight Bearing Amount (enter % LLE WBAT or #) (%) Recommendations To Nursing Amount of Assist Needed 2 Person Assist Discharge Recommendations PT Discharge Recommendations Home with 21/09 Assist Available,Home Health,SNF Rehab,Home vs SNF Equipment Needed for Home Before FWW Discharge Transportation Needs at Discharge Private Vehicle,Wheelchair/ Cabulance
--- NOTE | 2021-10-17 13:11 | PC.NURSE ---
Physical therapy moved pt to chair for about an hour. Pt requested to go back to bed. Pt has stayed in same position besides moving to chair. Pt questions RN interventions and refuses staff suggestions. at bedside.
--- NOTE | 2021-10-17 14:01 | PT.IPTN ---
Current Diagnoses Fracture of unspecified part of neck of left femur, initial encounter for closed fracture (10/16/21) Surgery Performed Operation Date: 10/16/21 17:15 Actual Procedures p ORIF Hip DHS(Left) - Seven Neal MD Physical Therapy Treatment Note M2 PT-IP Current Condition Start: 10/17/21 12:29 Freq: NEEDED Status: Active Protocol: Document 10/17/21 11:19 AB (Rec: 10/17/21 12:45 [facility] Physical Therapy Current Condition Current Condition Evaluation Date 10/17/21 Treatment Diagnosis L prox femoral fx s/p ORIF; difficulty in walking Onset Date M3 PT-IP Subjective Start: 10/17/21 12:29 Freq: NEEDED Status: Active Protocol: Document 10/17/21 14:01 AB (Rec: 10/17/21 14:53 AB [email or web address]) Subjective Physical Therapy Visit Type Type Treatment Note Visit Start Time 14:01 Visit Stop Time 14:16 Total Visit Minutes 15 Number of ASH COLLECTOR Visits 0 M4 PT-IP Mobility and Gait Start: 10/17/21 12:29 Freq: NEEDED Status: Active Protocol: Document 10/17/21 14:01 AB (Rec: 10/17/21 14:53 AB [email or web address]) PT-Bed Mobility Assessment Sit to Supine Sit to Supine Maximum Assistance,2 Person Assistance,Head of Bed Elevated PT-Transfer Assessment Sit to and From Stand Sit to and from Stand Standby Assistance,Moderate Assistance,1 Person Assistance ,Use of Upper Extremities Equipment Transfer Assistive Device Gait Belt,Front Wheeled Walker Orthotic/Prosthetic Devices or Brace: No Transfers Transfer Destination Bed Transfer Technique ambulated Transfer Ability Level of Assist Moderate Assistance,1 Person Assistance,Use of Upper Extremities Comments Mobility Comments check on pt and pt using the toilet. NAC in room and PT took over pt's care. pt completed sit to stand from the toilet using grab bar SBA and ambulated to the bed using FWW mod A and cues. presents with antalgic gait with forward trunk posture and increase L knee flexion during standing. cued for posture and use of FWW for support. pt sat on EOB. refused further ambulation. completed sit to supine max A x 2 and max cues. educated and completed quads and glute sets. positioned pt on the bed. call light and table placed within reach. Gait Assessment Gait Gait Assistance Required: Moderate Assistance,1 Person Assist Able to Maintain Weight Bearing Status Yes During Gait Assistive Devices Assistive Device Gait Belt,Front Wheeled Walker Orthotic/Prosthetic Devices or Brace: Yes Gait Deviations General Gait Pattern Antalgic,Decreased Stride Length,Decreased Feet Clearance,Flexed Trunk,Step-to Gait Factors Limiting Gait Function Factors Limiting Gait Function Decreased Activity Tolerance, Decreased Strength,Difficulty Following Directions,Limited Range of Motion,Pain,Poor Balance,Poor Safety Awareness M5 PT-IP Objective Assessments Start: 10/17/21 12:29 Freq: NEEDED Status: Active Protocol: Document 10/17/21 11:19 AB (Rec: 10/17/21 12:45 AB [email or web address]) Orientation Orientation/Cognition Level of Alertness Alert Orientation Name,Place,Situation Language Function Ability No Deficits Noted Safety Awareness Decreased Safety Awareness Memory Description Short Term Impaired Gross Range of Motion Lower Extremity ROM Assessment Left Impaired Impairments increase LLE muscle guarding affecting ROM Strength Lower Extremity Strength Assessment Left Impaired Hip 3-/5 Knee 3-/5 Muscle Tone Muscle Tone WNL Yes M6 PT-IP Treatment Start: 10/17/21 12:29 Freq: NEEDED Status: Active Protocol: Document 10/17/21 14:01 AB (Rec: 10/17/21 14:53 AB [email or web address]) Physical Therapy Treatment Exercises Exercises Gluteal Sets,Quad Sets Education Education Provided Safety M7 PT-IP Assessment and Plan Start: 10/17/21 12:29 Freq: NEEDED Status: Active Protocol: Document 10/17/21 14:01 AB (Rec: 10/17/21 14:53 AB [email or web address]) PT Summary Assessment and Plan Potential Rehabilitation Potential Fair Summary Impairments Pain,ROM,Strength,Balance, Coordination,Sensation,Tone, Cognition,Bed Mobility, Transfers,Gait,Activity Tolerance Assessment Summary pt improving slowly but requires max A x 2 for bed moblity, mod A with trasnfers and ambulation. will benefit from SNF rehab but d/c plan depending on progress. joel conduct caregiver training when appropriate. Goals Bed Mobility Goal Minimal Assistance Transfer Goal Minimal Assistance,Front Wheeled Walker Gait Goal Minimal Assistance,Front Wheel Walker Gait Distance 50 Other Goals improve bed mobility, transfers and ambulation using fWW 150 ft SBA Days to Meet Goals 10 Frequency of Treatment Frequency Of Treatment Twice a Day Treatment Plan Physical Therapy Treatment Plan Bed Mobility Training,Transfer Training,Gait Training, Therapeutic Exercise,Balance Retraining,Post Op Education, Discharge Planning,Hot or Cold Pack,Neuromuscular Re-ed, Coordination Retraining,Manual Therapy Precautions Other Precautions falls Weight Bearing Status Weight Bearing Status Weight Bear as Tolerated Allowed Weight Bearing Amount (enter % LLE WBAT or #) (%) Recommendations To Nursing Amount of Assist Needed 2 Person Assist Discharge Recommendations PT Discharge Recommendations Home with 21/09 Assist Available,Home Health,SNF Rehab,Home vs SNF Equipment Needed for Home Before FWW Discharge Transportation Needs at Discharge Private Vehicle,Wheelchair/ Cabulance
--- NOTE | 2021-10-17 18:14 | P.PN_ITS ---
Subjective Subjective Date Patient Seen: 10/17/21 Interval history: 81 M admitted with L hip fracture. Pain is okay today, was able to move a bit better with therapy in the afternoon. No chest pain, nausea, vomiting, or shortness of breath. He feels well. Exam Vital Signs (past 8 hours): - 10/17/21 12:06 10/17/21 12:00 10/17/21 16:57 Temperature 98 F Respiratory Rate 19 Blood Pressure 134/69 Pulse Oximetry 97 Oxygen Delivery Method Room Air Room Air Oxygen Flow Rate 0 Oxygen Delivery Method Room Air Oxygen Flow Rate 0 Narrative Exam Narrative: General:? Patient is well developed and well nourished, in no distress at this time. HEENT:? Normocephalic, atraumatic, extraocular muscles intact, oral pharynx is clear and mucous membranes are moist. Neck: supple and symmetric, trachea is midline Chest:? Normal AP diameter and contour without kyphoscoliosis, no tachypnea, equal chest rise bilaterally. Lungs:? CTA b/l no wheezing rhonchi or rales. Cardio:?RRR no m/r/g. Abdomen: S NT ND. No CVA tenderness. Musculoskeletal:? L thigh dressing c/d/i. Slight swelling and tightness of L c long-term. +2 L popliteal pulse. Extremities: No edema or joint effusions. No cyanosis or clubbing. Skin:? Pale,? Warm to touch,dry and intact without rashes, ulcerations or petechiae.? Neuro:? Alert and orientated x3,? sensation to touch intact in all extremities, no gross deficits noted of cranial nerves. Psych:? Patient has a well-kept appearance, appropriate affect, mental status attitude thought context and judgment are appropriate for age. Objective Labs Result Diagrams: 10/17/21 05:55 10/17/21 05:55 Labs: Laboratory Results - last 24 hr 10/17/21 10/17/21 05:55 05:55 WBC 14.3 H RBC 4.03 L Hgb 11.5 L Hct 33.7 L MCV 83.6 MCH 28.6 MCHC 34.3 RDW 14.2 Plt Count 300 Neut % (Auto) 86.5 H Lymph % (Auto) 5.7 L [place] % (Auto) 7.7 Eos % (Auto) 0.0 L Baso % (Auto) 0.1 Neut # (Auto) 44329 H Lymph # (Auto) 800 L [place] # (Auto) 1100 H Eos # (Auto) 0 Baso # (Auto) 0 Sodium 131 L Potassium 4.6 Chloride 103 Carbon Dioxide 23 BUN 20 Creatinine 1.06 Estimated GFR > 60 BUN/Creatinine Ratio 18.9 Glucose 141 H Calcium 7.9 L PFSH Medical History Aortic root dilatation BPH w urinary obs/LUTS CAD (coronary artery disease) (~2014) Essential hypertension History of gout History of stroke Impaired fasting glucose Left ventricular hypertrophy due to hypertensive disease Leukocytosis Mild aortic stenosis Mixed hyperlipidemia Surgical History S/P appendectomy Status post primary angioplasty with coronary stent (02/16/15) Family History Mother Breast cancer genetic susceptibility Father No pertinent past medical history Social History household members: spouse Smoking Status: Never smoker Assessment & Plan Assessment & Plan narrative: 1. Left intertrochanteric femur fracture, pathologic likely due to osteoporosis, present on admission - Dr. Neal with orthopedic surgery is consulting, he is POD #1 ORIF. Doing w ell thus far. - continue PT/OT. 2. Rhabdomyolysis - 1L NS given prior to surgery, LR continued after. Can continue oral rehydration for now, monitor kidney function. 2. HTN - can resume home medications of lisinopril and metorpolol, BP controlled today. 3. CAD - EKG unchanged from prior studies. No current chest pain and troponins negative. - continue asa and statin therapy DVT: per orthopedics following surgery Code: Full, surrogate decision maker is Harriett, patient's spouse. Dispo: Admitted as inpatient, suspect home after surgery, possible SNF I have utilized all available immediate resources to obtain, update, or review the patient's current medications. COVID-19 COVID-19 status: Negative Time Spent With Patient Critical Care time: I spent a total of [] minutes of critical care time on this patient's care today; this time is exclusive of procedural time.
[2021-10-17] MEDS: CALCIUM CARB/VIT D3 500/200 TABLET 1 EACH PO (18:19)
--- NOTE | 2021-10-17 19:49 | PC.NURSE ---
Vitals taken, notable for temperature 101.9. Patient declined medication, stating, it's just the normal process of healing.
[2021-10-17] MEDS: lisinopriL 10 MG TABLET PO (20:27)
[2021-10-17] MEDS: ATORVASTATIN 20 MG TABLET 40 MG PO (20:27)
[2021-10-17] MEDS: METOPROLOL ER 25 MG TABLET PO (20:27)
[2021-10-18] VITALS: BP 124/66; PULSE 88; RESP 16; TEMP 37.6; O2SAT 98; O2SAT 99
[2021-10-18 04:00] VITALS: BP 112/64; PULSE 68; RESP 16; TEMP 37.9; O2SAT 98
[2021-10-18 05:49] LABS: Add Manual Diff / Slide Review NO; Basophils Absolute Auto 0 /uL (0-100); Basophils Percent Auto 0.2 % (0-2); Eosinophils Absolute Auto 0 /uL (0-450); Eosinophils Percent Auto 0.2 % (2-4); Hematocrit 31.7 % (41-53); Hemoglobin 10.9 g/dL (13.5-17.5); Lymphocytes Absolute Auto 1400 /uL (1100-4500); Lymphocytes Percent Auto 11.6 % (25-40); Mean Corpuscular HGB Conc 34.4 % (30-36); Mean Corpuscular Hemoglobin 28.6 PG (26-34); Mean Corpuscular Volume 83.4 fL (80-100); Monocytes Absolute Auto 1900 /uL (0-900); Monocytes Percent Auto 15.7 % (3-14); Neutrophils Absolute Auto 8900 /uL (1500-7000); Neutrophils Percent Auto 72.3 % (50-75); Platelet Count 276 X10^3/uL (150-400); Red Cell Distribution Width 14.4 % (11.6-14.8); White Blood Cell Count 12.4 X10^3/uL (4.5-11.0)
[2021-10-18 06:02] LABS: BUN Creatinine Ratio 20.6 (6-22); Blood Urea Nitrogen 22 mg/dL (9-20); Calcium 8.3 mg/dL (8.4-10.2); Carbon Dioxide 26 mmol/L (22-32); Chloride 101 mmol/L (98-107); Estimated Glomerular Filt Rate > 60 mL/min (>60); Glucose 127 mg/dL (80-110); HEMOLYSIS < 15 (0-50); Potassium 4.7 mmol/L (3.4-5.1); Sodium 133 mmol/L (137-145)
--- NOTE | 2021-10-18 07:10 | DI.RAD.S_ITS ---
PROCEDURE: XR CHEST 1V INDICATIONS: fever TECHNIQUE: One view of the chest was acquired. COMPARISON: [facility], CR, XR CHEST 1V, 10/16/2021, 14:56. [facility], CR, XR CHEST 1V, 03/14/2020, 9:36. FINDINGS: Surgical changes and devices: None. Lungs and pleura: Lungs are clear. No pleural effusions or pneumothorax. Mediastinum: Mediastinal contours appear normal. Heart size is normal. Bones and chest wall: No suspicious bony lesions. Overlying soft tissues appear unremarkable. IMPRESSION: No acute radiographic abnormality. Dictated by: Luis Valadez M.D. on 10/18/2021 at 9:51 Approved by: Luis Valadez M.D. on 10/18/2021 at 9:51
[2021-10-18 07:36] VITALS: BP 114/61; PULSE 80; RESP 19; TEMP 36.6; O2SAT 96
[2021-10-18] MEDS: ENOXAPARIN 40 MG/0.4 ML SYRINGE SUBCUT (08:30)
--- NOTE | 2021-10-18 09:17 | CM.DPC ---
Addendum entered by Sharmaine Do R.N. 10/18/21 16:25: Patient has discharge orders. Asked patient about home health, he stated, talk to my , she can answer questions. Called spouse, Claudia. She is not familiar with home health, but did explain services, and that nursing and therapies can come out to the house a couple of times a week to work with patient. She is appreciative of this. She has 'no preferences upon agencies, since she is not familiar with them. On the calendar, [facility] is listed for this week. Left a [facility] brochure for patient and spouse, and let her know that this will be ordered. Called Emeka at [facility] and let her know about referral, updated hospitalist. Faxed over face sheet, face to face, orders, DC Summary, H&P, and P.T. notes. Patient will discharge with [facility]. Original Note: DCP Cont: Met briefly with patient. His plan is to go home with spouse. Did bring him a Medicare Choice List noting home health agencies, should he need P.T. at home. Nursing indicated, he was slow to move. His spouse will be here today, and will meet with P.T. to work with patient. P: DCP to continue to follow. Plan is home when stable, will see how he does with P.T. Sharmaine Do RN/Reading Specialist
--- NOTE | 2021-10-18 09:30 | P.PN_ITS ---
Subjective Subjective Date Patient Seen: 10/18/21 Time Patient Seen: 09:30 Interval history: Pt sitting up in chair comfortably. Reports h/o gout in left knee w/ current, painful flare. Worked w/ PT yesteray, pt planning on going home tomorrow. Exam Vital Signs (past 8 hours): - 10/18/21 04:00 10/18/21 07:36 10/18/21 07:00 Temperature 100.2 F H 97.9 F Pulse Rate 68 80 Respiratory Rate 16 19 Blood Pressure 112/64 114/61 Pulse Oximetry 98 96 Oxygen Delivery Method Room Air Oxygen Flow Rate 0 0 Oxygen Delivery Method Room Air Oxygen Flow Rate 0 Narrative Exam Narrative: 0/5 hip flexor, 3/5 quadriceps, 5/5 hamstrings, DF, PF, EHL on left. Calves soft, compressible, nontender and without palpable cords or masses. Gauze and tegaderm dressing placed intraoperatively CDI. Objective Labs Result Diagrams: 10/18/21 05:18 10/18/21 05:18 Labs: Laboratory Results - last 24 hr 10/18/21 10/18/21 05:18 05:18 WBC 12.4 H RBC 3.80 L Hgb 10.9 L Hct 31.7 L MCV 83.4 MCH 28.6 MCHC 34.4 RDW 14.4 Plt Count 276 Neut % (Auto) 72.3 Lymph % (Auto) 11.6 L [place] % (Auto) 15.7 H Eos % (Auto) 0.2 L Baso % (Auto) 0.2 Neut # (Auto) 8900 H Lymph # (Auto) 1400 [place] # (Auto) 1900 H Eos # (Auto) 0 Baso # (Auto) 0 Sodium 133 L Potassium 4.7 Chloride 101 Carbon Dioxide 26 BUN 22 H Creatinine 1.07 Estimated GFR > 60 BUN/Creatinine Ratio 20.6 Glucose 127 H Calcium 8.3 L PFSH Medical History Aortic root dilatation BPH w urinary obs/LUTS CAD (coronary artery disease) (~2014) Essential hypertension History of gout History of stroke Impaired fasting glucose Left ventricular hypertrophy due to hypertensive disease Leukocytosis Mild aortic stenosis Mixed hyperlipidemia Surgical History S/P appendectomy Status post primary angioplasty with coronary stent (02/16/15) Family History Mother Breast cancer genetic susceptibility Father No pertinent past medical history Social History household members: spouse Smoking Status: Never smoker Assessment & Plan Post-op Assessment and plan (1) Closed left hip fracture: Assessment and Plan narrative: WBAT on LLE.? May d/c home when safe per PT and medically stable per hospitalist service.? Continue enoxaparin daily through 10/27 for VTE prophylaxis; on 10/28, start ASA 81 mg BID x 5 weeks, then can return to regular home dose of ASA daily.? Follow up w/ Kira Am[facility] for staple removal between October 26 and Oct 30. Postoperative Procedures: Procedures Operation Date: 10/16/21 17:15 Actual Procedure Side Surgeon p ORIF Hip DHS Left Seven Neal MD Postoperative day: 2
--- NOTE | 2021-10-18 10:25 | OT.IP.EVAL ---
Current Diagnoses Fracture of unspecified part of neck of left femur, initial encounter for closed fracture (10/16/21) Surgery Performed Operation Date: 10/16/21 17:15 Actual Procedures p ORIF Hip DHS(Left) - Seven Neal MD Past Medical History (Last Reviewed 10/16/21 @ 17:49 by Navarro Em DO) Aortic root dilatation BPH w urinary obs/LUTS CAD (coronary artery disease) (~2014) Essential hypertension History of gout History of stroke Impaired fasting glucose Left ventricular hypertrophy due to hypertensive disease Leukocytosis Mild aortic stenosis Mixed hyperlipidemia Surgical History (Last Reviewed 10/16/21 @ 17:49 by Navarro Em DO) S/P appendectomy Status post primary angioplasty with coronary stent (02/16/15) Occupational Therapy Inpatient Evaluation/Re-Eval M1 PT/OT-IP Prior Functional Status Start: 10/17/21 12:29 Freq: NEEDED Status: Active Protocol: Document 10/18/21 09:47 [facility] (Rec: 10/18/21 12:58 [facility] [id number]) Medical Review Prior Functional Status Medical History Reviewed Yes Communication able to make needs known Mobility and Gait pt stated that he is independent with all mobilities and ambulation without AD Activities of Daily Living and IADL's Completely independent with all ADL,IADL, sails and drives . Social History Household Members spouse Living Arrangements Apartment/Condo Number of Floors (Floors) One Floor Number of Stairs To Enter/Railing? has an elevator to get into his apartment level Home Environment High Toilet,Walk in Shower, Elevator Home Equipment Shower Seat without Backrest M2 OT-IP Current Condition Start: 10/18/21 12:38 Freq: Status: Active Protocol: Document 10/18/21 09:47 [facility] (Rec: 10/18/21 12:58 [facility] [id number]) Occupational Therapy Current Condition Current Condition Evaluation Date 10/18/21 Treatment Diagnosis Left prox. femur fx, s/p ORIF , mobility Diagnosis Onset Date 10/16/21 M3 OT- IP Subjective and Pain Start: 10/18/21 12:38 Freq: Status: Active Protocol: Document 10/18/21 09:47 [facility] (Rec: 10/18/21 12:58 [facility] [id number]) OT- Subjective Occupational Therapy Visit Type Type Initial Evaluation Visit Start Time 09:47 Visit Stop Time 10:25 Total Visit Minutes 38 Occupational Therapy Visit Comments Patient Comments Pt agreed to get up. Pt requesting pain medication and nursing notified. Pt's present at the end of the session. Patient/Caregiver Goals To go home. OT Pain Assessment Pain When Pain Assessed At Rest Pain Present Pain Present Reassessed Location Left Knee Intensity 4 Scale Used Numeric (0 - 10) M4 OT- IP ADL's Start: 10/18/21 12:38 Freq: Status: Active Protocol: Document 10/18/21 09:47 [facility] (Rec: 10/18/21 12:58 [facility] [id number]) OT NPO-Sqih-Axiufjp General Evaluation Self-Feeding Ability Independent OT ADL-Grooming General Evaluation Grooming Ability Independent Comments OT Grooming Comments while seated OT ADL-Oral Care General Eval Oral Care Ability Independent Comments Oral Care Comments while seated OT ADL-Dressing General Eval Lower Body Dressing Ability Maximum Assistance Comments OT Dressing Comments Educated pt on use of sock aid and dural mechanic. At this time pt not able to lift his LLE up due to left knee pain. Pt able to practice use of dural mechanic and sock aid and has good understanding to dress the left side first. OT ADL-Toileting Comments OT Toileting Comments Pt not having to go. Pt will benefit from urinal and BSC for home use. OT ADL-Bathing Comments OT Bathing Comments Sponge bath more appropriate at this time. M5 OT- IP IADL's Start: 10/18/21 12:38 Freq: Status: Active Protocol: Document 10/18/21 09:47 [facility] (Rec: 10/18/21 12:58 [facility] [id number]) OT-Instrumental Activities of Daily Living Home Safety Awareness Awareness of Need for Assistance at Home Good Awareness Ability to Problem Solve Emergency Able to Problem Solve Situations Home Safety Comments Pt a little groggy and would benefit from his to assist with needs. Smokehouse Operator Smokehouse Operator Caregiver Provides Assist M6 OT- IP Functional Cognition Start: 10/18/21 12:38 Freq: Status: Active Protocol: Document 10/18/21 09:47 [facility] (Rec: 10/18/21 12:58 [facility] [id number]) Cognitive Factors Limiting Selfcare Function Cognitive Ability Level of Alertness Alert,Drowsy Patient Orientation Name,Place,Situation Attention Span Ability Capable of Focused Attention, Capable of Sustained Attention Ability to Follow Commands Able to Follow One Step Commands Memory Description Short Term Impaired Cognitive Comments Cognitive Assessment Comments Pt a bit drowsy, groggy and having difficulty with his short term memory as not recalling that the PA came to talk to him and remembering what was said initially. OT- Vision and Hearing OT- Hearing Assessment OT- Hearing Assessment WFL OT- Vision Assessment Visual Acuity Glasses All The Time M7 OT- IP Mobility and Balance Start: 10/18/21 12:38 Freq: Status: Active Protocol: Document 10/18/21 09:47 [facility] (Rec: 10/18/21 12:58 [facility] [id number]) OT-Transfer Assessment Sit to and From Stand Sit to and from Stand Maximum Assistance Comments Mobility Comments Pt needing MAX AX 1 to stand to FWW. OT- Balance Assessment Sitting Balance and Reactions Static Sitting Balance Ability Normal Dynamic Sitting Balance Ability Good Standing Balance and Reactions Static Standing Balance Ability Poor Comments Other Balance Tests/Deviations/Treatment Pt heavily relying on his RLE : to stand as having severe pain with his left knee. M8 OT- IP Objective Assessments Start: 10/18/21 12:38 Freq: Status: Active Protocol: Document 10/18/21 09:47 [facility] (Rec: 10/18/21 12:58 [facility] [id number]) OT Gross Range of Motion Upper Extremity Range of Motion Assessment Within Functional Limits OT Strength Upper Extremity Strength Assessment Within Functional Limits OT-Muscle Tone Assessment Muscle Tone WNL Yes M9 OT- IP Assessment and Plan Start: 10/18/21 12:38 Freq: Status: Active Protocol: Document 10/18/21 09:47 [facility] (Rec: 10/18/21 12:58 [facility] [id number]) OT Summary Assessment and Plan Potential Rehabilitation Potential Good Analytic Complexity at Evaluation Low Summary OT Impairments Pain,Balance,Functional Cognition,Functional Mobility, Grooming,Dressing,Toileting, Bathing,Toilet Transfers, Shower Transfers,Activity Tolerance Progress Towards Goals Slow Progress due to Pain,Slow Progress due to Medical Issues,Slow Progress due to Cognition Assessment Summary Pt low complexity and main barriers are pain, groggy from pain medications, decreased balance and needing MAXA for ADL and mobility needs. Pt states just had arm surgery and not able to do any lifting. Therefore at this time, pt would greatly benefit from short skilled rehab stay . Pt's is insistent that she can provide enough assist for him. In addition pt now having increased left knee pain from gout which is also limiting his mobility and ADl needs. Suggested pt to go to skilled rehab versus pending caregiver training and medical progress home with 24/7 assist and home health. Goals Grooming Goal Independent Dressing Goal Independent Toileting Goal Independent Bathing Goal Independent Toilet Transfer Goal Independent Shower Transfer Goal Independent Patient/Caregiver Education Goal Caregiver Independent Assisting Patient Days to Meet Goals 10 Frequency of Treatment Frequency Of Treatment Once a Day Treatment Plan OT Treatment Plan ADL Training,Functional Cognition Training,Functional Mobility,Patient/Family Education,Discharge Planning Other Treatment Recommendations and Next LB dressing,toileting Treatment Focus Discharge Recommendations OT Discharge Recommendations SNF Rehab,Home vs SNF Other Discharge Recommendations Pending progress, caregiver training possibly home with 24 /7 assist. However pt's has lifting restrictions and therefore more likely SNF. Home Equipment Needs WC,FWW, shower chair, HHSP Transportation Needs at Discharge Wheelchair/Cabulance
[2021-10-18] MEDS: INDOMETHACIN 25 MG CAPSULE 50 MG PO ×2 (10:30→16:06)
[2021-10-18] MEDS: CALCIUM CARB/VIT D3 500/200 TABLET 1 EACH PO (10:32)
--- NOTE | 2021-10-18 10:38 | PT.IPTN ---
Current Diagnoses Fracture of unspecified part of neck of left femur, initial encounter for closed fracture (10/16/21) Surgery Performed Operation Date: 10/16/21 17:15 Actual Procedures p ORIF Hip DHS(Left) - Seven Neal MD Physical Therapy Treatment Note M2 PT-IP Current Condition Start: 10/17/21 12:29 Freq: NEEDED Status: Active Protocol: Document 10/18/21 10:25 [facility] (Rec: 10/18/21 13:03 SP [id number]) Physical Therapy Current Condition Current Condition Evaluation Date 10/17/21 Treatment Diagnosis L prox femoral fx s/p ORIF; difficulty in walking Onset Date M3 PT-IP Subjective Start: 10/17/21 12:29 Freq: NEEDED Status: Active Protocol: Document 10/18/21 10:25 SP (Rec: 10/18/21 13:03 SP [id number]) Subjective Physical Therapy Visit Type Type Treatment Note Visit Start Time 10:25 Visit Stop Time 10:38 Total Visit Minutes 13 Notes in room, ENTREPRENEUR initiated CGT. Pt only able to provide some help due to L elbow surgery in the past month and on lifting restrictions <8#, maintained mainly use of RUE to provide support to pt, demonstrated. Number of ENTREPRENEUR Visits 1 Physical Therapy Visit Comments Patient Comments Pt agreeable to do PT when arrives upon first attempt. When returned stated in alot pain, gout L knee and waiting on meds for pain support. Pt agreeable to getting back to bed. Patient Goals reports wants pt to go home with her, pt agreeable if able to move well. M4 PT-IP Mobility and Gait Start: 10/17/21 12:29 Freq: NEEDED Status: Active Protocol: Document 10/18/21 10:25 SP (Rec: 10/18/21 13:03 SP [id number]) PT-Bed Mobility Assessment Sit to Supine Sit to Supine Maximum Assistance,2 Person Assistance,Head of Bed Elevated PT-Transfer Assessment Sit to and From Stand Sit to and from Stand Moderate Assistance,2 Person Assistance,Use of Upper Extremities Equipment Transfer Assistive Device Gait Belt,Front Wheeled Walker Orthotic/Prosthetic Devices or Brace: Yes Transfers Transfer Destination Bed Transfer Technique Stand Step Pivot Transfer Ability Level of Assist Moderate Assistance,2 Person Assistance,Use of Upper Extremities Comments Mobility Comments Pt in alot pain L knee gout when arrived 2nd attempt, scoot to EOB CGA. donned gait belt at waist cues for proper fasten, Sit>stand and stand step pivot transfer chair> bed Mod A x2 w/ FWW, decreased L knee extension and WB due to pain. Stand>sit Mod A x2, sit>supine Max A x2 for trunk and BLE into bed assist, pt able scoot and center self with use of bed rails. Will continue to assess progress and complete CGT in afternoon, assessing DC plan home vs SNF ability. Gait Assessment Gait Gait Assistance Required: Moderate Assistance,1 Person Assist,2 Person Assist Distance (Feet) 2 Able to Maintain Weight Bearing Status Yes During Gait Assistive Devices Assistive Device Gait Belt,Front Wheeled Walker Orthotic/Prosthetic Devices or Brace: Yes Gait Deviations General Gait Pattern Antalgic,Decreased Stride Length,Decreased Feet Clearance,Flexed Trunk,Step-to Gait Factors Limiting Gait Function Factors Limiting Gait Function Decreased Activity Tolerance, Decreased Strength,Difficulty Following Directions,Limited Range of Motion,Pain,Poor Balance,Poor Safety Awareness Comments Gait Comments See mobility comments. PT-Balance Assessment Sitting Balance and Reactions Static Sitting Balance Ability Fair Dynamic Sitting Balance Ability Fair Standing Balance and Reactions Static Standing Balance Ability Poor Dynamic Standing Balance Ability Poor Device Used FWW M5 PT-IP Objective Assessments Start: 10/17/21 12:29 Freq: NEEDED Status: Active Protocol: Document 10/17/21 11:19 [facility] (Rec: 10/17/21 12:45 AB [id number]) Orientation Orientation/Cognition Level of Alertness Alert Orientation Name,Place,Situation Language Function Ability No Deficits Noted Safety Awareness Decreased Safety Awareness Memory Description Short Term Impaired Gross Range of Motion Lower Extremity ROM Assessment Left Impaired Impairments increase LLE muscle guarding affecting ROM Strength Lower Extremity Strength Assessment Left Impaired Hip 3-/5 Knee 3-/5 Muscle Tone Muscle Tone WNL Yes M6 PT-IP Treatment Start: 10/17/21 12:29 Freq: NEEDED Status: Active Protocol: Document 10/18/21 10:25 SP (Rec: 10/18/21 13:03 SP [id number]) Physical Therapy Treatment Education Education Provided Safety M7 PT-IP Assessment and Plan Start: 10/17/21 12:29 Freq: NEEDED Status: Active Protocol: Document 10/18/21 10:25 SP (Rec: 10/18/21 13:03 SP [id number]) PT Summary Assessment and Plan Potential Rehabilitation Potential Fair Status of Condition at Evaluation Evolving Summary Impairments Pain,ROM,Strength,Balance, Coordination,Sensation,Tone, Cognition,Bed Mobility, Transfers,Gait,Activity Tolerance Progress Towards Goals Slow Progress due to Pain,Slow Progress due to Medical Issues,Slow Progress due to Activity Tolerance Assessment Summary Pt requiring physical assist due to L knee gout pain, unableto bear much weight on LLE, Mod A x2 for transfers w/ FWW and Max Ax2 for bed mobility sit>supine. Will assess further progress in early pm after receives medication new orders for pain /gout. Currently recommending SNF vs Home with 24/7 assist available support of . is still recovering and restrictions of lifting LUE s/ p 1 mo surgical procedure Goals Bed Mobility Goal Minimal Assistance Transfer Goal Minimal Assistance,Front Wheeled Walker Gait Goal Minimal Assistance,Front Wheel Walker Gait Distance 50 Other Goals improve bed mobility, transfers and ambulation using fWW 150 ft SBA Days to Meet Goals 10 Frequency of Treatment Frequency Of Treatment Twice a Day Treatment Plan Physical Therapy Treatment Plan Bed Mobility Training,Transfer Training,Gait Training, Therapeutic Exercise,Balance Retraining,Post Op Education, Discharge Planning,Hot or Cold Pack,Neuromuscular Re-ed, Coordination Retraining,Manual Therapy Other Recommendations and Next Treatment LE ex, bed mob, transfers, Focus gait w/ FWW. Precautions Other Precautions falls Weight Bearing Status Weight Bearing Status Weight Bear as Tolerated Allowed Weight Bearing Amount (enter % LLE WBAT or #) (%) Recommendations To Nursing Amount of Assist Needed 2 Person Assist Discharge Recommendations PT Discharge Recommendations Home with 24/7 Assist Available,Home Health,SNF Rehab,Home vs SNF Equipment Needed for Home Before Dispense FWW if going home Discharge Transportation Needs at Discharge Private Vehicle,Wheelchair/ Cabulance
--- NOTE | 2021-10-18 11:48 | PC.NURSE ---
Pt stated needed to have BM, during transfer with two RN pt was unable to move L leg forward stating that his gout in L knee is making it difficult to walk. RN consulted with hospitalist for Indomethacin, because pt requested this stating he takes it at home for gout flareups. Pt was unable to walk length to bathroom, but made it to chair. is at bedside, eager to learn caregiver training from staff. Pt tolerating pain well with indomethacin and rest.
[2021-10-18 11:54] VITALS: BP 124/58; PULSE 69; RESP 19; TEMP 37.1; O2SAT 94
--- NOTE | 2021-10-18 13:57 | PT.IPTN ---
Current Diagnoses Fracture of unspecified part of neck of left femur, initial encounter for closed fracture (10/16/21) Surgery Performed Operation Date: 10/16/21 17:15 Actual Procedures p ORIF Hip DHS(Left) - Seven Neal MD Physical Therapy Treatment Note M2 PT-IP Current Condition Start: 10/17/21 12:29 Freq: NEEDED Status: Active Protocol: Document 10/18/21 13:06 SP (Rec: 10/18/21 15:53 SP [id number]) Physical Therapy Current Condition Current Condition Evaluation Date 10/17/21 Treatment Diagnosis L prox femoral fx s/p ORIF; difficulty in walking Onset Date M3 PT-IP Subjective Start: 10/17/21 12:29 Freq: NEEDED Status: Active Protocol: Document 10/18/21 13:06 SP (Rec: 10/18/21 15:53 SP [id number]) Subjective Physical Therapy Visit Type Type Treatment Note Visit Start Time 13:06 Visit Stop Time 13:57 Total Visit Minutes 51 Notes complete CGT, able provide all assist pt requires and stay within her LUE lifting precautions <8-10#( reported 1 mo s/p arm surgery) . Physical Therapy Visit Comments Patient Comments Pt agreeable to do PT, states his L knee pain much better after medication for gout. Patient Goals Pt wants to return home with , able to assist him 21/09 . M4 PT-IP Mobility and Gait Start: 10/17/21 12:29 Freq: NEEDED Status: Active Protocol: Document 10/18/21 13:06 SP (Rec: 10/18/21 15:53 SP [id number]) PT-Bed Mobility Assessment Sit to Supine Sit to Supine Minimal Assistance,1 Person Assistance,Head of Bed Elevated,Bedrails Scooting Scooting to Edge of Bed Contact Guard Assistance, Minimal Assistance PT-Transfer Assessment Sit to and From Stand Sit to and from Stand Contact Guard Assistance, Minimal Assistance,1 Person Assistance,Use of Upper Extremities Equipment Transfer Assistive Device Gait Belt,Front Wheeled Walker Orthotic/Prosthetic Devices or Brace: Yes Transfers Transfer Destination Chair Transfer Technique pt ambulated with FWW Transfer Ability Level of Assist Contact Guard Assistance, Minimal Assistance,1 Person Assistance,Use of Upper Extremities Comments Mobility Comments Post op ex reviewed: quad and glut set, AP, heel slide with strap on L foot. Elevated supine>sit Min A to pull from hand to right trunk sit then self LLE to EOB using strap on foot CGA. donned gait belt pt trunk, Sit>stand Min A initially with cues push from bed. Gait CGA- 5%A w / FWW via , cues by [employer] then LLE increase hip flexion and DF for foot clearance and stride step to across room to chair 15 ft, stand step pivotback to chair, cued look center self and reach improved slow descend sit chair Min A. Sit<>stand CGA, gait across room and back to sit in chair w/ FWW x4 sets 30 ft, improved foot clearance/ stride each time. Pt stayed up in chair end tx had call light and all needs in reach. stated acquired shower chair, w/c for home from [employer], still plans have hospital dispense FWW for home. Pt is ok to return home with to assist him / can be available, recommending HHPT and pt/ agreed to help with strengthening. stated is having some caregivers come in to assist for first few days up to week needed. Gait Assessment Gait Gait Assistance Required: Contact Guard Assist,Minimum Assistance,1 Person Assist Distance (Feet) 30 Able to Maintain Weight Bearing Status Yes During Gait Assistive Devices Assistive Device Gait Belt,Front Wheeled Walker Orthotic/Prosthetic Devices or Brace: Yes Gait Deviations General Gait Pattern Antalgic,Decreased Stride Length,Decreased Feet Clearance,Step-to Gait Factors Limiting Gait Function Factors Limiting Gait Function Decreased Activity Tolerance, Decreased Strength,Limited Range of Motion,Pain,Poor Safety Awareness Comments Gait Comments see mobility comments Stair Climbing Assessment Comments Stair Climbing Comments no stairs at home need to assess. PT-Balance Assessment Sitting Balance and Reactions Static Sitting Balance Ability Good Dynamic Sitting Balance Ability Fair Standing Balance and Reactions Static Standing Balance Ability Good Dynamic Standing Balance Ability Fair Device Used FWW M5 PT-IP Objective Assessments Start: 10/17/21 12:29 Freq: NEEDED Status: Active Protocol: Document 10/17/21 11:19 AB (Rec: 10/17/21 12:45 AB [id number]) Orientation Orientation/Cognition Level of Alertness Alert Orientation Name,Place,Situation Language Function Ability No Deficits Noted Safety Awareness Decreased Safety Awareness Memory Description Short Term Impaired Gross Range of Motion Lower Extremity ROM Assessment Left Impaired Impairments increase LLE muscle guarding affecting ROM Strength Lower Extremity Strength Assessment Left Impaired Hip 3-/5 Knee 3-/5 Muscle Tone Muscle Tone WNL Yes M6 PT-IP Treatment Start: 10/17/21 12:29 Freq: NEEDED Status: Active Protocol: Document 10/18/21 13:06 SP (Rec: 10/18/21 15:53 SP [id number]) Physical Therapy Treatment Exercises Exercises Ankle Pumps,Gluteal Sets,Quad Sets,Heel Slides,Seated Knee Flexion/Extension Knee ROM Measurement L knee AAROM approx 40 deg w/ strap on L foot Education Education Provided Safety M7 PT-IP Assessment and Plan Start: 10/17/21 12:29 Freq: NEEDED Status: Active Protocol: Document 10/18/21 13:06 SP (Rec: 10/18/21 15:53 SP [id number]) PT Summary Assessment and Plan Potential Rehabilitation Potential Fair Status of Condition at Evaluation Evolving Summary Impairments Pain,ROM,Strength,Balance, Coordination,Sensation,Tone, Cognition,Bed Mobility, Transfers,Gait,Activity Tolerance Progress Towards Goals Progressing Toward Goals,Slow Progress due to Medical Issues ,Slow Progress due to Activity Tolerance Assessment Summary Pt required min A bed mobility , CG- 5%A during transfers and gait w/ FWW x4 laps across room/back with seated rest due to tiring recovery briefly. Improved decrease/no pain with mobility this tx. Mod UE WB on FWW during gait reported more for nervous pain L knee than hip, cues for LLE hip flexion/DF for improved stride / clearance. Recommending HHPT for ROM, functional strengthening toward independence. Goals Bed Mobility Goal Minimal Assistance Transfer Goal Minimal Assistance,Front Wheeled Walker Gait Goal Minimal Assistance,Front Wheel Walker Gait Distance 50 Other Goals improve bed mobility, transfers and ambulation using fWW 150 ft SBA Days to Meet Goals 10 Frequency of Treatment Frequency Of Treatment Twice a Day Treatment Plan Physical Therapy Treatment Plan Bed Mobility Training,Transfer Training,Gait Training, Therapeutic Exercise,Balance Retraining,Post Op Education, Discharge Planning,Hot or Cold Pack,Neuromuscular Re-ed, Coordination Retraining,Manual Therapy Other Recommendations and Next Treatment LE ex, bed mob, transfers, Focus gait w/ FWW. Precautions Other Precautions falls Weight Bearing Status Weight Bearing Status Weight Bear as Tolerated Allowed Weight Bearing Amount (enter % LLE WBAT or #) (%) Recommendations To Nursing Amount of Assist Needed 1 Person Assist Discharge Recommendations PT Discharge Recommendations Home with 24/7 Assist Available,Home Health Other Discharge Recommendations able acquire shower chair , manual w/c for home. Equipment Needed for Home Before Dispensed FWW if going home Discharge Transportation Needs at Discharge Private Vehicle
--- NOTE | 2021-10-18 14:38 | PM.DS.1 ---
History of Present Illness History of Present Illness Date Patient Seen: 10/18/21 Chief complaint: GLF Narrative: This is a 81 year old male with PMH of HTN, HLD, CAD who presented with left hip pain after a mechanical fall at home. He did not hit his head and denies pain in any other location. He denies recent chest pain, shortness of breath, dyspnea on exertion, lower extremity edema, palpitations, or dizziness . He denies any recent abdominal pain, nausea, vomiting, diarrhea, or constipation. He denies fever or chills. Imaging in the emergency room showed a displaced intertrochanteric fracture of the left femur. Laboratory evaluation was notable for a mild leukocytosis with WBC of 18.9, creatinine of 1.12 with a CK of 513. Troponin was undetectable. EKG showed some chronic inferior T-wave inversions, but no significant changes compared to his baseline. COVID-19 testing was negative. He was admitted for further management of his intertrochanteric left femur fracture with orthopedic consultation and surgery planned for this evening. Discharge Providers Provider Date of admission: 10/16/21 15:56 Discharge Date: 10/18/21 Primary care physician: LILLY Bain Consults: 10/16/21 17:08 Consult to Orthopedic Surgery Routine Comment: Consulting Provider: Seven Neal Reason for consultation: left hip Has provider been notified: Yes 10/16/21 17:09 Consult to Orthopedic Surgery Routine Comment: Consulting Provider: Seven Neal Reason for consultation: L hip fracture 10/16/21 21:02 Consult to Discharge Planning Routine Comment: Consult to Physical Therapy Evaluate & Treat Comment: Physician Instructions: Evaluate and Treat 10/17/21 14:37 Consult to Occupational Therapy Evaluate & Treat Comment: Physician Instructions: Evaluate and treat Discharge provider: Navarro Em DO Summary Hospital Course Discharge Diagnosis: 1. Left intertrochanteric femur fracture, pathologic likely due to osteoporosis, present on admission 2. Rhabdomyolysis 3. HTN 4. CAD 5. Gout flare, acute, not present on admission. 6. Post operative fever Hospital Course: This is a 81-year-old male with a past medical history of hypertension and CAD who was admitted after a left intertrochanteric femur fracture as result of a mechanical fall. He underwent operative interventions with Orthopedic surgery. Prior to his surgery he had a mild rhabdomyolysis which improved with normal saline bolus and fluids. He was able to adequately hydrate orally after surgery. On postoperative day 1 he had a a fever of 101 without any obvious signs or symptoms of infection. The following day, he had some mild knee swelling similar to prior gout flares for him. His left knee pain resolved quickly with indomethacin, a chest x-ray was performed without any obvious signs of pneumonia and the patient had no dysuria or urinary frequency. He had no further fever. Fever was most likely non infectious this time and may be related to his surgery, atelectasis or minor gout flare. The patient did well with physical therapy and wished to be discharged home. Given low likelihood of current infection, and his well appearance, as well as agreement from orthopedic surgery, he was discharged home. He was given return precautions including continue fever, chest pain, malaise, or worsening redness. He was given aspirin BID for 5 weeks for DVT prevention per orthopedics. He will follow up with them as an outpatient. Time Spent with Patient Time spent: Greater than 30 minutes Exam Vital Signs (past 8 hours): - 10/18/21 07:36 10/18/21 07:00 10/18/21 11:00 Temperature 97.9 F Pulse Rate 80 Respiratory Rate 19 Blood Pressure 114/61 Pulse Oximetry 96 Oxygen Delivery Method Room Air Room Air Oxygen Flow Rate 0 10/18/21 11:54 Temperature 98.8 F Pulse Rate 69 Respiratory Rate 19 Blood Pressure 124/58 L Pulse Oximetry 94 Oxygen Delivery Method Oxygen Flow Rate 0 Oxygen Delivery Method Room Air Oxygen Flow Rate 0 Narrative Exam Narrative: General:? Patient is well developed and well nourished, in no distress at this time. HEENT:? Normocephalic, atraumatic, extraocular muscles intact, oral pharynx is clear and mucous membranes are moist. Neck: supple and symmetric, trachea is midline Chest:? Normal AP diameter and contour without kyphoscoliosis, no tachypnea, equal chest rise bilaterally. Lungs:? CTA b/l no wheezing rhonchi or rales. Cardio:?RRR no m/r/g. Abdomen: S NT ND. No CVA tenderness. Musculoskeletal:? L thigh dressing c/d/i. Slight swelling and tightness of L calf. +2 L popliteal pulse. L knee mildly tendern anteriorly with minimal effusion/swelling. No ertyhema, left leg mild warmth. Extremities: No edema or joint effusions. No cyanosis or clubbing. Skin:? Pale,? Warm to touch,dry and intact without rashes, ulcerations or petechiae.? Neuro:? Alert and orientated x3,? sensation to touch intact in all extremities, no gross deficits noted of cranial nerves. Psych:? Patient has a well-kept appearance, appropriate affect, mental status attitude thought context and judgment are appropriate for age. Objective Labs Result Diagrams: 10/18/21 05:18 10/18/21 05:18 Labs: Laboratory Results - last 24 hr 10/18/21 10/18/21 05:18 05:18 WBC 12.4 H RBC 3.80 L Hgb 10.9 L Hct 31.7 L MCV 83.4 MCH 28.6 MCHC 34.4 RDW 14.4 Plt Count 276 Neut % (Auto) 72.3 Lymph % (Auto) 11.6 L [place] % (Auto) 15.7 H Eos % (Auto) 0.2 L Baso % (Auto) 0.2 Neut # (Auto) 8900 H Lymph # (Auto) 1400 [place] # (Auto) 1900 H Eos # (Auto) 0 Baso # (Auto) 0 Sodium 133 L Potassium 4.7 Chloride 101 Carbon Dioxide 26 BUN 22 H Creatinine 1.07 Estimated GFR > 60 BUN/Creatinine Ratio 20.6 Glucose 127 H Calcium 8.3 L PFSH Medical History Aortic root dilatation BPH w urinary obs/LUTS CAD (coronary artery disease) (~2014) Essential hypertension History of gout History of stroke Impaired fasting glucose Left ventricular hypertrophy due to hypertensive disease Leukocytosis Mild aortic stenosis Mixed hyperlipidemia Surgical History S/P appendectomy Status post primary angioplasty with coronary stent (02/16/15) Family History Mother Breast cancer genetic susceptibility Father No pertinent past medical history Social History household members: spouse Smoking Status: Never smoker Discharge Plan Discharge Plan Patient Disposition: Home Provider Discharge Comment: You were admitted to the hospital after a L hip fracture, you had a gout flare after surgery and improved with medication. Please continue oxycodone as needed for pain. If your fever returns or you feel ill please return for evaluation. You should take aspirin twice daily for 5 weeks as recommended by your orthopedic surgeons. You should follow up with orthopedic surgery in a couple weeks in their clinic. Discharge orders & Medications Prescriptions: New oxycodone 5 mg Tablet 5 mg PO Q3HR PRN (Reason: Pain, Mild (1-3)) 7 Days Qty: 25 0RF aspirin 81 mg tablet,delayed release (DR/EC) 81 mg PO BID 35 Days Qty: 70 0RF Continued atorvastatin 20 mg tablet 40 mg PO DAILY Rx Instructions: pt takes at bedtime lisinopril 10 mg tablet 10 mg PO DAILY metoprolol succinate [Toprol XL] 25 mg tablet extended release 24 hr 25 mg PO DAILY Discontinued aspirin [Adult Low Dose Aspirin] 81 mg tablet,delayed release (DR/EC) 81 mg PO DAILY Rx Instructions: pt takes at bedtime Follow up/Referrals: Alicia Huitron ARNP [Primary Care Provider] - Seven Neal MD [Physician] - 2 Weeks Diet/Activity/Treatments Diet: Diet as Tolerated Activity: As tolerated Visit Report/Discharge Packet Instructions: DI for Open Reduction Internal Fixation Surgery, DI for Prescription Opioid Use, Oxycodone Discharge Data Primary Care Provider: Alicia uHitron
== END 2021-10-18 17:02 | disposition home health service (06) | DRG 481 ==
LOC: ED 15:54 → AC 15:56
PROVIDERS: Orthopaedic Surgery; Admitting Provider Internal Medicine; Emergency Provider Emergency Medicine; PCP Nurse Practitioner Family; Referring Provider Emergency Medicine; Visit Provider Internal Medicine
PROC: 0QS704Z Reposition Left Upper Femur with Internal Fixation Device, Open Approach (ICD-10-PCS; principal; 2021-10-16 17:15)
DX: M80.052A Age-related osteoporosis with current pathological fracture, left femur, initial encounter for fracture (principal); M62.82 Rhabdomyolysis; R50.82 Postprocedural fever; M10.9 Gout, unspecified; I10 Essential (primary) hypertension; I25.10 Atherosclerotic heart disease of native coronary artery without angina pectoris; E78.5 Hyperlipidemia, unspecified; Z20.822 Contact with and (suspected) exposure to COVID-19; Z95.5 Presence of coronary angioplasty implant and graft
CPT/HCPCS: 36415; 71045; 73502; 76000; 80048; 80053; 82550; 82553; 84484; 85025; 87635; 93005; 93010; 96374; 96375; 97116; 97162; 97165; 97530; 97535; 99283; 99284; C9803; J0690; J1170; J1650; J2270; J2405; J3010

== ENCOUNTER → 2022-02-05 12:42 | Outpatient (CLI) | payer MEDICARE, OTHER, SELFPAY ==
[2021-10-16 17:25] VITALS: BMI 28.8
[2022-02-05 13:48] LABS: Influenza A - CEPHEID Flu A NEGATIVE (NEGATIVE); Influenza B - CEPHEID Flu B NEGATIVE (NEGATIVE); Respiratory Syncytial Virus Negative (Negative)
[2022-02-05 13:49] LABS: COVID-19 CEPHEID 4-PLEX PCR Negative (Negative)
== END ==
PROVIDERS: PCP Nurse Practitioner Family; Visit Provider Nurse Practitioner Family
DX: R05.9 Cough, unspecified (principal); Z20.822 Contact with and (suspected) exposure to COVID-19
CPT/HCPCS: 0241U

== ENCOUNTER → 2022-02-09 13:45 | Outpatient (CLI) | payer MEDICARE, OTHER, SELFPAY ==
[2021-10-16 17:25] VITALS: BMI 28.8
--- NOTE | 2022-02-09 13:48 | DI.RAD.S_ITS ---
PROCEDURE: XR CHEST 2V INDICATIONS: Continued cough TECHNIQUE: 2 views of the chest were acquired. COMPARISON: [facility], CR, XR CHEST 1V, 10/18/2021, 8:07. FINDINGS: Surgical changes and devices: None. Lungs and pleura: Lungs are clear. No pleural effusions or pneumothorax. Mediastinum: Mediastinal contours are normal. Heart size is normal. Bones and chest wall: No suspicious bony abnormalities. Soft tissues appear unremarkable. IMPRESSION: No acute cardiopulmonary process demonstrated radiographically. Dictated by: Antonio Leon M.D. on 02/09/2022 at 15:56 Approved by: Antonio Leon M.D. on 02/09/2022 at 15:56
== END ==
PROVIDERS: PCP Internal Medicine; Referring Provider Internal Medicine; Visit Provider Internal Medicine
DX: R05.9 Cough, unspecified (principal)
CPT/HCPCS: 71046

== ENCOUNTER → 2024-02-04 10:56 | Outpatient (CLI) | payer MEDICARE, OTHER, SELFPAY ==
[2021-10-16 17:25] VITALS: BMI 28.8
[2024-02-04 13:01] LABS: Add Manual Diff / Slide Review NO; Basophils Absolute Auto 100 /uL (0-100); Eosinophils Absolute Auto 300 /uL (0-450); Eosinophils Percent Auto 3.9 % (2-4); Hematocrit 42.4 % (41-53); Hemoglobin 14.3 g/dL (13.5-17.5); Lymphocytes Absolute Auto 2300 /uL (1100-4500); Mean Corpuscular HGB Conc 33.7 % (30-36); Mean Corpuscular Hemoglobin 28.9 PG (26-34); Mean Corpuscular Volume 85.7 fL (80-100); Monocytes Absolute Auto 800 /uL (0-900); Neutrophils Absolute Auto 5300 /uL (1500-7000); Neutrophils Percent Auto 60.1 % (50-75); Platelet Count 364 X10^3/uL (150-400); Red Blood Cell Count 4.96 X10^6/uL (4.5-5.9); Red Cell Distribution Width 14.6 % (11.6-14.8); White Blood Cell Count 8.8 X10^3/uL (4.5-11.0)
== END ==
PROVIDERS: PCP Internal Medicine; Referring Provider Internal Medicine Cardiovascular Disease; Visit Provider Internal Medicine Cardiovascular Disease
DX: I10 Essential (primary) hypertension (principal); I25.10 Atherosclerotic heart disease of native coronary artery without angina pectoris
CPT/HCPCS: 36415; 85025